=== PATIENT | female | born 1955 ===

== ENCOUNTER 2020-11-23 11:57 | Outpatient (REF) | payer MEDICARE, SELFPAY ==
--- NOTE | 2020-11-23 12:03 | XR_ITS ---
EXAMINATION: XR CHEST CLINICAL INFORMATION: Cough. COMPARISON: Chest 04/11/2013 TECHNIQUE: 2 views of the chest were obtained. FINDINGS: The lungs are hyperinflated but clear. The heart size and pulmonary vascularity is normal. Is mild spondylosis dorsal spine. XR/XR chest 2V IMPRESSION: Hyperinflated lungs without any acute process.
== END 2020-11-23 11:58 | disposition home or self-care (01) ==
LOC: HO.XRAY 11:57
PROVIDERS: PCP Internal Medicine; Visit Provider Internal Medicine
DX: R05 Cough (principal)
CPT/HCPCS: 71046

== ENCOUNTER 2020-12-20 14:19 | Outpatient (REF) | payer MEDICARE, SELFPAY ==
--- NOTE | ~2020-12-20 | MM_ITS ---
EXAMINATION: MM SCREENING DIGITAL BREAST TOMOSYNTHESIS, BILATERAL CLINICAL INFORMATION: Screening. Asymptomatic. The lifetime risk of breast cancer based on the Tyrer-Cuzick Model is 4%. COMPARISON: Mammography: 12/15/2019, 09/24/2018, 08/23/2017, 08/06/2016, 06/15/2015, 05/20/2014, and 06/24/2013. TECHNIQUE: Digital breast tomosynthesis is performed in both the craniocaudal and mediolateral oblique views along with computer-aided detection (CAD). Synthesized 2D images are generated from the tomosynthesis. Additional left CC view is provided. FINDINGS: There are scattered areas of fibroglandular density (ACR BI-RADS breast composition Category b). There is a fibronodular parenchymal pattern similar to prior exams. There are no significant masses, abnormal calcifications, or other abnormalities. Again, there is a chronic macrolobulated mass mid central 3:00 left breast with associated benign bulky calcification suggesting degenerating fibroadenoma. The axilla and skin contours are unremarkable. MM/MM tomosynthesis screening BI IMPRESSION: There are no significant changes from prior exams. ASSESSMENT: BI-RADS 2: Benign RECOMMENDATION: Routine annual mammography screening. This patient's information was entered into a reminder system with a target due date for their next mammogram.
== END 2020-12-20 14:20 | disposition home or self-care (01) ==
LOC: HO.MAMMO 14:19
PROVIDERS: PCP Internal Medicine; Visit Provider Internal Medicine
DX: Z12.31 Encounter for screening mammogram for malignant neoplasm of breast (principal)
CPT/HCPCS: 77063; 77067

== ENCOUNTER → 2021-03-31 10:20 | Outpatient (BNVA) | payer MEDICARE, SELFPAY | PROVIDERS: PCP Internal Medicine; Referring Provider Internal Medicine; Visit Provider Nurse Practitioner | DX: Z01.818 Encounter for other preprocedural examination (principal); J43.9 Emphysema, unspecified; I25.10 Atherosclerotic heart disease of native coronary artery without angina pectoris; Z79.899 Other long term (current) drug therapy | CPT/HCPCS: 99202 ==

== ENCOUNTER 2021-05-03 12:01 | Day surgery (SDC) | payer MEDICARE, SELFPAY ==
--- NOTE | 2021-05-02 10:20 | HO.ANESPROP2 ---
HPI - Anesthesia Eval Consult details Narrative: 65yo F for Colonoscopy 04/18/21 asthma exac with prednisone/abx from PCP Overdue for routine cardiac f/u (scheduled for 06/2021). Per PCP and GI evaluations, cardiac conditions stable/no angina. PMFSH Active Problems Active Problems: All Active Problems (Updated 04/27/21 @ 14:08 by Jada Warren) Type 2 diabetes mellitus with hyperglycemia (Acute) COVID-19 virus infection (Acute) Osteoarthritis (Acute) Cough (Acute) Colon cancer screening (Acute) Asthma (Acute) Obesity (BMI 30-39.9) (Acute) COPD (chronic obstructive pulmonary disease) (Acute) Anxiety (Acute) Hypercholesterolemia (Acute) Coronary artery disease (Acute) Hypertension (Acute) Past Medical History Medical History Anxiety Asthma COPD (chronic obstructive pulmonary disease) Coronary artery disease COVID-19 virus infection Hypercholesterolemia Hypertension Obesity (BMI 30-39.9) Rectocele Type 2 diabetes mellitus with hyperglycemia Vaginal prolapse Vitamin D deficiency Family History Family History Father Esophageal cancer Mother Hypertension CVD (cardiovascular disease) Daughter Cancer Surgical History Surgical History History of arthroscopy of left knee History of knee replacement procedure of left knee History of orthopedic surgery History of vaginal hysterectomy Social History Social History Housing: House (rented) Alcohol intake: current Alcohol intake frequency: holidays/special occasions only Patient Tobacco Use Status: Former Tobacco user (9 years) Quit Date: 9 years ago Current occupational status: retired [employer] Allergies Allergy/AdvReac Type Severity Reaction Status Date / Time No Known Allergies Allergy Verified 04/18/21 15:49 Home Medications Medication Instructions Recorded Confirmed Last Taken Type aspirin 81 mg tablet,delayed 81 mg PO DAILY 10/05/20 04/27/21 05/02/21 History release cholecalciferol (vitamin D3) 25 25 mcg PO DAILY 10/05/20 04/27/21 Unknown History mcg (1,000 unit) capsule Exam Exam Date and Time: May 02, 2021 1020 Assessment and Plan Assessment Anesthesia Assessment: Chart Reviewed
[2021-05-03 11:49] VITALS: BMI 39.6
[2021-05-03 12:04] VITALS: BP 170/77; PULSE 74; RESP 18; TEMP 36.8; O2SAT 94
[2021-05-03 12:22] VITALS: BP 127/54; PULSE 68; RESP 18; TEMP 36.1; O2SAT 95
[2021-05-03 12:22] LABS: Glucose, Whole Blood 160 mg/dL (60-115)
--- NOTE | 2021-05-03 12:26 | P.CONAN_ITS ---
[facility] Active Problems Active Problems: All Active Problems (Updated 05/02/21 @ 13:01 by Dana boone) Osteoarthritis (Acute) Cough (Acute) Colon cancer screening (Acute) Obesity (BMI 30-39.9) (Acute) COPD (chronic obstructive pulmonary disease) (Acute) Anxiety (Acute) Hypercholesterolemia (Acute) Coronary artery disease (Acute) Hypertension (Acute) Past Medical History Medical History Anxiety Asthma COPD (chronic obstructive pulmonary disease) Coronary artery disease COVID-19 virus infection Hypercholesterolemia Hypertension Obesity (BMI 30-39.9) Rectocele Type 2 diabetes mellitus with hyperglycemia Vaginal prolapse Vitamin D deficiency Family History Family History Father Esophageal cancer Mother Hypertension CVD (cardiovascular disease) Daughter Cancer Surgical History Surgical History History of arthroscopy of left knee History of knee replacement procedure of left knee History of orthopedic surgery History of vaginal hysterectomy Social History Social History Housing: House (rented) Alcohol intake: current Alcohol intake frequency: holidays/special occasions only Patient Tobacco Use Status: Former Tobacco user (9 years) Quit Date: 9 years ago Are you DNR?: No Advance Directives: No Advance Directives Information Provided: No Current occupational status: retired Meds Allergies Allergy/AdvReac Type Severity Reaction Status Date / Time No Known Allergies Allergy Verified 04/18/21 15:49 Home Medications Medication Instructions Recorded Confirmed Last Taken Type aspirin 81 mg tablet,delayed 81 mg PO DAILY 10/05/20 04/27/21 05/02/21 History release cholecalciferol (vitamin D3) 25 25 mcg PO DAILY 10/05/20 04/27/21 Unknown History mcg (1,000 unit) capsule Exam Exam Date and Time: May 03, 2021 1226 Height,Weight and Vital Signs: Height 5 ft 6 in Weight 111.584 kg Last Vital Signs Temp 97 F 05/03/21 12:22 Pulse 68 05/03/21 12:22 Resp 18 05/03/21 12:22 BP 127/54 L 05/03/21 12:22 Pulse Ox 95 05/03/21 12:22 Pertinent Lab Results Pertinent Lab Results: Laboratory Tests 05/03/21 12:11 POC Glucose 160 H Airway Mallampati Class: III TM Dist: >3cm Neck ROM: Full Heart: RRR Lungs: CTA
[2021-05-03] MEDS: Lactated Ringers 500 ML 20 ML IVCONT (12:40)
--- NOTE | 2021-05-03 12:50 | MHC.SHP ---
Pre-Procedural Eval Section A Date of Service: 05/03/21 Section B Chief Complaint: Screening Relevant Family History (Specify if Yes): No Relevant Social History: None Present Medications: see Short Stay Collaborative assessment Medical History: Significant History (Anxiety Asthma COPD (chronic obstructive pulmonary disease) Coronary artery disease COVID-19 virus infection Hypercholesterolemia Hypertension Obesity (BMI 30-39.9) Rectocele Type 2 diabetes mellitus with hyperglycemia Vaginal prolapse Vitamin D deficiency) History of Previous Operations: Relevant previous surgery/procedure and date(s) (History of arthroscopy of left knee History of knee replacement procedure of left knee History of orthopedic surgery History of vaginal hysterectomy) Allergies: Allergies Allergy/AdvReac Type Severity Reaction Status Date / Time No Known Allergies Allergy Verified 04/18/21 15:49 Review of Systems Sugical H&P ROS: Negative: Constitution, Cardiovascular, Respiratory, Neurological, Psychiatric, Hem-Onc, Allergic/Immunologic, Gastrointestinal, Genitourinary, Musculoskeletal, Integumentary, Endocrine and Eyes/Ears/Nose/Throat Exam Surgical H&P Exam: Normal: HEENT, Normal: Heart, Normal: Lungs, Normal: Extremities, Normal: Abdomen, Normal: Skin and Normal: Neurological Plan Diagnosis/Plan: Unchanged I have reviewed the history and physical and performed a pertinent physical examination on my patient. No changes have occurred unless specified.
--- NOTE | 2021-05-03 13:23 | P.BOP_ITS ---
Brief Operative Note Date of Service: 05/03/21 Pre-op diagnosis: colon screening Post-op diagnosis: same Procedure: see op note Surgeon: Rohit Helton MD Anesthesia: MAC Was an Sound Equipment Mechanic used for this Procedure?: No Estimated blood loss (mL): 0 Condition: stable Disposition: PACU
--- NOTE | 2021-05-03 13:23 | W.PM.OPN ---
Operative Note Operative Note Date of Service: 05/03/21 Narrative: Operative Information Procedure Description: Colonoscopy COLONOSCOPY Instrument: Olympus variable stiffness pediatric scope 190L Colonoscopy Monitoring: Vital signs and clinical assessment, continuous EKG monitoring, Pulse oximetry, Carbon Dioxide monitoring and blood pressure monitoring were done throughout the procedure. Colon withdrawal time was 14 minutes. Procedure: The patient was placed in the left lateral decubitis position and pre-procedure medications were administered. After a digital rectal examination of the ano-rectum, the video colonoscope was inserted into the rectum and advanced through the colon to the cecum/TI. The colonoscope was slowly withdrawn in a retrograde panoramic fashion and the colon mucosa was carefully examined including a retroflexed view of the rectum. Findings and interventions are described below. Procedure Difficulty:moderate Findings: Terminal Ileum-normal Cecum:normal Ascending Colon: 8-9 mm sessile polyp removed with cold snare Transverse Colon -normal Descending Colon:normal Sigmoid Colon: normal Rectum: Retroflexion with moderate sized internal hemorrhoids, grade I Anorectum - normal Colon preparation: [place] Bowel Preparation Scale Right colon; 2 Transverse colon: 2 Left colon; 2 (0 = Unprepared colon segment with mucosa not seen due to solid stool that cannot be cleared. 1 = Portion of mucosa of the colon segment seen, but other areas of the colon segment not well seen due to staining, residual stool and/or opaque liquid. 2 = Minor amount of residual staining, small fragments of stool and/or opaque liquid, but mucosa of colon segment seen well. 3 = Entire mucosa of colon segment seen well with no residual staining, small fragments of stool or opaque liquid) Impression and Post Procedure Diagnosis: polyp internal hemorrhoids Plan: High fiber diet leaflet Avoid straining at stool, epsom salts and sitz bath, anusol supps or cream prn Repeat Colonoscopy in 5 years or earlier if clinically indicated Above findings were reviewed with the patient and relevant handouts were provided if indicated.
[2021-05-03 13:30] VITALS: BP 91/55; PULSE 74; RESP 16; TEMP 36.2; O2SAT 95
[2021-05-03 13:45] VITALS: BP 115/60; PULSE 65; RESP 18; O2SAT 97
== END 2021-05-03 14:30 | disposition home or self-care (01) ==
PROVIDERS: PCP Internal Medicine; Visit Provider Internal Medicine Gastroenterology
PROC: 0DJD8ZZ Inspection of Lower Intestinal Tract, Via Natural or Artificial Opening Endoscopic (ICD-10-PCS; CPT 45378; principal; 2021-05-03 13:10)
DX: Z12.11 Encounter for screening for malignant neoplasm of colon (principal); Z80.0 Family history of malignant neoplasm of digestive organs; D12.2 Benign neoplasm of ascending colon; K64.0 First degree hemorrhoids; J44.9 Chronic obstructive pulmonary disease, unspecified; I25.10 Atherosclerotic heart disease of native coronary artery without angina pectoris; Z98.61 Coronary angioplasty status; I10 Essential (primary) hypertension; E11.65 Type 2 diabetes mellitus with hyperglycemia; Z79.84 Long term (current) use of oral hypoglycemic drugs; Z79.82 Long term (current) use of aspirin; Z79.51 Long term (current) use of inhaled steroids; Z86.16 Personal history of COVID-19; Z87.891 Personal history of nicotine dependence
CPT/HCPCS: 45385; 82947; 88305

== ENCOUNTER 2021-05-25 14:13 | Emergency (ER) | payer MEDICARE, SELFPAY ==
--- NOTE | ~2021-05-25 | XR_ITS ---
EXAMINATION: XR CHEST CLINICAL INFORMATION: SOB. COMPARISON: Chest 11/23/2020 TECHNIQUE: 2 views of the chest were obtained. FINDINGS: The lungs are well-inflated with minimal platelike atelectasis left lung base. The heart size and the pulmonary vascularity is normal. No gross bony abnormality seen. XR/XR chest 2V IMPRESSION: Minimal atelectatic changes left lung base. Otherwise the lungs are clear. No major change from previous study 11/23/2020.
[2021-05-25 14:19] VITALS: BP 122/55; PULSE 69; RESP 16; TEMP 36.7; O2SAT 92; BMI 39.5
--- NOTE | 2021-05-25 14:21 | ECG_ITS ---
Test Reason : CHEST PAIN Blood Pressure : / mmHG Vent. Rate : 061 BPM Atrial Rate : 061 BPM P-R Int : 138 ms QRS Dur : 092 ms QT Int : 480 ms P-R-T Axes : 014 -15 058 degrees QTc Int : 483 ms Normal sinus rhythm Possible Inferior infarct , age undetermined Abnormal ECG When compared with ECG of 18-AUG-2013 07:41, Nonspecific T wave abnormality, improved in Lateral leads Referred By: Luz Scott Electronically Signed By:JESSICA GREGG MD
--- NOTE | 2021-05-25 14:26 | ED_ITS ---
HPI - SOB/Dyspnea General Chief Complaint: Dyspnea Stated Complaint: chest pain from dr office Time Seen by Provider: 05/25/21 14:21 Source: patient and EMS Mode of arrival: EMS Limitations: no limitations History of Present Illness HPI Narrative: 65-year-old female coming from a doctor's office with a past medical history of COPD, high cholesterol, hypertension, coronary artery disease, eay-[id number] diabetes here with complaints of left-sided chest discomfort since last evening with shortness of breath. She also is complaining of dry cough but no fevers or chills or body aches. Chest pain is intermittent. Worsened with palpation and deep breathing. Radiates to left shoulder. No leg swelling or pain. No recent travel or sick contact. There was concern from Dr. Garcia's office that patient may be in AFib and she was sent in for further evaluation. She did receive aspirin 324 mg prior to arrival she also received 1 sublingual nitro which improved her pain from 8/10 to 6/10. Of note, the patient tells me she recently found out her daughter has breast cancer and this is causing some depression and anxiety. Related Data Home Medications Medication Instructions Recorded Confirmed aspirin 81 mg tablet,delayed 81 mg PO DAILY 10/05/20 05/25/21 release cholecalciferol (vitamin D3) 25 25 mcg PO DAILY 10/05/20 05/25/21 mcg (1,000 unit) capsule Previous Rx's Medication Instructions Recorded tramadol 50 mg tablet 50 mg PO Q8H PRN #90 tab 10/05/20 fluticasone furoate 200 1 ea PO DAILY #180 ea 11/08/20 mcg-vilanterol 25 mcg/dose inhalation powder amitriptyline 10 mg tablet 10 mg PO DAILY PRN #90 tab 11/17/20 amlodipine 5 mg tablet 5 mg PO DAILY #90 tab 12/08/20 ezetimibe 10 mg tablet 10 mg PO DAILY #90 tab 01/31/21 lorazepam 1 mg tablet 1 mg PO BEDTIME 90 Days #90 tab 02/22/21 atorvastatin 80 mg tablet 80 mg PO DAILY 90 Days #90 tab 03/23/21 bisacodyl 5 mg tablet,delayed 10 mg PO BEDTIME 2 Days #4 tab 03/31/21 release peg 3350-electrolytes 236 240 ml PO Q10M 1 Days #4000 ml 03/31/21 gram-22.74 gram-6.74 gram-5.86 gram solution albuterol sulfate 90 mcg/actuation 1 puff PO Q4H PRN #8.5 g 04/05/21 aerosol inhaler blood sugar diagnostic #50 ea 04/05/21 blood-glucose meter #1 ea 04/05/21 lancets 30 gauge #100 ea 04/05/21 metformin 500 mg tablet 500 mg PO BID #180 tab 04/11/21 metoprolol tartrate 25 mg tablet 25 mg PO DAILY 90 Days #90 tab 05/09/21 Allergies Allergy/AdvReac Type Severity Reaction Status Date / Time No Known Allergies Allergy Verified 05/25/21 14:26 Review of Systems Review of Systems: Yes all other systems are reviewed and are negative Constitutional: Constitutional: Reports no additional constitutional complaints, Denies body ache(s), Denies chills, Denies fever(s), Denies headache(s) and Denies weakness Eyes: Eyes: Reports no additional eye complaints and Denies change in vision ENT: Reports system reviewed and no additional complaints, except as documented, Denies dizziness, Denies headache(s), Denies nasal congestion, Denies nasal discharge and Denies neck pain Cardiovascular: Cardiovascular: Reports no additional cardiovascular complaints, Reports chest pain, Denies leg edema and Reports dyspnea Respiratory: Respiratory: Reports no additional respiratory complaints, Denies cough and Reports dyspnea Gastrointestinal: Gastrointestinal: Reports no additional gastrointestinal complaints, Denies abdominal pain, Denies diarrhea, Denies nausea and Denies vomiting Genitourinary: Genitourinary: Reports no additional female genitourinary complaints and Denies urinary incontinence Musculoskeletal: Musculoskeletal: Reports no additional musculoskeletal complaints, Denies back pain, Denies arthralgias, Denies joint swelling, Denies neck pain, Denies numbness and Denies tingling Integumentary/Breasts: Skin/Breast: Reports system reviewed and no additional complaints, except as docu and Denies rash Neurologic: Reports system reviewed and no additional complaints, except as documented, Denies Abnormal speech present, Denies dizziness, Denies headache(s), Denies numbness, Denies tingling and Denies weakness PMFSH Past Medical History Attestation statement: The following information was validated with the patient. Source: old records reviewed and nursing notes reviewed Medical History Anxiety Asthma COPD (chronic obstructive pulmonary disease) Coronary artery disease COVID-19 virus infection Hypercholesterolemia Hypertension Obesity (BMI 30-39.9) Rectocele Type 2 diabetes mellitus with hyperglycemia Vaginal prolapse Vitamin D deficiency Surgical History History of arthroscopy of left knee History of knee replacement procedure of left knee History of orthopedic surgery History of vaginal hysterectomy Family History Family History Father Esophageal cancer Mother Hypertension CVD (cardiovascular disease) Daughter Cancer Social History Social History Housing: House (rented) Alcohol intake: current Alcohol intake frequency: does not drink Patient Tobacco Use Status: Former Tobacco user Quit Date: 9 years ago Tobacco use type: Cigarette e-Cigarette/Vaping Use: Never Used Second Hand Smoke Exposure: No Advance Directives: No Advance Directives Information Provided: Yes service: No Current occupational status: retired Physical Exam Vital Signs: Vital Signs: Last Vital Signs Temp 97.6 F 05/25/21 16:51 Pulse 63 05/25/21 17:31 Resp 14 05/25/21 17:31 BP 130/60 05/25/21 17:31 Pulse Ox 95 05/25/21 16:51 Body Mass Index 39.5 Const: General: cooperative, healthy appearing, comfortable and no acute distress Orientation/consciousness: patient oriented x3 Limitations: no limitations HENMT: Head: Yes normal to inspection Ears: hearing grossly normal bilaterally General nose exam: Normal external nose present Face and sinus: Yes normal facial exam Mouth: Normal oral and palatal mucosa present Throat: Yes posterior oropharynx normal Eyes: General: appearance normal, both eyes and all related structures Pupils: Equal, round and reactive pupils present Neck: Neck: Yes normal visual inspection Chest: Other: worsened with deep breathing Chest palpation & inspection: normal inspection of the chest and tenderness (Central chest tender to palpate, left chest ttp) Resp: Other: Mild tachypnea Effort & Inspection: normal respiratory effort Auscultation: clear to auscultation bilaterally Cardio: Rate: regular rate Rhythm: regular rhythm Peripheral pulses: Peripheral pulses 2+ throughout GI: Inspection: Yes normal to inspection Palpation (GI): Soft to palpation and nontender Auscultation: normal bowel sounds Back/Spine/Pelvis: Thoracic/Lumbar Spine: thoracic and lumbar spine normal to inspection Skin: General skin exam: no rashes or lesions noted Neuro: General: patient oriented x3, no focal motor deficits and normal sensation to monofilament Cranial nerves: Yes Equal, round and reactive pup ils present Cognition (Neuro): normal cognition Speech: No Abnormal speech present Gait exam (Neuro): Normal gait present Motor exam (neuro): 5/5 motor strength present throughout Extrem: General: Yes normal to inspection, Yes no pedal edema and Yes no calf tenderness Course Course Course Narrative: 65-year-old female here with pleuritic chest pain, SOB since last evening. Sent in from Dr GARCIA office for concern for afib. Received ASA, SL NTG INSURANCE CHECKER. Will check labs, EKG, chest x-ray 1540-labs unremarkable. Chest x-ray and EKG show no acute finding. Her initial troponin was mildly indeterminate will plan for repeat 3 hour troponin. Patient tells me her daughter was recently diagnosed breast cancer and she has had a lot of anxiety and stress in regards to this. She thinks this might be causing some of her symptoms. 1800-Sign out to Trice LINDO pending above. MDM - SOB/Dyspnea MDM Narrative Medical decision making narrative: ACS-less likely with negative troponin x2 and EKG Less likely PE with negative D-dimer, no tachypnea, hypoxia or tachycardia for clinical findings of DVT Differential Diagnosis Differential diagnosis: Likely acute exacerbation of chronic obstructive airways disease, congestive heart failure, pneumonia and pulmonary embolism Medical Records Attestation: I reviewed the patient's medical records. Lab Data Attestation: I reviewed the patient's lab results. Result diagrams: 05/25/21 14:35 05/25/21 14:34 Labs: Lab Results 05/25/21 05/25/21 05/25/21 Range/Units 14:32 14:34 14:34 WBC (4.8-10.8) X10*3/uL RBC (4.20-5.50) X10*6/uL Hgb (12.0-16.0) g/dl Hct (37-47) % MCV (80-98) fL MCH (27.0-33.0) pg MCHC (31.0-35.0) g/dl RDW (11.0-16.0) % Plt Count (160-400) X10*3/uL MPV (9.4-12.3) fL Immature Gran % (Auto) (0.0-0.4) % Neut % (Auto) (45-73) % Lymph % (Auto) (20-40) % Blanco % (Auto) (2-11) % Eos % (Auto) (0-4) % Baso % (Auto) (0-2) % Lymph # (Auto) (1.2-4.9) X10*3/uL Blanco # (Auto) (0.1-1.2) X10*3/uL Eos # (Auto) (0.0-0.4) X10*3/uL Baso # (Auto) (0.0-0.2) X10*3/uL Abs Immat Gran (auto) (0.00-0.03) X10*3/uL Absolute Neuts (auto) (2.0-8.3) X10*3/uL Absolute Nucleated RBC (0.0-0.012) X10*3/uL Nucleated RBC % (auto) (0.0-0.2) /100WBC PT (9.9-13.0) SEC INR (0.9-1.1) D-Dimer NG/ML Sodium 139 (135-145) mmol/L Potassium 4.3 (3.3-5.1) mmol/L Chloride 106 (96-108) mmol/L Carbon Dioxide 26 (22-29) mmol/L Anion Gap 11 L (12-20) BUN 8 L (9-16) mg/dL Creatinine 0.75 (0.5-1.4) mg/dL Estim Creat Clear Calc 91.9 Estimated GFR > 60 Random Glucose 127 H (60-115) mg/dL Calcium 9.0 (8.4-10.2) mg/dL Magnesium 1.9 (1.6-2.6) mg/dL Total Bilirubin 0.4 (0.0-1.0) mg/dL Direct Bilirubin 0.2 (0.0-0.5) mg/dL AST 91 H (5-31) U/L ALT 72 H (0-31) U/L Alkaline Phosphatase 65 (39-117) U/L Troponin I High Sens 12.9 (<3.5-17.0) ng/L B-Natriuretic Peptide 34 (<100) pg/mL Total Protein 7.3 (6.5-8.0) g/dL Albumin 3.9 (3.5-5.0) g/dL COVID-19 ([facility]) Negative (Negative) COVID-19 Clin Com See Note 05/25/21 05/25/21 Range/Units 14:35 14:35 WBC 10.0 (4.8-10.8) X10*3/uL RBC 4.22 (4.20-5.50) X10*6/uL Hgb 12.6 (12.0-16.0) g/dl Hct 39.1 (37-47) % MCV 92.7 (80-98) fL MCH 29.9 (27.0-33.0) pg MCHC 32.2 (31.0-35.0) g/dl RDW 14.2 (11.0-16.0) % Plt Count 213 (160-400) X10*3/uL MPV 9.7 (9.4-12.3) fL Immature Gran % (Auto) 0.2 (0.0-0.4) % Neut % (Auto) 39.1 L (45-73) % Lymph % (Auto) 45.4 H (20-40) % Blanco % (Auto) 7.4 (2-11) % Eos % (Auto) 7.1 H (0-4) % Baso % (Auto) 0.8 (0-2) % Lymph # (Auto) 4.6 (1.2-4.9) X10*3/uL Blanco # (Auto) 0.7 (0.1-1.2) X10*3/uL Eos # (Auto) 0.7 H (0.0-0.4) X10*3/uL Baso # (Auto) 0.1 (0.0-0.2) X10*3/uL Abs Immat Gran (auto) 0.02 (0.00-0.03) X10*3/uL Absolute Neuts (auto) 3.9 (2.0-8.3) X10*3/uL Absolute Nucleated RBC 0.000 (0.0-0.012) X10*3/uL Nucleated RBC % (auto) 0.0 (0.0-0.2) /100WBC PT 12.9 (9.9-13.0) SEC INR 1.1 (0.9-1.1) D-Dimer < 200 NG/ML Sodium (135-145) mmol/L Potassium (3.3-5.1) mmol/L Chloride (96-108) mmol/L Carbon Dioxide (22-29) mmol/L Anion Gap (12-20) BUN (9-16) mg/dL Creatinine (0.5-1.4) mg/dL Estim Creat Clear Calc Estimated GFR Random Glucose (60-115) mg/dL Calcium (8.4-10.2) mg/dL Magnesium (1.6-2.6) mg/dL Total Bilirubin (0.0-1.0) mg/dL Direct Bilirubin (0.0-0.5) mg/dL AST (5-31) U/L ALT (0-31) U/L Alkaline Phosphatase (39-117) U/L Troponin I High Sens (<3.5-17.0) ng/L B-Natriuretic Peptide (<100) pg/mL Total Protein (6.5-8.0) g/dL Albumin (3.5-5.0) g/dL COVID-19 ([facility]) (Negative) COVID-19 Clin Com Imaging Data Chest x-ray: Attestation: I personally reviewed and interpreted this imaging study as follows: Radiologist's impression: [address] [id number] ReportSigned Patient: Trinidad Lee#: [id number]: 1955cct:[id number]/Sex: 65 / FADM Date: 05/25/21Loc: [facility] [place]: Ordering Physician: LIONEL CELAYA NP Date of Service: 05/25/21 Procedure(s): XR chest 2V Accession Number(s): [id number] cc: LIONEL CELAYA NP~ EXAMINATION: XR CHEST CLINICAL INFORMATION: SOB. COMPARISON: Chest 11/23/2020 TECHNIQUE: 2 views of the chest were obtained. FINDINGS: The lungs are well-inflated with minimal platelike atelectasis left lung base. The heart size and the pulmonary vascularity is normal. No gross bony abnormality seen. XR/XR chest 2V IMPRESSION: Minimal atelectatic changes left lung base. Otherwise the lungs are clear. No major change from previous study 11/23/2020. ECG Data Attestation: I personally reviewed and interpreted this ECG as follows: ECG interpretation date: 05/25/21 ECG interpretation time: 14:27 Interpretation: Normal sinus rhythm with a rate of 61, normal ME, normal QRS, QTC 483 Discharge Plan Discharge Clinical Impression: Atypical chest pain, Anxiety Patient Disposition: Home, Self-Care Instructions: Chest Pain (ED), Anxiety (ED) Additional Instructions: Your EKG and cardiac enzymes were normal. You should follow-up with your primary care doctor in regards to your complaints Prescriptions: No Action fluticasone furoate-vilanterol [Breo Ellipta] 200-25 mcg/dose blister with device 1 ea PO DAILY Qty: 180 RF: 3 amitriptyline 10 mg tablet 10 mg PO DAILY PRN (Reason: ppp) Qty: 90 RF: 2 amlodipine 5 mg tablet 5 mg PO DAILY Qty: 90 RF: 1 ezetimibe 10 mg tablet 10 mg PO DAILY Qty: 90 RF: 3 atorvastatin 80 mg tablet 80 mg PO DAILY 90 Days Qty: 90 RF: 2 (DME) blood-glucose meter [OneTouch Verio Meter] Misc See Rx Instructions .ROUTE .MEDSUPPLY Qty: 1 RF: 0 (DME) OneTouch Verio test strips Strip See Rx Instructions .ROUTE .MEDSUPPLY Qty: 50 RF: 12 (DME) lancets [OneTouch Delica Lancets] 30 gauge misc See Rx Instructions .ROUTE .MEDSUPPLY Qty: 100 RF: 3 albuterol sulfate 90 mcg/actuation HFA aerosol inhaler 1 puff PO Q4H PRN (Reason: for dyspnea) Qty: 8.5 RF: 0 metformin 500 mg tablet 500 mg PO BID Qty: 180 RF: 0 metoprolol tartrate 25 mg tablet 25 mg PO DAILY 90 Days Qty: 90 RF: 2 aspirin [Adult Aspirin Regimen] 81 mg tablet,delayed release (DR/EC) 81 mg PO DAILY RF: 0 cholecalciferol (vitamin D3) 25 mcg (1,000 unit) capsule 25 mcg PO DAILY RF: 0 tramadol 50 mg tablet 50 mg PO Q8H PRN (Reason: pain) Qty: 90 RF: 0 lorazepam 1 mg tablet 1 mg PO BEDTIME 90 Days Qty: 90 RF: 2 bisacodyl [Dulcolax (bisacodyl)] 5 mg tablet,delayed release (DR/EC) 10 mg PO BEDTIME 2 Days Qty: 4 RF: 0 peg 3350-electrolytes [Golytely] 236-22.74-6.74 -5.86 gram recon soln 240 ml PO Q10M 1 Days Qty: 4000 RF: 0 Referrals: Po,Terence Figueroa MD [Primary Care Provider] - 2 days
[2021-05-25 14:39] LABS: MANUAL DIFF FLAG NO
[2021-05-25 14:43] LABS: Basophils Absolute Auto 0.1 X10*3/uL (0.0-0.2); Basophils Percent Auto 0.8 % (0-2); Eosinophils Absolute Auto 0.7 X10*3/uL (0.0-0.4); Eosinophils Percent Auto 7.1 % (0-4); Hematocrit 39.1 % (37-47); Hemoglobin 12.6 g/dl (12.0-16.0); Imm Gran Abs Auto 0.02 X10*3/uL (0.00-0.03); Imm Gran Pct Auto 0.2 % (0.0-0.4); Lymphocytes Absolute Auto 4.6 X10*3/uL (1.2-4.9); Lymphocytes Percent Auto 45.4 % (20-40); Mean Corpuscular HGB Conc 32.2 g/dl (31.0-35.0); Mean Corpuscular Hemoglobin 29.9 pg (27.0-33.0); Mean Corpuscular Volume 92.7 fL (80-98); Mean Platelet Volume 9.7 fL (9.4-12.3); Monocytes Absolute Auto 0.7 X10*3/uL (0.1-1.2); Monocytes Percent Auto 7.4 % (2-11); Neutrophils Absolute Auto 3.9 X10*3/uL (2.0-8.3); Neutrophils Percent Auto 39.1 % (45-73); Platelet Count 213 X10*3/uL (160-400); Red Blood Count 4.22 X10*6/uL (4.20-5.50); Red Cell Distribution Width 14.2 % (11.0-16.0)
[2021-05-25 14:51] LABS: INTERNATIONAL NORM RATIO 1.1 (0.9-1.1); Prothrombin Time 12.9 SEC (9.9-13.0)
[2021-05-25 14:54] LABS: D Dimer < 200 NG/ML
[2021-05-25 15:01] LABS: COVID-19 Test Negative (Negative); IDNOW Serial# 9DD0AD1C
[2021-05-25 15:05] LABS: Alanine Aminotransferase 72 U/L (0-31); Albumin Level 3.9 g/dL (3.5-5.0); Alkaline Phosphatase 65 U/L (39-117); Anion Gap 11 (12-20); Aspartate Amino Transferase 91 U/L (5-31); Bilirubin Direct 0.2 mg/dL (0.0-0.5); Bilirubin Total 0.4 mg/dL (0.0-1.0); Blood Urea Nitrogen 8 mg/dL (9-16); Carbon Dioxide 26 mmol/L (22-29); Chloride 106 mmol/L (96-108); Creatinine Clr Calc Pharmacy 91.9; Estimated Glomerular Filt Rate > 60; Glucose Random 127 mg/dL (60-115); Magnesium 1.9 mg/dL (1.6-2.6); Potassium 4.3 mmol/L (3.3-5.1); Sodium 139 mmol/L (135-145); Total Protein 7.3 g/dL (6.5-8.0)
[2021-05-25] MEDS: Albuterol/Iprat 2.5/0.5MG 3 ML AMPUL.NEB INHALE (15:07)
[2021-05-25 15:08] VITALS: PULSE 60; O2SAT 97
[2021-05-25 15:10] LABS: B Type Natriuretic Peptide 34 pg/mL (<100); Troponin-I High Sensitivity 12.9 ng/L (<3.5-17.0)
[2021-05-25 16:51] VITALS: BP 126/57; PULSE 64; RESP 13; TEMP 36.4; O2SAT 95
[2021-05-25 17:31] VITALS: BP 130/60; PULSE 63; RESP 14
[2021-05-25 18:19] LABS: Troponin-I High Sensitivity 13.7 ng/L (<3.5-17.0)
== END 2021-05-25 19:02 | disposition home or self-care (01) ==
PROVIDERS: Nurse Practitioner Family; Emergency Provider Emergency Medicine Emergency Medical Services; PCP Internal Medicine
DX: R07.89 Other chest pain (principal); F41.9 Anxiety disorder, unspecified; R06.02 Shortness of breath; Z63.79 Other stressful life events affecting family and household; Z20.822 Contact with and (suspected) exposure to COVID-19; I10 Essential (primary) hypertension; E78.5 Hyperlipidemia, unspecified; E11.9 Type 2 diabetes mellitus without complications; J44.9 Chronic obstructive pulmonary disease, unspecified; Z79.899 Other long term (current) drug therapy; Z79.02 Long term (current) use of antithrombotics/antiplatelets; Z79.84 Long term (current) use of oral hypoglycemic drugs
CPT/HCPCS: 36415; 71046; 80048; 80076; 83735; 83880; 84484; 85025; 85379; 85610; 87635; 93005; 94640; 99284

== ENCOUNTER → 2021-06-01 10:58 | Outpatient (BNVA) | payer MEDICARE, SELFPAY | PROVIDERS: PCP Internal Medicine; Referring Provider Internal Medicine; Visit Provider Nurse Practitioner | DX: Z12.11 Encounter for screening for malignant neoplasm of colon (principal); D12.6 Benign neoplasm of colon, unspecified; Z80.0 Family history of malignant neoplasm of digestive organs | CPT/HCPCS: 99212 ==

== ENCOUNTER → 2021-08-01 09:55 | Outpatient (REF) | payer MEDICARE, SELFPAY ==
--- NOTE | 2021-08-01 10:00 | CA_ITS ---
Acquisition Time: 2021-08-01 09:59:42 Total Exercise Time: 00:03:42 Test Indications: CP, SOB Medications: SEE CHART Protocol: SALLY Max HR: 151 BPM 99% of Pred: 152 BPM Max BP: 206/088 mmHG Max Work Load: 4.6 METS Exercise stress test with exercise 3 min 42 sec of stage 1 of Sally protocol, with severe shortness of breath, no chest discomfort, without arrythmia, with hypertensive response to exercise with max BP 206/88, without EKG changes of ischemia however with suboptimal exercise time. Exercise goal was 5 min of standard Sally protocol. Test reviewed with Dr Pabon. Reviewed with Dr Baker and he will order a pharm nuclear stress test for further evaluation. Referred By: Mega Abraham Overread By: ARLENE LANDERS
== END ==
LOC: HO.CARD 09:55
PROVIDERS: Visit Provider Internal Medicine Cardiovascular Disease
DX: I25.10 Atherosclerotic heart disease of native coronary artery without angina pectoris (principal)
CPT/HCPCS: 93017

== ENCOUNTER 2021-12-26 14:39 | Outpatient (REF) | payer MEDICARE, SELFPAY ==
--- NOTE | ~2021-12-26 | MM_ITS ---
EXAMINATION: MM SCREENING DIGITAL BREAST TOMOSYNTHESIS, BILATERAL CLINICAL INFORMATION: Screening. Asymptomatic. The lifetime risk of breast cancer based on the Tyrer-Cuzick Model is 6%. COMPARISON: Mammography: 12/20/2020, 12/15/2019, 09/24/2018 TECHNIQUE: Digital breast tomosynthesis is performed in both the craniocaudal and mediolateral oblique views along with computer-aided detection (CAD). Synthesized 2D images are generated from the tomosynthesis. FINDINGS: There are scattered areas of fibroglandular density (ACR BI-RADS breast composition Category b). There are no significant masses, abnormal calcifications, or other abnormalities. Fine fibronodular parenchymal pattern is similar to prior exams. There is no interval mass or architectural abnormality. 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 There are scattered benign round calcifications in each breast. The axilla and skin contours are unremarkable. No significant changes from prior studies. MM/MM tomosynthesis screening BI IMPRESSION: No mammographic evidence of malignancy. ASSESSMENT: BI-RADS 2: Benign RECOMMENDATION: Routine annual mammography screening. This patient's information was entered into a reminder system with a target due date for their next mammogram.
== END 2021-12-26 14:40 | disposition home or self-care (01) ==
LOC: HO.MAMMO 14:39
PROVIDERS: PCP Internal Medicine; Visit Provider Internal Medicine
DX: Z12.31 Encounter for screening mammogram for malignant neoplasm of breast (principal)
CPT/HCPCS: 77063; 77067

== ENCOUNTER → 2022-04-09 12:43 | Outpatient (BNVA) | payer MEDICARE, SELFPAY | PROVIDERS: PCP Internal Medicine; Visit Provider Internal Medicine Pulmonary Disease | DX: J43.9 Emphysema, unspecified (principal); R06.00 Dyspnea, unspecified; R91.8 Other nonspecific abnormal finding of lung field | CPT/HCPCS: 99202 ==

== ENCOUNTER 2022-04-16 13:07 | Outpatient (REF) | payer MEDICARE, SELFPAY ==
--- NOTE | ~2022-04-16 | CT_ITS ---
EXAMINATION: CT CHEST WITHOUT CONTRAST CLINICAL INFORMATION: Pulmonary nodules. COMPARISON: Chest x-ray 05/25/2021. TECHNIQUE: Multidetector volumetric CT imaging of the chest was done. Axial MIP volume rendering provided. Sagittal and coronal reformatted images were obtained. This CT examination was performed using dose optimization techniques as appropriate, variously including the following: *Automated exposure control *Adjustment of mA and/or kV according to patient size (this includes techniques or standardized protocols for targeted exams where dose is matched to indication/reason for exam; i.e. extremities or head) *Use of iterative reconstruction technique DLP: 254 mGy-cm FINDINGS: RV MECHANIC: Unremarkable LUNGS: The lungs are well expanded with focal atelectatic changes right lower lobe. There is a punctate 1 mm subpleural nodule left lower lobe axial image 314/7. There is a 1 mm subpleural calcified right lower lobe axial image 265/7. Mild atelectatic changes are seen right upper lobe anterior segment. MEDIASTINUM: The thyroid lobes are symmetrical and normal. The central trachea and the bronchi are widely patent. Heart size and the great vessels are normal caliber. There are coronary artery calcifications present. No pericardial effusion seen. No abnormal size mediastinal or hilar lymph nodes seen. PLEURA: There is no pleural effusion. No pleural mass or thickening. AXILLA: No lymphadenopathy. UPPER ABDOMEN: Visualized liver, spleen, pancreas and bilateral adrenal glands unremarkable. There are no radiopaque gallstones. OSSEOUS STRUCTURES: There is mild spondylosis mid dorsal spine. There is no lytic process. CT/CT chest wo con IMPRESSION: Punctate 1 mm calcified and noncalcified nodules. No acute consolidation, mass or abnormal lymphadenopathy. Minimal atelectatic changes right middle lobe, right lower lobe and lingula. Fleischner guidelines were followed.
== END 2022-04-16 13:08 | disposition home or self-care (01) ==
LOC: HO.CT 13:07
PROVIDERS: PCP Internal Medicine; Visit Provider Internal Medicine Pulmonary Disease
DX: R91.8 Other nonspecific abnormal finding of lung field (principal)
CPT/HCPCS: 71250

== ENCOUNTER 2022-05-10 09:55 | Outpatient (REF) | payer MEDICARE, SELFPAY ==
[2022-05-10 10:31] LABS: MANUAL DIFF FLAG NO
[2022-05-10 11:27] LABS: Basophils Absolute Auto 0.1 X10*3/uL (0.0-0.2); Eosinophils Absolute Auto 0.6 X10*3/uL (0.0-0.4); Eosinophils Percent Auto 7.2 % (0-4); Hematocrit 41.3 % (37.0-47.0); Hemoglobin 13.3 g/dl (12.0-16.0); Imm Gran Abs Auto 0.02 X10*3/uL (0.00-0.03); Imm Gran Pct Auto 0.2 % (0.0-0.4); Lymphocytes Absolute Auto 3.8 X10*3/uL (1.2-4.9); Lymphocytes Percent Auto 42.1 % (20-40); Mean Corpuscular HGB Conc 32.2 g/dl (31.0-35.0); Mean Corpuscular Hemoglobin 29.8 pg (27.0-33.0); Mean Corpuscular Volume 92.6 fL (80.0-98.0); Mean Platelet Volume 10.2 fL (9.4-12.3); Monocytes Absolute Auto 0.6 X10*3/uL (0.1-1.2); Monocytes Percent Auto 6.4 % (2-11); Neutrophils Absolute Auto 3.9 x10*3/uL (2.0-8.3); Neutrophils Percent Auto 43.1 % (45-73); Platelet Count 222 X10*3/uL (160-400); Red Blood Count 4.46 X10*6/uL (4.20-5.50); Red Cell Distribution Width 14.6 % (11.0-16.0); White Blood Count 8.9 X10*3/uL (4.8-10.8)
[2022-05-10 11:33] LABS: Estimated Average Glucose 160 mg/dL; Hemoglobin A1c % 7.2 %
[2022-05-10 12:16] LABS: Alanine Aminotransferase 62 U/L (0-31); Albumin Level 4.1 g/dL (3.5-5.0); Alkaline Phosphatase 63 U/L (39-117); Anion Gap 14 (12-20); Aspartate Amino Transferase 87 U/L (5-31); Bilirubin Total 0.8 mg/dL (0.0-1.0); Blood Urea Nitrogen 7 mg/dL (9-16); Calcium 9.4 mg/dL (8.4-10.2); Carbon Dioxide 28 mmol/L (22-29); Chloride 104 mmol/L (96-108); Cholesterol 131 mg/dL; Estimated Glomerular Filt Rate > 60; Glucose Random 151 mg/dL (60-115); HDL Cholesterol 36 mg/dL; LDL Cholesterol Calculated 60 mg/dl; Potassium 4.7 mmol/L (3.3-5.1); Sodium 141 mmol/L (135-145); Total Protein 7.8 g/dL (6.5-8.0); Triglycerides 178 mg/dL
[2022-05-10 12:19] LABS: Free T4 (Free Thyroxine) 0.97 ng/dL (0.71-1.85); Thyroid Stimulating Hormone 1.94 uIU/mL (0.32-4.0); Vitamin D 25-OH Total 38.9 ng/mL (>30)
[2022-05-10 12:24] LABS: Creatinine Urine 55.98 mg/dL; Microalbum/Creatinine Ratio Ur 10.7 ug/mg cr
[2022-05-10 12:30] LABS: Folate 11.9 ng/mL (> or = 4.0); Vitamin B12 374 pg/mL (200-900)
== END 2022-05-10 09:56 | disposition home or self-care (01) ==
LOC: HO.LAB 09:55
PROVIDERS: PCP Internal Medicine; Visit Provider Internal Medicine
DX: E11.65 Type 2 diabetes mellitus with hyperglycemia (principal); E78.00 Pure hypercholesterolemia, unspecified
CPT/HCPCS: 36415; 80053; 80061; 82043; 82306; 82607; 82746; 83036; 84439; 84443; 85025

== ENCOUNTER 2022-05-14 12:50 | Outpatient (REF) | payer MEDICARE, SELFPAY ==
--- NOTE | 2022-05-14 17:02 | PFT_ITS ---
Forced vital capacity 95%, FEV1 is 97%, FEV1/FVC ratio 104%, OLS75-94 is 108% and MVV 79%. Post bronchodilator therapy, there was no change. Total lung capacity 101% and residual volume 100%. Diffusion capacity is 78%. CONCLUSION: Normal pulmonary function test. There is no evidence of obstructive or restrictive pulmonary disorder. MD MILADYS Trent/FATMATA / [id number]
== END 2022-05-14 12:51 | disposition home or self-care (01) ==
LOC: HO.RESP 12:50
PROVIDERS: PCP Internal Medicine; Visit Provider Internal Medicine Pulmonary Disease
DX: R06.00 Dyspnea, unspecified (principal)
CPT/HCPCS: 94060; 94727; 94729

== ENCOUNTER → 2022-07-03 14:06 | Outpatient (BNVA) | payer MEDICARE, SELFPAY | PROVIDERS: PCP Internal Medicine; Visit Provider Internal Medicine Pulmonary Disease | DX: J43.9 Emphysema, unspecified (principal); R91.8 Other nonspecific abnormal finding of lung field; M54.9 Dorsalgia, unspecified; G89.29 Other chronic pain; Z87.891 Personal history of nicotine dependence | CPT/HCPCS: 99212 ==

== ENCOUNTER 2022-08-29 14:54 | Outpatient (REF) | payer MEDICARE, SELFPAY ==
[2022-08-29 15:48] LABS: Basophils Absolute Auto 0.1 X10*3/uL (0.0-0.2); Basophils Percent Auto 0.8 % (0-2); Eosinophils Absolute Auto 0.7 X10*3/uL (0.0-0.4); Eosinophils Percent Auto 7.1 % (0-4); Hemoglobin 13.2 g/dl (12.0-16.0); Imm Gran Abs Auto 0.02 X10*3/uL (0.00-0.03); Imm Gran Pct Auto 0.2 % (0.0-0.4); Lymphocytes Absolute Auto 5.1 X10*3/uL (1.2-4.9); Lymphocytes Percent Auto 52.5 % (20-40); MANUAL DIFF FLAG SCAN; Mean Corpuscular HGB Conc 33.8 g/dl (31.0-35.0); Mean Corpuscular Hemoglobin 31.6 pg (27.0-33.0); Mean Corpuscular Volume 93.3 fL (80.0-98.0); Mean Platelet Volume 10.2 fL (9.4-12.3); Monocytes Absolute Auto 0.6 X10*3/uL (0.1-1.2); Monocytes Percent Auto 6.1 % (2-11); Neutrophils Absolute Auto 3.3 x10*3/uL (2.0-8.3); Neutrophils Percent Auto 33.3 % (45-73); Platelet Count 167 X10*3/uL (160-400); Red Blood Count 4.18 X10*6/uL (4.20-5.50); Red Cell Distribution Width 14.5 % (11.0-16.0); SCAN SMEAR FLAG 1; White Blood Count 9.8 X10*3/uL (4.8-10.8)
[2022-08-29 16:09] LABS: SLIDE REVIEW VERIFIED
== END 2022-08-29 14:55 | disposition home or self-care (01) ==
LOC: HO.LAB 14:54
PROVIDERS: PCP Internal Medicine; Visit Provider Internal Medicine Pulmonary Disease
DX: J43.9 Emphysema, unspecified (principal); Z91.09 Other allergy status, other than to drugs and biological substances; R05.3 Chronic cough
CPT/HCPCS: 36415; 82785; 85025; 86003; 99212

== ENCOUNTER → 2022-10-16 13:52 | Outpatient (BNVA) | payer MEDICARE, SELFPAY | PROVIDERS: PCP Internal Medicine; Visit Provider Internal Medicine Pulmonary Disease | DX: J44.9 Chronic obstructive pulmonary disease, unspecified (principal); R05.3 Chronic cough; Z91.09 Other allergy status, other than to drugs and biological substances; Z79.899 Other long term (current) drug therapy | CPT/HCPCS: 99212 ==

== ENCOUNTER 2022-12-14 13:18 | Outpatient (REF) | payer MEDICARE, SELFPAY ==
--- NOTE | ~2022-12-14 | XR_ITS ---
EXAMINATION: XR ANKLE, RIGHT CLINICAL INFORMATION: Pain COMPARISON: None TECHNIQUE: AP, lateral, and mortise views of the right ankle. FINDINGS: There is a plate and screws transfixing an old healed distal fibular shaft fracture. Orthopedic hardware appears intact. No acute fracture or dislocation. Normal ankle mortise. Small calcaneal spur. XR/XR ankle RT 2V IMPRESSION: ORIF of old healed distal fibular shaft fracture.
== END 2022-12-14 13:19 | disposition home or self-care (01) ==
LOC: HO.XRAY 13:18
PROVIDERS: PCP Internal Medicine; Visit Provider Internal Medicine
DX: J44.9 Chronic obstructive pulmonary disease, unspecified (principal)
CPT/HCPCS: 73600

== ENCOUNTER 2023-02-11 13:25 | Outpatient (REF) | payer MEDICARE, SELFPAY ==
--- NOTE | ~2023-02-11 | MM_ITS ---
EXAMINATION: MM SCREENING DIGITAL BREAST TOMOSYNTHESIS, BILATERAL CLINICAL INFORMATION: Screening. Asymptomatic. The lifetime risk of breast cancer based on the Tyrer-Cuzick Model is 5%. COMPARISON: Mammography: 12/26/2021, 12/20/2020, 12/15/2019 TECHNIQUE: Digital breast tomosynthesis is performed in both the craniocaudal and mediolateral oblique views along with computer-aided detection (CAD). Synthesized 2D images are generated from the tomosynthesis. FINDINGS: There are scattered areas of fibroglandular density (ACR BI-RADS breast composition Category b). Breast tissue composition borders on heterogeneously dense. Again, there is fine fibronodular parenchymal pattern. 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 There is no significant mass or architectural abnormality or abnormal calcifications. The axilla and skin contours are unremarkable. MM/MM tomosynthesis screening BI IMPRESSION: No mammographic evidence of malignancy. ASSESSMENT: BI-RADS 2: Benign RECOMMENDATION: Routine annual mammography screening. This patient's information was entered into a reminder system with a target due date for their next mammogram.
== END 2023-02-11 13:26 | disposition home or self-care (01) ==
LOC: HO.MAMMO 13:25
PROVIDERS: PCP Internal Medicine; Visit Provider Internal Medicine
DX: Z12.31 Encounter for screening mammogram for malignant neoplasm of breast (principal)
CPT/HCPCS: 77063; 77067

== ENCOUNTER 2023-04-02 13:15 | Outpatient (REF) | payer MEDICARE, SELFPAY ==
[2023-04-02 14:21] LABS: Basophils Absolute Auto 0.1 X10*3/uL (0.0-0.2); Basophils Percent Auto 0.7 % (0-2); Eosinophils Absolute Auto 0.7 X10*3/uL (0.0-0.4); Eosinophils Percent Auto 6.5 % (0-4); Hematocrit 41.4 % (37.0-47.0); Hemoglobin 13.7 g/dl (12.0-16.0); Imm Gran Abs Auto 0.03 X10*3/uL (0.00-0.03); Imm Gran Pct Auto 0.3 % (0.0-0.4); Lymphocytes Absolute Auto 5.9 X10*3/uL (1.2-4.9); Lymphocytes Percent Auto 54.5 % (20-40); MANUAL DIFF FLAG SCAN; Mean Corpuscular HGB Conc 33.1 g/dl (31.0-35.0); Mean Corpuscular Hemoglobin 30.3 pg (27.0-33.0); Mean Corpuscular Volume 91.6 fL (80.0-98.0); Mean Platelet Volume 10.7 fL (9.4-12.3); Monocytes Absolute Auto 0.8 X10*3/uL (0.1-1.2); Monocytes Percent Auto 7.6 % (2-11); Neutrophils Absolute Auto 3.3 x10*3/uL (2.0-8.3); Neutrophils Percent Auto 30.4 % (45-73); Platelet Count 223 X10*3/uL (160-400); Red Blood Count 4.52 X10*6/uL (4.20-5.50); Red Cell Distribution Width 14.1 % (11.0-16.0); SCAN SMEAR FLAG 1; White Blood Count 10.8 X10*3/uL (4.8-10.8)
[2023-04-02 14:24] LABS: SLIDE REVIEW VERIFIED
== END 2023-04-02 13:16 | disposition home or self-care (01) ==
LOC: HO.LAB 13:15
PROVIDERS: PCP Internal Medicine; Visit Provider Internal Medicine Pulmonary Disease
DX: Z91.09 Other allergy status, other than to drugs and biological substances (principal)
CPT/HCPCS: 36415; 85025

== ENCOUNTER → 2023-04-03 13:55 | Outpatient (BNVA) | payer MEDICARE, SELFPAY | PROVIDERS: PCP Internal Medicine; Visit Provider Internal Medicine Pulmonary Disease | DX: J44.9 Chronic obstructive pulmonary disease, unspecified (principal); R05.3 Chronic cough; R60.0 Localized edema; Z91.09 Other allergy status, other than to drugs and biological substances; Z79.899 Other long term (current) drug therapy | CPT/HCPCS: 99212 ==

== ENCOUNTER 2023-06-27 14:18 | Outpatient (AMB) | payer MEDICARE, SELFPAY ==
[2023-06-27 14:20] VITALS: BP 138/82; PULSE 73; O2SAT 98; BMI 37.8
--- NOTE | 2023-06-27 14:20 | A.OFFVIS_ITS ---
Intake Vital Signs 06/27/23 14:20 Height 5 ft 6 in Weight 234 lb BMI 37.8 BP 138/82 Blood Pressure Location Lt brachial Position Sitting Pulse 73 Pulse Source Pulse Oximeter Pulse Oximetry (%) 98 Oxygen Delivery Method Room Air Intake Visit Reasons: asthma Allergies levofloxacin Adverse Reaction (Mild, Verified 06/27/23 14:25) joint pain HPI asthma HPI Details 67-year-old lady, former 30+ pack-year smoker, quit 2011, followed for underlying asthma/COPD overlap syndrome and pulmonary component dyspnea on exertion.? Patient has completed her pulmonary function test and CT chest.? She continues on Anoro.? Patient does complain of chronic ongoing cough productive of yellowish sputum and environmental allergies.? Unfortunately, Fasenra was denied by her insurance.? After the last office visit she was started on Lasix with improvement in her lower extremity edema and dyspnea exertion. She continues to complain of significant allergic component to her symptoms. [facility] Medical History (Updated 04/03/23 @ 14:12 by Andrew Spivey MD) Annual physical exam Anxiety Asthma Chest pain Colon cancer screening COPD (chronic obstructive pulmonary disease) Coronary artery disease Cough COVID-19 virus infection Dyspnea on exertion Family history of colon cancer Hypercholesterolemia Hypertension Obesity (BMI 30-39.9) Rectocele Tubular adenoma of colon Type 2 diabetes mellitus with hyperglycemia Vaginal prolapse Vitamin D deficiency Surgical History History of arthroscopy of left knee History of knee replacement procedure of left knee History of orthopedic surgery History of vaginal hysterectomy Family History Father Esophageal cancer Mother Hypertension CVD (cardiovascular disease) Daughter Cancer Social History Housing: House (rented) Alcohol intake: never Patient Tobacco Use Status: Former Tobacco user Quit Date: 9 years ago Tobacco use type: Cigarette Years Smoked: quit 2010 e-Cigarette/Vaping Use: Never Used Second Hand Smoke Exposure: No service: No Current occupational status: retired Cognitive needs: No Hearing needs: No Vision needs: Yes Review of Systems Const Denies daytime sleepiness, Denies excessive sweating, Denies fatigue, Denies fever(s), Denies lethargy, Denies malaise, Denies night sweats, Denies snoring and Denies weight loss Eyes Denies blurry vision and Denies itchy eyes ENT Denies nasal congestion, Denies post nasal drip, Denies sinus pain, Denies sinus pressure and Denies other ( Thrush) Card Denies chest pain, Denies pedal edema, Denies dyspnea, Reports dyspnea on exertion, Denies orthopnea and Denies paroxysmal nocturnal dyspnea Resp Denies cough, Denies hemoptysis, Denies excessive phlegm production, Denies dyspnea, Reports dyspnea on exertion, Denies snoring and Denies wheezing GI Denies abdominal pain and Denies heartburn Musc Denies myalgias, Denies arthralgias and Denies joint swelling Skin/Breast Denies rash Neuro Denies memory loss and Denies seizure-like activity Psych Denies abnormal sleep pattern, Denies anxiety and Denies memory loss Endo Denies excessive sweating, Denies fatigue and Denies heat intolerance Reece/Lymph Denies easy bruising Aller/Immun Denies itchy eyes, Denies seasonal rhinorrhea and Denies wheezing Physical Exam Vital Signs: Last Vital Signs Pulse 73 06/27/23 14:20 BP 138/82 06/27/23 14:20 Pulse Ox 98 06/27/23 14:20 Oxygen Delivery Method Room Air 06/27/23 14:20 BMI result Body Mass Index 37.8 Const General: no acute distress and alert Nutritional Appearance: obese Orientation/consciousness: Other orientation findings ( oriented) HEENT Head: Yes atraumatic Eyes General: appearance normal, both eyes and all related structures Sclerae: sclerae normal EOM: EOMs intact bilaterally Neck Neck: Yes supple Lymphatic: no lymphadenopathy noted Resp Effort & Inspection: normal respiratory effort and no use of accessory muscles Auscultation: clear to auscultation bilaterally Cardio Rate: regular rate Rhythm: regular rhythm Heart sounds: no gallops, no murmurs and no rubs Skin General skin exam: other ( warm) Extrem General: No clubbing, No cyanosis and No edema Assessment & Plan Assessment & Plan (1) Asthma-COPD overlap syndrome: Code(s): J44.9 - Chronic obstructive pulmonary disease, unspecified Plan: Suboptimal control is immunologic therapy was denied. Continue on Anoro and albuterol MDI. Will add prednisone taper. (2) Environmental allergies: Code(s): Z91.09 - Other allergy status, other than to drugs and biological substances Plan: Suboptimal control as immunologic therapy denied by patient's insurance. Continue Singulair. Medications: New prednisone Take four tabs daily for 5 days, then go down by 1 tab every 5 days. 10 mg PO DIRECTED 50 tabs 0RF Coding Level of Care Code Est Pt Level 4 (34934) Diagnoses Asthma-COPD overlap syndrome J44.9 Environmental allergies Z91.09
== END 2023-06-27 14:43 | disposition home or self-care (01) ==
PROVIDERS: PCP Internal Medicine; Visit Provider Internal Medicine Pulmonary Disease
DX: J44.9 Chronic obstructive pulmonary disease, unspecified (principal); Z91.09 Other allergy status, other than to drugs and biological substances
CPT/HCPCS: 99214

== ENCOUNTER → 2023-06-27 14:18 | Outpatient (BNVA) | payer MEDICARE, SELFPAY | PROVIDERS: PCP Internal Medicine; Visit Provider Internal Medicine Pulmonary Disease | DX: J44.9 Chronic obstructive pulmonary disease, unspecified (principal); Z91.09 Other allergy status, other than to drugs and biological substances | CPT/HCPCS: 99212 ==

== ENCOUNTER 2023-07-01 10:16 | Outpatient (REF) | payer MEDICARE, SELFPAY ==
[2023-07-01 11:26] LABS: Estimated Average Glucose 131 mg/dL; Hemoglobin A1C 149.1018 umol/L; Hemoglobin A1c % 6.2 % (<6.0)
[2023-07-01 12:25] LABS: Alanine Aminotransferase 34 U/L (0-31); Alkaline Phosphatase 54 U/L (39-117); Anion Gap 12 (12-20); Aspartate Amino Transferase 32 U/L (5-31); Bilirubin Total 0.4 mg/dL (0.0-1.0); Blood Urea Nitrogen 17 mg/dL (9-16); Calcium 9.3 mg/dL (8.4-10.2); Carbon Dioxide 27 mmol/L (22-29); Chloride 108 mmol/L (96-108); Cholesterol 151 mg/dL (<200); Estimated Glomerular Filt Rate > 60; Free T4 (Free Thyroxine) 0.84 ng/dL (0.71-1.85); Glucose Random 88 mg/dL (60-115); HDL Cholesterol 48 mg/dL (>40); LDL Cholesterol Calculated 72 mg/dL (<100); Potassium 3.7 mmol/L (3.3-5.1); Sodium 143 mmol/L (135-145); Thyroid Stimulating Hormone 1.46 uIU/mL (0.32-4.0); Total Protein 7.6 g/dL (6.5-8.0); Triglycerides 156 mg/dL (<150); Vitamin D 25-OH Total 47.1 ng/mL (>30)
[2023-07-01 12:54] LABS: Folate 6.8 ng/mL (> or = 4.0); Vitamin B12 316 pg/mL (200-900)
[2023-07-01 13:48] LABS: Creatinine Urine 86.59 mg/dL; Microalbumin Urine < 5.0 mg/L
== END 2023-07-01 10:17 | disposition home or self-care (01) ==
LOC: HO.LAB 10:16
PROVIDERS: PCP Internal Medicine; Visit Provider Internal Medicine
DX: E11.65 Type 2 diabetes mellitus with hyperglycemia (principal); E78.00 Pure hypercholesterolemia, unspecified; M81.0 Age-related osteoporosis without current pathological fracture; E55.9 Vitamin D deficiency, unspecified
CPT/HCPCS: 36415; 80053; 80061; 82043; 82306; 82607; 82746; 83036; 84439; 84443

== ENCOUNTER 2023-07-03 13:58 | Outpatient (AMB) | payer MEDICARE, SELFPAY ==
[2023-07-03 13:59] VITALS: BP 130/70; PULSE 72; O2SAT 98; BMI 37.7
--- NOTE | 2023-07-03 13:59 | A.OFFPC_ITS ---
Vital Signs 07/03/23 13:59 Height 5 ft 6 in Weight 233 lb 8 oz BMI 37.7 BP 130/70 Blood Pressure Location Lt brachial Position Sitting Pulse 72 Pulse Source Pulse Oximeter Pulse Oximetry (%) 98 Oxygen Delivery Method Room Air Intake Visit Reasons: Diabetes mellitus Intake Note: Patient is here to follow up on DMII. Auto Wrecker Required: No Accompanied by: Self / Same As Patient Allergies levofloxacin Adverse Reaction (Mild, Verified 07/03/23 14:05) joint pain Tobacco use date assessed: 12/14/22 Fall risk assessment: No Falls in past year Last assessed Fall Risk: 07/03/23 Dental Screening Dental Screen Date: 07/03/23 Did you have a dental visit in the last 12 months?: Yes Did you have a dental problem in the last 6 months where you did not have access to dental care?: No Was dental information given to patient?: Patient has dentist HPI Diabetes mellitus HPI Details 67-year-old obese female with coronary artery disease hypertension hypercholesterolemia COPD diabetes mellitus in generalized anxiety disorder last seen in March 2023 for physical exam patient has been advised blood work as well as bone density. Patient is coming in for follow-up. Mammograms up-to-date colonoscopy is up-to-date. Patient has seen Pulmonary and was prescribed prednisone for 5 days. Fasenra denied by insurance. Patient had cervical CT showing cervical spondylosis had a CT scan of the head also negative results meanwhile 06/03/2023 had an x-ray showing comminuted impaction fracture of the proximal humerus Right. fall 06/02 2023 - fall - twisted R foot and fell on the R shoulder - no sycope, no chest pain [facility] Medical History (Updated 07/03/23 @ 14:27 by Terence Cao MD) Annual physical exam Anxiety Asthma Chest pain Colon cancer screening COPD (chronic obstructive pulmonary disease) Coronary artery disease Cough COVID-19 virus infection Dyspnea on exertion Family history of colon cancer Hypercholesterolemia Hypertension Obesity (BMI 30-39.9) Rectocele Tubular adenoma of colon Type 2 diabetes mellitus with hyperglycemia Vaginal prolapse Vitamin D deficiency Surgical History History of arthroscopy of left knee History of knee replacement procedure of left knee History of orthopedic surgery History of vaginal hysterectomy Family History Father Esophageal cancer Mother Hypertension CVD (cardiovascular disease) Daughter Cancer Social History Housing: House (rented) Alcohol intake: never Patient Tobacco Use Status: Former Tobacco user Quit Date: 9 years ago Tobacco use type: Cigarette Years Smoked: quit 2010 e-Cigarette/Vaping Use: Never Used Second Hand Smoke Exposure: No service: No Current occupational status: retired Cognitive needs: No Hearing needs: No Vision needs: Yes Questionnaire Thrive Questionnaire Date Thrive assessed: 12/14/22 RACHEL-7 AMB Questionnaire RACHEL-7 Date RACHEL - 7 assessed: 12/14/22 Source: Developed by Drs. Jae Gooden, Darlene Giang, Glen Ang and colleagues, with an educational demetri from [employer]. Physical exam (Primary Care) Vital Signs: Last Vital Signs Pulse 72 07/03/23 13:59 BP 130/70 07/03/23 13:59 Pulse Ox 98 07/03/23 13:59 Oxygen Delivery Method Room Air 07/03/23 13:59 BMI result Body Mass Index 37.7 Tobacco/Smoking Status: Tobacco use Status Tobacco use date assessed 12/14/22 07/03/23 14:01 Patient Tobacco Use Status Former Tobacco user 07/03/23 14:01 Tobacco use type Cigarette 07/03/23 14:01 e-Cigarette/Vaping Use Never Used 07/03/23 14:01 Thrive Assessment: Date of Thrive Assessment Date Thrive assessed 12/14/22 07/03/23 14:01 Const General: alert; No acute distress Eyes Conjunctivae: conjunctivae normal Resp Auscultation: clear to auscultation bilaterally Cardio Rate: regular rate Rhythm: regular rhythm GI Inspection: Yes normal to inspection Extrem General: Yes normal to inspection and No edema Assessment and Plan Assessment & Plan (1) Osteopenia: Comment: 2017 Code(s): M85.80 - Other specified disorders of bone density and structure, unspecified site Plan: Reminded about bone density (2) Type 2 diabetes mellitus with hyperglycemia: Comment: Dr. Mitchell Code(s): E11.65 - Type 2 diabetes mellitus with hyperglycemia Plan: Decrease the amount of carbohydrate intake, pasta, bread, rice and potatoes are all sugar and that is aside from all the sweet stuff, remember that fruits are good but they are Sweet also. Hemoglobin A1c goal of less than 7.0 patient is on metformin 500 mg twice a day (3) Obesity (BMI 30-39.9): Code(s): E66.9 - Obesity, unspecified Plan: Diet and exercise (4) COPD (chronic obstructive pulmonary disease): Code(s): J44.9 - Chronic obstructive pulmonary disease, unspecified Qualifiers: COPD type: emphysema Emphysema type: unspecified Qualified Code(s): J43.9 - Emphysema, unspecified Plan: Continue with inhaler patient follows up with Pulmonary (5) Hypercholesterolemia: Code(s): E78.00 - Pure hypercholesterolemia, unspecified Plan: Avoid fried foods, chicken skin, eggs, butter margarine, pastries and meat. Be it pork or beef they have a lot of cholesterol LDL goal of less than June showing 72 (6) Coronary artery disease: Comment: 2012 stent placement bare metal stent,Dr. Mandy Martinez Sees Dr Machado [phone] Code(s): I25.10 - Atherosclerotic heart disease of [place] coronary artery without angina pectoris Qualifiers: Coronary Disease-Associated Artery/Lesion type: [place] artery [place] vs. transplanted heart: [place] heart Associated angina: without angina Qualified Code(s): I25.10 - Atherosclerotic heart disease of [place] coronary artery without angina pectoris Plan: Control the cholesterol, weight, blood pressure, diabetes (7) Hypertension: Code(s): I10 - Essential (primary) hypertension Qualifiers: Hypertension type: essential hypertension Qualified Code(s): I10 - Essential (primary) hypertension Plan: Continue with blood pressure medication. Decrease salt intake and exercise patient takes metoprolol 25 mg once a day lisinopril 5 mg once a day amlodipine 5 mg once a day (8) Right humeral fracture: Comment: 05/2023 R proximal humeral comminuted fracture Code(s): S42.301A - Unspecified fracture of shaft of humerus, right arm, initial encounter for closed fracture Plan: PAtient has seen [facility] and doing better Coding Level of Care Code Est Pt Level 4 (51416) Diagnoses Osteopenia M85.80 Type 2 diabetes mellitus with hyperglycemia E11.65 Obesity (BMI 30-39.9) E66.9 COPD (chronic obstructive pulmonary disease) J43.9 COPD type: emphysema Emphysema type: unspecified Hypercholesterolemia E78.00 Coronary artery disease I25.10 Coronary Disease-Associated Artery/Lesion type: [place] artery [place] vs. transplanted heart: [place] heart Associated angina: without angina Hypertension I10 Hypertension type: essential hypertension Right humeral fracture S42.301A
== END 2023-07-03 14:43 | disposition home or self-care (01) ==
PROVIDERS: Visit Provider Internal Medicine
DX: I10 Essential (primary) hypertension (principal); E11.65 Type 2 diabetes mellitus with hyperglycemia; E66.9 Obesity, unspecified; Z68.37 Body mass index [BMI] 37.0-37.9, adult; J43.9 Emphysema, unspecified; M85.80 Other specified disorders of bone density and structure, unspecified site; E78.00 Pure hypercholesterolemia, unspecified; I25.10 Atherosclerotic heart disease of native coronary artery without angina pectoris; S42.301A Unspecified fracture of shaft of humerus, right arm, initial encounter for closed fracture
CPT/HCPCS: 99214

== ENCOUNTER 2023-10-15 13:57 | Outpatient (AMB) | payer MEDICARE, SELFPAY ==
[2023-10-15 13:58] VITALS: BP 142/64; PULSE 91; O2SAT 97; BMI 37.9
--- NOTE | 2023-10-15 13:58 | MHC.OFFVIS ---
Intake Vital Signs 10/15/23 13:58 Height 5 ft 6 in Weight 234 lb 12.677 oz BMI 37.9 BP 142/64 H Blood Pressure Location Lt brachial Position Sitting Pulse 91 Pulse Source Doppler Pulse Oximetry (%) 97 Oxygen Delivery Method Room Air Intake Visit Reasons: asthma HPI asthma HPI Details 68-year-old lady, former 30+ pack-year smoker, quit 2011, followed for underlying asthma/COPD overlap syndrome and pulmonary component dyspnea on exertion.? 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 She also continues on Singulair.? Patient does complain of chronic ongoing nonproductive cough.? Unfortunately, Fasenra was denied by her insurance.?She continues to complain of significant allergic component to her symptoms. [facility] Medical History (Updated 07/03/23 @ 14:27 by Terence Cao MD) Dyspnea on exertion Annual physical exam Family history of colon cancer Tubular adenoma of colon Chest pain Asthma Colon cancer screening Cough COVID-19 virus infection Vitamin D deficiency Rectocele Vaginal prolapse Obesity (BMI 30-39.9) COPD (chronic obstructive pulmonary disease) Anxiety Hypercholesterolemia Coronary artery disease Hypertension Type 2 diabetes mellitus with hyperglycemia Surgical History History of arthroscopy of left knee History of knee replacement procedure of left knee History of orthopedic surgery History of vaginal hysterectomy Family History Father Esophageal cancer Mother Hypertension CVD (cardiovascular disease) Daughter Cancer Social History (Reviewed 10/15/23 @ 14:03 by Mohini Ramos [facility]) Housing: House (rented) Alcohol intake: never Patient Tobacco Use Status: Former Tobacco user Quit Date: 9 years ago Tobacco use type: Cigarette Years Smoked: quit 2010 e-Cigarette/Vaping Use: Never Used Second Hand Smoke Exposure: No service: No Current occupational status: retired Cognitive needs: No Hearing needs: No Vision needs: Yes Review of Systems Const Denies daytime sleepiness, Denies excessive sweating, Denies fatigue, Denies fever(s), Denies lethargy, Denies malaise, Denies night sweats, Denies snoring and Denies weight loss Eyes Denies blurry vision and Denies itchy eyes ENT Denies nasal congestion, Denies post nasal drip, Denies sinus pain, Denies sinus pressure and Denies other ( Thrush) Card Denies chest pain, Denies pedal edema, Denies dyspnea, Denies orthopnea and Denies paroxysmal nocturnal dyspnea Resp Reports cough, Denies hemoptysis, Denies excessive phlegm production, Denies dyspnea, Denies snoring and Denies wheezing GI Denies abdominal pain and Denies heartburn Musc Denies myalgias, Denies arthralgias and Denies joint swelling Skin/Breast Denies rash Neuro Denies memory loss and Denies seizure-like activity Psych Denies abnormal sleep pattern, Denies anxiety and Denies memory loss Endo Denies excessive sweating, Denies fatigue and Denies heat intolerance Reece/Lymph Denies easy bruising Aller/Immun Denies itchy eyes, Denies seasonal rhinorrhea and Denies wheezing Physical Exam Vital Signs: Last Vital Signs Pulse 91 10/15/23 13:58 BP 142/64 H 10/15/23 13:58 Pulse Ox 97 10/15/23 13:58 Oxygen Delivery Method Room Air 10/15/23 13:58 BMI result Body Mass Index 37.9 Const General: no acute distress and alert Nutritional Appearance: not obese Orientation/consciousness: Other orientation findings ( oriented) HEENT Head: Yes atraumatic Eyes General: appearance normal, both eyes and all related structures Sclerae: sclerae normal EOM: EOMs intact bilaterally Neck Neck: Yes supple Lymphatic: no lymphadenopathy noted Resp Effort & Inspection: normal respiratory effort and no use of accessory muscles Auscultation: clear to auscultation bilaterally Cardio Rate: regular rate Rhythm: regular rhythm Heart sounds: no gallops, no murmurs and no rubs Skin General skin exam: other ( warm) Extrem General: No clubbing, No cyanosis and No edema Assessment & Plan Assessment & Plan (1) Asthma-COPD overlap syndrome: Code(s): J44.9 - Chronic obstructive pulmonary disease, unspecified Plan: Baseline controlled on trilogy and albuterol MDI. Continue current regimen. Allergic not controlled patient's insurance denied Fasenra. (2) Environmental allergies: Code(s): Z91.09 - Other allergy status, other than to drugs and biological substances Plan: Suboptimal control. Continue Singulair. Fasenra denied. (3) Chronic cough: Code(s): R05.3 - Chronic cough Plan: Some improvement on trilogy. Continue current regimen. Will at cough syrup for symptomatic relief. Coding Level of Care Code Est Pt Level 4 (04260) Diagnoses Asthma-COPD overlap syndrome J44.9 Environmental allergies Z91.09 Chronic cough R05.3
== END 2023-10-15 14:16 | disposition home or self-care (01) ==
PROVIDERS: PCP Internal Medicine; Visit Provider Internal Medicine Pulmonary Disease
DX: J44.9 Chronic obstructive pulmonary disease, unspecified (principal); Z91.09 Other allergy status, other than to drugs and biological substances; R05.3 Chronic cough
CPT/HCPCS: 99214

== ENCOUNTER → 2023-10-15 13:57 | Outpatient (BNVA) | payer MEDICARE, SELFPAY | PROVIDERS: PCP Internal Medicine; Visit Provider Internal Medicine Pulmonary Disease | DX: J44.9 Chronic obstructive pulmonary disease, unspecified (principal); R05.3 Chronic cough; Z91.09 Other allergy status, other than to drugs and biological substances | CPT/HCPCS: 99212 ==

== ENCOUNTER 2024-01-09 11:47 | Outpatient (AMB) | payer MEDICARE, SELFPAY ==
[2024-01-09 11:50] VITALS: BP 138/86; PULSE 76; O2SAT 97; BMI 37.8
--- NOTE | 2024-01-09 11:50 | A.OFFPC_ITS ---
Vital Signs 01/09/24 11:50 Height 5 ft 6 in Weight 234 lb BMI 37.8 BP 138/86 Blood Pressure Location Lt brachial Position Sitting Pulse 76 Pulse Source Pulse Oximeter Pulse Oximetry (%) 97 Oxygen Delivery Method Room Air Intake Visit Reasons: dm Intake Note: Patient is here to follow up on DM Chancery Clerk Required: No Allergies No Known Allergies Allergy (Verified 01/09/24 11:50) Tobacco use date assessed: 01/09/24 Fall risk assessment: No Falls in past year Last assessed Fall Risk: 01/09/24 Dental Screening Dental Screen Date: 01/09/24 HPI dm HPI Details 68-year-old obese female with controlled diabetes mellitus COPD hypercholesterolemia coronary artery disease hypertension last seen in June 2023 patient is here for follow-up. Mammogram is up-to-date February 2023 bone density is due colonoscopy up-to-date April 2021. Patient follows up with Pulmonary October 2023 former 30 pack year smoker quit 2011 asthma COPD overlap syndrome placed on Trelegy and Singulair Fasenra denied by insurance. Patient was seen by the sheet mill supervisor also September 2023 allergic rhinitis asthma COPD chronic cough last blood work was June 2023. Patient is asking for a letter that she is not recommended to go to a laundromat due to the strong smells due to her medical problem. [facility] Medical History (Updated 07/03/23 @ 14:27 by Terence Cao MD) Dyspnea on exertion Annual physical exam Family history of colon cancer Tubular adenoma of colon Chest pain Asthma Colon cancer screening Cough COVID-19 virus infection Vitamin D deficiency Rectocele Vaginal prolapse Obesity (BMI 30-39.9) COPD (chronic obstructive pulmonary disease) Anxiety Hypercholesterolemia Coronary artery disease Hypertension Type 2 diabetes mellitus with hyperglycemia Surgical History History of arthroscopy of left knee History of knee replacement procedure of left knee History of orthopedic surgery History of vaginal hysterectomy Family History Father Esophageal cancer Mother Hypertension CVD (cardiovascular disease) Daughter Cancer Social History Housing: House (rented) Alcohol intake: never Patient Tobacco Use Status: Former Tobacco user Quit Date: 9 years ago Tobacco use type: Cigarette Years Smoked: quit 2010 e-Cigarette/Vaping Use: Never Used Second Hand Smoke Exposure: No service: No Current occupational status: retired Cognitive needs: No Hearing needs: No Vision needs: Yes Questionnaire Thrive Questionnaire Date Thrive assessed: 01/09/24 I am a: Patient What is your living situation today?: I have a steady place to live Within the past 12 months, did the food you bought not last and you didn't have the money to get more?: Never true Within the past 12 months, did you worry whether your food would run out before you got money to buy more?: Never true Do you have trouble paying for medicines?: No Do you have trouble getting transportation to medical appointments?: No Do you have trouble paying your heating and electricity bill?: No Do you have trouble taking care of your child, family member or friend?: No Do you have trouble with day-to-day activities such as bathing, preparing meals, shopping, managing finances, etc.?: No Are you currently unemployed and looking for a job?: No Are you interested in more education?: No Please select the resources that you would like help with: None THRIVE Score: 0 AUDIT C Alcohol Use Questionnaire (AUDIT-C) 1. How often do you have a drink containing alcohol?: Monthly or less 2. How many drinks containing alcohol do you have on a typical day when you are drinking?: 1 or 2 3. How often do you have six or more drinks on one occasion?: Never Total Score: 1 RACHEL-7 AMB Questionnaire RACHEL-7 Date RACHEL - 7 assessed: 01/09/24 Source: Developed by Drs. Jae Gooden, Darlene Giang, Glen Ang and colleagues, with an educational demetri from [employer]. Physical exam (Primary Care) Vital Signs: Last Vital Signs Pulse 76 01/09/24 11:50 BP 138/86 01/09/24 11:50 Pulse Ox 97 01/09/24 11:50 Oxygen Delivery Method Room Air 01/09/24 11:50 BMI result Body Mass Index 37.8 Tobacco/Smoking Status: Tobacco use Status Tobacco use date assessed 01/09/24 01/09/24 11:52 Patient Tobacco Use Status Former Tobacco user 01/09/24 11:52 Tobacco use type Cigarette 01/09/24 11:52 e-Cigarette/Vaping Use Never Used 01/09/24 11:52 Thrive Assessment: Date of Thrive Assessment Date Thrive assessed 01/09/24 01/09/24 11:52 Const General: alert; No acute distress Eyes Conjunctivae: conjunctivae normal Resp Auscultation: clear to auscultation bilaterally Cardio Rate: regular rate Rhythm: regular rhythm GI Inspection: Yes normal to inspection Extrem General: Yes normal to inspection and No edema Results AMB Hemoglobin A1c AMB Hemoglobin A1c 6.3 % Last Edit by COLLIN Ruelas on 01/09/24 12:02 Results Reviewed Results Reviewed: Laboratory Last Values Hgb A1c (Clinic) 6.3 % (4.0-6.0) H 01/09/24 11:13 Assessment and Plan Assessment & Plan (1) Type 2 diabetes mellitus with hyperglycemia: Comment: Dr. Mitchell Code(s): E11.65 - Type 2 diabetes mellitus with hyperglycemia Plan: Decrease the amount of carbohydrate intake, pasta, bread, rice and potatoes are all sugar and that is aside from all the sweet stuff, remember that fruits are good but they are Sweet also. Hemoglobin A1c goal of less than 7.0 patient is at goal on metformin 500 mg twice a day (2) Obesity (BMI 30-39.9): Code(s): E66.9 - Obesity, unspecified Plan: Diet and exercise (3) Coronary artery disease: Comment: [place] 2012 stent placement bare metal stent,Dr. Mandy Martinez Sees Dr Machado [id number] Code(s): I25.10 - Atherosclerotic heart disease of [place] coronary artery without angina pectoris Qualifiers: Coronary Disease-Associated Artery/Lesion type: [place] artery [place] vs. transplanted heart: [place] heart Associated angina: without angina Qualified Code(s): I25.10 - Atherosclerotic heart disease of [place] coronary artery without angina pectoris Plan: Control the cholesterol, weight, blood pressure, diabetes patient is on aspirin 81 mg once a (4) Hypertension: Code(s): I10 - Essential (primary) hypertension Qualifiers: Hypertension type: essential hypertension Qualified Code(s): I10 - Essential (primary) hypertension Plan: Continue with blood pressure medication. Decrease salt intake and exercise patient on amlodipine 5 mg once a day lisinopril 5 mg once a day metoprolol 25 mg once a day (5) Asthma-COPD overlap syndrome: Code(s): J44.9 - Chronic obstructive pulmonary disease, unspecified Plan: Patient has been placed on Trelegy and rescue inhaler plus Singulair (6) Osteopenia: Comment: 2016 Code(s): M85.80 - Other specified disorders of bone density and structure, unspecified site Plan: Discussed about bone density (7) Hypercholesterolemia: Code(s): E78.00 - Pure hypercholesterolemia, unspecified Plan: Avoid fried foods, chicken skin, eggs, butter margarine, pastries and meat. Be it pork or beef they have a lot of cholesterol LDL goal of less than 70 and triglyceride of less than 150. June 2023 last blood work on Zetia and atorvastatin 80 mg once a day (8) Generalized anxiety disorder: Code(s): F41.1 - Generalized anxiety disorder Plan: Continue with therapy (9) Right humeral fracture: Comment: 05/2023 R proximal humeral comminuted fracture Code(s): S42.301A - Unspecified fracture of shaft of humerus, right arm, initial encounter for closed fracture Orders: Orders Complete Blood Count Auto Diff 6 Months E11.65 - Type 2 diabetes mellitus with hyperglycemia Free T4 (Free Thyroxine) 6 Months E11.65 - Type 2 diabetes mellitus with hyperglycemia Thyroid Stimulating Hormone 6 Months E11.65 - Type 2 diabetes mellitus with hyperglycemia Microalbumin, Random (w Creat) 6 Months E11.65 - Type 2 diabetes mellitus with hyperglycemia Creatinine Urine 6 Months E11.65 - Type 2 diabetes mellitus with hyperglycemia Vitamin B12 and Folate 6 Months E11.65 - Type 2 diabetes mellitus with hyperglycemia Vitamin D 25-OH Total 6 Months E11.65 - Type 2 diabetes mellitus with hyperglycemia Hemoglobin A1c 6 Months E11.65 - Type 2 diabetes mellitus with hyperglycemia AMB Hemoglobin A1c Today E11.65 - Type 2 diabetes mellitus with hyperglycemia XR DEXA axial skeleton Today S42.301A - Unspecified fracture of shaft of humerus, right arm, initial encounter for closed fracture Comprehensive Met. Panel 6 Months E11.65 - Type 2 diabetes mellitus with hyperglycemia Lipid Panel 6 Months E11.65 - Type 2 diabetes mellitus with hyperglycemia, E78.00 - Pure hypercholesterolemia, unspecified UA CC w/rflx Micro + Cult 6 Months E11.65 - Type 2 diabetes mellitus with hyperglycemia, R30.0 - Dysuria Medications: New mrnjbmzmkya-kqlhecmfm-trezimdg 200-62.5-25 mcg (Trelegy Ellipta) 1 inh inhalation DAILY 60 ea 0RF J44.9 - Chronic obstructive pulmonary disease, unspecified Refilled atorvastatin 80 mg PO DAILY 90 days 90 tabs 2RF J44.9 - Chronic obstructive pulmonary disease, unspecified Discontinued umeclidinium-vilanterol 62.5-25 mcg/actuation (Anoro Ellipta) Discontinued Reason: Doctor's Order 1 ea PO DAILY 60 ea 0RF Coding Level of Care Code Est Pt Level 4 (58580) Diagnoses Type 2 diabetes mellitus with hyperglycemia E11.65 Obesity (BMI 30-39.9) E66.9 Coronary artery disease involving [place] coronary artery of [place] heart without angina pectoris I25.10 Coronary Disease-Associated Artery/Lesion type: [place] artery [place] vs. transplanted heart: [place] heart Associated angina: without angina Essential hypertension I10 Hypertension type: essential hypertension Asthma-COPD overlap syndrome J44.9 Osteopenia M85.80 Hypercholesterolemia E78.00 Generalized anxiety disorder F41.1 Right humeral fracture S42.301A
== END 2024-01-09 12:46 | disposition home or self-care (01) ==
PROVIDERS: PCP Internal Medicine; Visit Provider Internal Medicine
DX: E11.65 Type 2 diabetes mellitus with hyperglycemia (principal); J44.9 Chronic obstructive pulmonary disease, unspecified; E66.9 Obesity, unspecified; Z23 Encounter for immunization; Z68.37 Body mass index [BMI] 37.0-37.9, adult; I25.10 Atherosclerotic heart disease of native coronary artery without angina pectoris; I10 Essential (primary) hypertension; M85.80 Other specified disorders of bone density and structure, unspecified site; E78.00 Pure hypercholesterolemia, unspecified; F41.1 Generalized anxiety disorder; S42.301A Unspecified fracture of shaft of humerus, right arm, initial encounter for closed fracture
CPT/HCPCS: 83036; 90471; 90677; 99214

== ENCOUNTER 2024-02-13 13:36 | Outpatient (REF) | payer MEDICARE, SELFPAY ==
--- NOTE | ~2024-02-13 | MM_ITS ---
EXAMINATION: BONE DENSITOMETRY CLINICAL INDICATION: Unspecified fracture of shaft of humerus, right arm, initial. COMPARISON: Previous BD dated 02/15/2017 and baseline BD dated 09/15/2007. TECHNIQUE: Using a Elpas DXA System (software version: 13.1) manufactured by [employer], dual-energy x-ray absorptiometry was performed of the lumbar spine and left hip. The images are of good technical quality. Summary results are attached. FINDINGS: LEFT FEMUR, NECK: Current: BMD 0.884 g/cm2, Z-score -0.2, T-score -1.1, osteopenia. Prior: BMD 0.982 g/cm2. Baseline: BMD 1.059 g/cm2. LEFT FEMUR, TOTAL: Current: BMD 0.995 g/cm2, Z-score 0.6, T-score -0.1, normal, 4.3% decrease from previous, 15.5% decrease from baseline (<5% change is not significant). Prior: BMD 1.040 g/cm2. Baseline: BMD 1.177 g/cm2. AP SPINE L1-L4: Current: BMD 1.111 g/cm2, Z-score -0.1, T-score -0.6, normal, 8.1% increase from previous, 5.9% increase from baseline (<5% change is not significant). Prior: BMD 1.028 g/cm2. Baseline: BMD 1.049 g/cm2. IDENTIFIED RISK FACTORS: Early menopause, secondary osteoporosis, history of fracture (adult), hysterectomy. HISTORY OF FRACTURE: Humerus, other, shoulder. MEDICATIONS: Calcium, multivitamin, vitamin D. MM/XR DEXA axial skeleton IMPRESSION: 1. DIAGNOSIS: Osteopenia based on the lowest T-score value of -1.1 in the femoral neck applying World Health Organization criteria. 2. 10-YEAR FRACTURE RISK PREDICTION, FRAX: Major osteoporotic fracture (clinical spine, forearm, hip or shoulder) 7.4%. Hip fracture 0.7%. 3. Treatment Recommendations: NOF guidelines recommend consideration for treatment in postmenopausal women and men age 50 and older presenting with the following: -A hip or vertebral (clinical or morphometric) fracture. -T-score less than or equal to -2.5 at the femoral neck or spine after appropriate evaluation to exclude secondary causes. -Low bone mass at the hip or spine and a 10-year fracture probability by FRAX of greater than or equal to 3% for hip fracture or greater than or equal to 20% for major osteoporotic fracture based on the [place] adapted WHO algorithm. 4. Other Recommendations: All treatment decisions require clinical judgment and consideration of individual patient factors, including patient preferences, comorbidities, previous drug use, risk factors not captured in the FRAX model (e.g. frailty, falls, vitamin D deficiency, increased bone turnover, interval significant decline in bone density) and possible under or overestimation of fracture risk by FRAX. Additional medical evaluation for secondary cause of low bone mineral density may be appropriate. FUTURE SCAN RECOMMENDATION: People with diagnosed cases of osteoporosis or at high risk for fracture should have regular bone mineral density tests. For patients eligible for Medicare, routine testing is allowed once every 2 years. The testing frequency can be increased to one year for patients who have rapidly progressing disease, those who are receiving or discontinuing medical therapy to restore bone mass, or have additional risk factors.
--- NOTE | ~2024-02-13 | MM_ITS ---
EXAMINATION: MM SCREENING DIGITAL BREAST TOMOSYNTHESIS, BILATERAL CLINICAL INFORMATION: Screening. Asymptomatic. COMPARISON: Mammography: This study is compared with prior exams dating back to 2018. TECHNIQUE: Digital breast tomosynthesis is performed in both the craniocaudal and mediolateral oblique views along with computer-aided detection (CAD). Synthesized 2D images are generated from the tomosynthesis. FINDINGS: There are scattered areas of fibroglandular density (ACR BI-RADS breast composition Category b). There are no significant masses, abnormal calcifications, or other abnormalities. Few, coarse, benign calcifications are present in the lateral aspect of the right breast. MM/MM tomosynthesis screening BI IMPRESSION: No mammographic evidence of malignancy. ASSESSMENT: BI-RADS BI-RADS 2 - Benign Findings RECOMMENDATION: Routine annual mammography screening. 1 year F/U This examination should not preclude the clinical evaluation of a suspicious palpable abnormality. This patient's information was entered into a reminder system with a target due date for their next mammogram.
== END 2024-02-13 13:37 | disposition home or self-care (01) ==
LOC: HO.MAMMO 13:36
PROVIDERS: PCP Internal Medicine; Visit Provider Internal Medicine
DX: Z12.31 Encounter for screening mammogram for malignant neoplasm of breast (principal); Z13.820 Encounter for screening for osteoporosis; Z78.0 Asymptomatic menopausal state; M81.0 Age-related osteoporosis without current pathological fracture; M85.80 Other specified disorders of bone density and structure, unspecified site
CPT/HCPCS: 77063; 77067; 77080

== ENCOUNTER → 2024-02-13 14:00 | Outpatient (BNV) | payer MEDICARE, SELFPAY | PROVIDERS: PCP Internal Medicine; Visit Provider Radiology Diagnostic Radiology | DX: Z12.31 Encounter for screening mammogram for malignant neoplasm of breast (principal) | CPT/HCPCS: 77063; 77067 ==

== ENCOUNTER 2024-03-04 13:28 | Outpatient (AMB) | payer MEDICARE, SELFPAY ==
[2024-03-04 13:31] VITALS: BP 122/67; PULSE 87; O2SAT 96; BMI 37.9
--- NOTE | 2024-03-04 13:31 | MHC.OFFVIS ---
Vital Signs 03/04/24 13:31 Height 5 ft 6 in Weight 234 lb 12.677 oz BMI 37.9 BP 122/67 Blood Pressure Location Lt brachial Position Sitting Pulse 87 Pulse Source Doppler Pulse Oximetry (%) 96 Oxygen Delivery Method Room Air Intake Visit Reasons: asthma Allergies No Known Allergies Allergy (Verified 01/09/24 11:50) HPI HPI asthma: Details: 68-year-old lady, former 30+ pack-year smoker, quit 2011, followed for underlying asthma/COPD overlap syndrome and pulmonary component dyspnea on exertion.? She has been using Trelegy and albuterol MDI with suboptimal control of his symptoms. Her Fasenra was denied by insurance. She denies recent acute exacerbations. [facility] Medical History (Updated 01/13/24 @ 12:27 by Terence Cao MD) Dyspnea on exertion Annual physical exam Family history of colon cancer Tubular adenoma of colon Chest pain Asthma Colon cancer screening Cough COVID-19 virus infection Vitamin D deficiency Rectocele Vaginal prolapse Obesity (BMI 30-39.9) COPD (chronic obstructive pulmonary disease) Anxiety Hypercholesterolemia Coronary artery disease Hypertension Type 2 diabetes mellitus with hyperglycemia Surgical History History of arthroscopy of left knee History of knee replacement procedure of left knee History of orthopedic surgery History of vaginal hysterectomy Family History Father Esophageal cancer Mother Hypertension CVD (cardiovascular disease) Daughter Cancer Social History Housing: House (rented) Alcohol intake: never Patient Tobacco Use Status: Former Tobacco user Quit Date: 9 years ago Tobacco use type: Cigarette Years Smoked: quit 2010 e-Cigarette/Vaping Use: Never Used Second Hand Smoke Exposure: No service: No Current occupational status: retired Cognitive needs: No Hearing needs: No Vision needs: Yes Review of Systems Const Denies daytime sleepiness, Denies excessive sweating, Denies fatigue, Denies fever(s), Denies lethargy, Denies malaise, Denies night sweats, Denies snoring and Denies weight loss Eyes Denies blurry vision and Denies itchy eyes ENT Denies nasal congestion, Denies post nasal drip, Denies sinus pain, Denies sinus pressure and Denies other ( Thrush) Card Denies chest pain, Denies pedal edema, Denies dyspnea, Denies orthopnea and Denies paroxysmal nocturnal dyspnea Resp Reports cough, Denies hemoptysis, Denies excessive phlegm production, Denies dyspnea, Denies snoring and Denies wheezing GI Denies abdominal pain and Denies heartburn Musc Denies myalgias, Denies arthralgias and Denies joint swelling Skin/Breast Denies rash Neuro Denies memory loss and Denies seizure-like activity Psych Denies abnormal sleep pattern, Denies anxiety and Denies memory loss Endo Denies excessive sweating, Denies fatigue and Denies heat intolerance Reece/Lymph Denies easy bruising Aller/Immun Denies itchy eyes, Denies seasonal rhinorrhea and Denies wheezing Physical Exam Vital Signs: Last Vital Signs Pulse 87 03/04/24 13:31 BP 122/67 03/04/24 13:31 Pulse Ox 96 03/04/24 13:31 Oxygen Delivery Method Room Air 03/04/24 13:31 BMI result Body Mass Index 37.9 Const General: no acute distress and alert Nutritional Appearance: obese Orientation/consciousness: Other orientation findings ( oriented) HEENT Head: Yes atraumatic Eyes General: appearance normal, both eyes and all related structures Sclerae: sclerae normal EOM: EOMs intact bilaterally Neck Neck: Yes supple Lymphatic: no lymphadenopathy noted Resp Effort & Inspection: normal respiratory effort and no use of accessory muscles Auscultation: clear to auscultation bilaterally Cardio Rate: regular rate Rhythm: regular rhythm Heart sounds: no gallops, no murmurs and no rubs Skin General skin exam: other ( warm) Extrem General: No clubbing, No cyanosis and No edema Assessment & Plan Assessment & Plan (1) Asthma-COPD overlap syndrome: Code(s): J44.9 - Chronic obstructive pulmonary disease, unspecified Category: Medical Plan: Suboptimally controlled on Trelegy and albuterol MDI. Dominic denied, will request [employer] approval. (2) Environmental allergies: Code(s): Z91.09 - Other allergy status, other than to drugs and biological substances Category: Medical Plan: Suboptimal control on Singulair and loratadine. Will request [employer] approval. Coding Level of Care Code Est Pt Level 4 (82036) Diagnoses Asthma-COPD overlap syndrome J44.9 Environmental allergies Z91.09
== END 2024-03-04 13:49 | disposition home or self-care (01) ==
PROVIDERS: PCP Internal Medicine; Visit Provider Internal Medicine Pulmonary Disease
DX: J44.9 Chronic obstructive pulmonary disease, unspecified (principal); Z91.09 Other allergy status, other than to drugs and biological substances
CPT/HCPCS: 99214

== ENCOUNTER → 2024-03-04 13:28 | Outpatient (BNVA) | payer MEDICARE, SELFPAY | PROVIDERS: PCP Internal Medicine; Visit Provider Internal Medicine Pulmonary Disease | DX: J44.9 Chronic obstructive pulmonary disease, unspecified (principal); Z91.09 Other allergy status, other than to drugs and biological substances | CPT/HCPCS: 99212 ==

== ENCOUNTER 2024-07-08 13:40 | Outpatient (AMB) | payer MEDICARE, SELFPAY ==
[2024-07-08 13:49] VITALS: BP 120/64; PULSE 88; O2SAT 95; BMI 38.2
--- NOTE | 2024-07-08 13:49 | A.OFFVIS_ITS ---
Vital Signs 07/08/24 13:49 Height 5 ft 6 in Weight 236 lb 15.951 oz BMI 38.2 BP 120/64 Blood Pressure Location Rt brachial Position Sitting Pulse 88 Pulse Source Doppler Pulse Oximetry (%) 95 Oxygen Delivery Method Room Air Intake Visit Reasons: asthma Process Control Tech Required: Yes Process Control Tech Name: Mohini Sexton Valeria Allergies No Known Allergies Allergy (Verified 07/08/24 13:54) HPI HPI asthma: Details: 68-year-old lady, former 30+ pack-year smoker, quit 2011, followed for underlying asthma/COPD overlap syndrome and pulmonary component dyspnea on exertion.? She has been using Trelegy and albuterol MDI with suboptimal control of her symptoms. Her Fasenra was requested, however initially with denied by her insurance, though after that her insurance has changed and patient would like to try getting Fasenra again. [facility] Medical History (Updated 05/05/24 @ 15:15 by Andrew Spivey MD) Dyspnea on exertion Annual physical exam Family history of colon cancer Tubular adenoma of colon Chest pain Asthma Colon cancer screening Cough COVID-19 virus infection Vitamin D deficiency Rectocele Vaginal prolapse Obesity (BMI 30-39.9) COPD (chronic obstructive pulmonary disease) Anxiety Hypercholesterolemia Coronary artery disease Hypertension Type 2 diabetes mellitus with hyperglycemia Surgical History History of arthroscopy of left knee History of knee replacement procedure of left knee History of orthopedic surgery History of vaginal hysterectomy Family History Father Esophageal cancer Mother Hypertension CVD (cardiovascular disease) Daughter Cancer Social History Housing: House (rented) Alcohol intake: never Patient Tobacco Use Status: Former Tobacco user Tobacco use type: Cigarette Years Smoked: quit 2010 e-Cigarette/Vaping Use: Never Used Second Hand Smoke Exposure: No service: No Current occupational status: retired Cognitive needs: No Hearing needs: No Vision needs: Yes Review of Systems Const Denies daytime sleepiness, Denies excessive sweating, Denies fatigue, Denies fever(s), Denies lethargy, Denies malaise, Denies night sweats, Denies snoring and Denies weight loss Eyes Denies blurry vision and Denies itchy eyes ENT Denies nasal congestion, Denies post nasal drip, Denies sinus pain, Denies sinus pressure and Denies other ( Thrush) Card Denies chest pain, Denies pedal edema, Denies dyspnea, Denies orthopnea and Denies paroxysmal nocturnal dyspnea Resp Denies cough, Denies hemoptysis, Denies excessive phlegm production, Denies dyspnea, Denies snoring and Denies wheezing GI Denies abdominal pain and Denies heartburn Musc Denies myalgias, Denies arthralgias and Denies joint swelling Skin/Breast Denies rash Neuro Denies memory loss and Denies seizure-like activity Psych Denies abnormal sleep pattern, Denies anxiety and Denies memory loss Endo Denies excessive sweating, Denies fatigue and Denies heat intolerance Reece/Lymph Denies easy bruising Aller/Immun Denies itchy eyes, Denies seasonal rhinorrhea and Denies wheezing Physical Exam Vital Signs: Last Vital Signs Pulse 88 07/08/24 13:49 BP 120/64 07/08/24 13:49 Pulse Ox 95 07/08/24 13:49 Oxygen Delivery Method Room Air 07/08/24 13:49 BMI result Body Mass Index 38.2 Const General: no acute distress and alert Nutritional Appearance: obese Orientation/consciousness: Other orientation findings ( oriented) HEENT Head: Yes atraumatic Eyes General: appearance normal, both eyes and all related structures Sclerae: sclerae normal EOM: EOMs intact bilaterally Neck Neck: Yes supple Lymphatic: no lymphadenopathy noted Resp Effort & Inspection: normal respiratory effort and no use of accessory muscles Auscultation: clear to auscultation bilaterally Cardio Rate: regular rate Rhythm: regular rhythm Heart sounds: no gallops, no murmurs and no rubs Skin General skin exam: other ( warm) Extrem General: No clubbing, No cyanosis and No edema Assessment & Plan Assessment & Plan (1) Severe persistent asthma: Code(s): J45.50 - Severe persistent asthma, uncomplicated Category: Medical Plan: Suboptimal control on trilogy and albuterol MDI. Will request Fasenra approval. (2) Environmental allergies: Code(s): Z91.09 - Other allergy status, other than to drugs and biological substances Category: Medical Plan: Suboptimally controlled on loratadine and Singulair. Expect to improve on Fasenra. Orders: Orders XR chest 2V Today J45.50 - Severe persistent asthma, uncomplicated Coding Level of Care Code Est Pt Level 4 (47661) Diagnoses Severe persistent asthma J45.50 Environmental allergies Z91.09
== END 2024-07-08 14:11 | disposition home or self-care (01) ==
PROVIDERS: PCP Internal Medicine; Visit Provider Internal Medicine Pulmonary Disease
DX: J45.50 Severe persistent asthma, uncomplicated (principal); Z91.09 Other allergy status, other than to drugs and biological substances
CPT/HCPCS: 99214

== ENCOUNTER 2024-07-08 13:40 | Outpatient (REF) | payer MEDICARE, SELFPAY ==
--- NOTE | ~2024-07-08 | XR_ITS ---
EXAMINATION: XR CHEST CLINICAL INFORMATION: Severe persistent asthma. COMPARISON: May 25, 2021 TECHNIQUE: 2 views of the chest were obtained. FINDINGS: The lungs are well expanded. No focal consolidation. No pleural effusion. Cardiac silhouette is within normal limits. XR/XR chest 2V IMPRESSION: No acute abnormality. Electronically signed by: Lopez Jon MD 07/09/2024 08:10 AM EDT RP
== END 2024-07-08 13:41 | disposition home or self-care (01) ==
LOC: HO.XRAY 13:40
PROVIDERS: PCP Internal Medicine; Visit Provider Internal Medicine Pulmonary Disease
DX: J45.40 Moderate persistent asthma, uncomplicated (principal); Z91.09 Other allergy status, other than to drugs and biological substances
CPT/HCPCS: 71046; 99212

== ENCOUNTER 2024-07-10 10:15 | Outpatient (REF) | payer MEDICARE, SELFPAY ==
[2024-07-10 10:39] LABS: MANUAL DIFF FLAG NO
[2024-07-10 11:41] LABS: Basophils Absolute Auto 0.1 X10*3/uL (0.0-0.2); Basophils Percent Auto 1.1 % (0-2); Eosinophils Absolute Auto 0.7 X10*3/uL (0.0-0.4); Eosinophils Percent Auto 8.9 % (0-4); Hematocrit 40.3 % (37.0-47.0); Hemoglobin 13.2 g/dl (12.0-16.0); Imm Gran Abs Auto 0.02 X10*3/uL (0.00-0.03); Imm Gran Pct Auto 0.2 % (0.0-0.4); Lymphocytes Absolute Auto 3.3 X10*3/uL (1.2-4.9); Lymphocytes Percent Auto 40.9 % (20-40); Mean Corpuscular HGB Conc 32.8 g/dl (31.0-35.0); Mean Corpuscular Hemoglobin 29.9 pg (27.0-33.0); Mean Corpuscular Volume 91.4 fL (80.0-98.0); Mean Platelet Volume 10.3 fL (9.4-12.3); Monocytes Absolute Auto 0.5 X10*3/uL (0.1-1.2); Monocytes Percent Auto 6.6 % (2-11); Neutrophils Absolute Auto 3.4 x10*3/uL (2.0-8.3); Neutrophils Percent Auto 42.3 % (45-73); Platelet Count 212 X10*3/uL (160-400); Red Blood Count 4.41 X10*6/uL (4.20-5.50); Red Cell Distribution Width 14.7 % (11.0-16.0)
[2024-07-10 11:48] LABS: Appearance Urine Clear; Color Urine Yellow; Glucose Urine UA Negative (Negative); Leukocyte Esterase Urine Small (1+) (Negative); Nitrite Urine Negative (Negative); UMIC TRIGGER UACC YES; Urine Blood Negative (Negative); Urine Ketones Negative (Negative); Urine Protein Negative (Neg-Trace)
[2024-07-10 12:03] LABS: Bacteria Urine None Seen (None Seen); Hyaline Casts Urine 0-2 /LPF (0-2); RBC Urine 0-2 /HPF (0-2); Squamous Epithelial Cell Urine 0-2 /HPF (0-2); UACC Culture Trigger YES; WBC Urine 0-5 /HPF (0-5)
[2024-07-10 12:12] LABS: Creatinine Urine 58.29 mg/dL; Microalbumin Urine < 5.0 mg/L
[2024-07-10 12:34] LABS: Estimated Average Glucose 134 mg/dL; Hemoglobin A1c % 6.3 % (<6.0)
[2024-07-10 12:40] LABS: Alanine Aminotransferase 40 U/L (0-31); Alkaline Phosphatase 56 U/L (39-117); Anion Gap 12 (12-20); Aspartate Amino Transferase 45 U/L (5-31); Bilirubin Total 0.4 mg/dL (0.0-1.0); Blood Urea Nitrogen 14 mg/dL (9-16); Calcium 9.7 mg/dL (8.4-10.2); Carbon Dioxide 26 mmol/L (22-29); Chloride 107 mmol/L (96-108); Cholesterol 137 mg/dL (<200); Estimated Glomerular Filt Rate > 60; Glucose Random 117 mg/dL (60-115); HDL Cholesterol 44 mg/dL (>40); LDL Cholesterol Calculated 68 mg/dL (<100); Potassium 4.3 mmol/L (3.3-5.1); Sodium 141 mmol/L (135-145); Total Protein 7.5 g/dL (6.5-8.0); Triglycerides 128 mg/dL (<150)
[2024-07-10 13:00] LABS: Free T4 (Free Thyroxine) 0.94 ng/dL (0.71-1.85); Vitamin D 25-OH Total 61.8 ng/mL (>30)
[2024-07-10 13:02] LABS: Folate 12.4 ng/mL (> or = 4.0); Vitamin B12 536 pg/mL (200-900)
== END 2024-07-10 10:16 | disposition home or self-care (01) ==
LOC: HO.LAB 10:15
PROVIDERS: PCP Internal Medicine; Visit Provider Internal Medicine
DX: E11.65 Type 2 diabetes mellitus with hyperglycemia (principal); E78.00 Pure hypercholesterolemia, unspecified; R30.0 Dysuria
CPT/HCPCS: 36415; 80053; 80061; 81001; 82043; 82306; 82570; 82607; 82746; 83036; 84439; 84443; 85025; 87086

== ENCOUNTER 2024-10-21 15:20 | Outpatient (AMB) | payer MEDICARE, SELFPAY ==
[2024-10-21 15:23] VITALS: BP 132/77; PULSE 91; O2SAT 96; BMI 38.6
--- NOTE | 2024-10-21 15:23 | MHC.OFFVIS ---
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 Patient has been approved for Fasenra, however she has not started on it. She continues with suboptimal compliance with her trilogy and furosemide with suboptimal control of his symptoms. She is also complain of acute bronchitic exacerbation symptomatic with cough productive of yellowish sputum. FORMERLY [facility], [facility] Medical History (Updated 05/05/24 @ 15:15 by Andrew Spivey MD) Dyspnea on exertion Annual physical exam Family history of colon cancer Tubular adenoma of colon Chest pain Asthma Colon cancer screening Cough COVID-19 virus infection Vitamin D deficiency Rectocele Vaginal prolapse Obesity (BMI 30-39.9) COPD (chronic obstructive pulmonary disease) Anxiety Hypercholesterolemia Coronary artery disease Hypertension Type 2 diabetes mellitus with hyperglycemia Surgical History History of arthroscopy of left knee History of knee replacement procedure of left knee History of orthopedic surgery History of vaginal hysterectomy Family History Father Esophageal cancer Mother Hypertension CVD (cardiovascular disease) Daughter Cancer Social History Housing: House (rented) Alcohol intake: never Patient Tobacco Use Status: Former Tobacco user Tobacco use type: Cigarette Years Smoked: quit 2010 e-Cigarette/Vaping Use: Never Used Second Hand Smoke Exposure: No service: No Current occupational status: retired Cognitive needs: No Hearing needs: No Vision needs: Yes Review of Systems Const Denies daytime sleepiness, Denies excessive sweating, Denies fatigue, Denies fever(s), Denies lethargy, Denies malaise, Denies night sweats, Denies snoring and Denies weight loss Eyes Denies blurry vision and Denies itchy eyes ENT Denies nasal congestion, Denies post nasal drip, Denies sinus pain, Denies sinus pressure and Denies other ( Thrush) Card Denies chest pain, Denies pedal edema, Denies dyspnea, Denies orthopnea and Denies paroxysmal nocturnal dyspnea Resp Reports cough, Denies hemoptysis, Reports excessive phlegm production, Denies dyspnea, Denies snoring and Reports wheezing GI Denies abdominal pain and Denies heartburn Musc Denies myalgias, Denies arthralgias and Denies joint swelling Skin/Breast Denies rash Neuro Denies memory loss and Denies seizure-like activity Psych Denies abnormal sleep pattern, Denies anxiety and Denies memory loss Endo Denies excessive sweating, Denies fatigue and Denies heat intolerance Reece/Lymph Denies easy bruising Aller/Immun Denies itchy eyes, Denies seasonal rhinorrhea and Reports wheezing Physical Exam Vital Signs: Last Vital Signs Pulse 91 10/21/24 15:23 BP 132/77 10/21/24 15:23 Pulse Ox 96 10/21/24 15:23 Oxygen Delivery Method Room Air 10/21/24 15:23 BMI result Body Mass Index 38.6 Const General: no acute distress and alert Nutritional Appearance: obese Orientation/consciousness: Other orientation findings ( oriented) HEENT Head: Yes atraumatic Eyes General: appearance normal, both eyes and all related structures Sclerae: sclerae normal EOM: EOMs intact bilaterally Neck Neck: Yes supple Lymphatic: no lymphadenopathy noted Resp Effort & Inspection: normal respiratory effort and no use of accessory muscles Auscultation: clear to auscultation bilaterally Cardio Rate: regular rate Rhythm: regular rhythm Heart sounds: no gallops, no murmurs and no rubs Skin General skin exam: other ( warm) Extrem General: No clubbing, No cyanosis and No edema Assessment & Plan Assessment & Plan (1) Severe persistent asthma: Code(s): J45.50 - Severe persistent asthma, uncomplicated Category: Medical Plan: Suboptimal control as patient has been approved for Fasenra, however has not started not yet. Continue Trelegy and albuterol MDI. Expect to improve with starting Fasenra. Now also with bronchitic symptoms, will treat with a course of azithromycin. (2) Environmental allergies: Code(s): Z91.09 - Other allergy status, other than to drugs and biological substances Category: Medical Plan: Suboptimal control on loratadine and Singulair, expect to improve after started on Fasenra. (3) Lower extremity edema: Code(s): R60.0 - Localized edema Category: Medical Plan: Suboptimal control as patient is suboptimally compliant with her diuretic regimen. Patient has been advised to be more compliant with her diuretic regimen. Medications: New azithromycin For 250 mg dose pack: take 500 mg today (day 1), then 250 mg for 4 days (days 2-5) PO 6 tabs 0RF Refilled hzvqdqxymql-ohpdpdssw-pbkefbes 200-62.5-25 mcg (Trelegy Ellipta) 1 inh inhalation DAILY 60 ea 6RF J44.9 - Chronic obstructive pulmonary disease, unspecified furosemide 40 mg PO QAM 30 tabs 6RF Coding Level of Care Code Est Pt Level 4 (45874) Complex EM visit Add On G2211 Diagnoses Severe persistent asthma J45.50 Environmental allergies Z91.09 Lower extremity edema R60.0
== END 2024-10-21 15:40 | disposition home or self-care (01) ==
PROVIDERS: PCP Internal Medicine; Visit Provider Internal Medicine Pulmonary Disease
DX: J45.50 Severe persistent asthma, uncomplicated (principal); Z91.09 Other allergy status, other than to drugs and biological substances; R60.0 Localized edema
CPT/HCPCS: 99214; G2211

== ENCOUNTER → 2024-10-21 15:20 | Outpatient (BNVA) | payer MEDICARE, SELFPAY | PROVIDERS: PCP Internal Medicine; Visit Provider Internal Medicine Pulmonary Disease | DX: J45.50 Severe persistent asthma, uncomplicated (principal); Z91.09 Other allergy status, other than to drugs and biological substances; R60.0 Localized edema | CPT/HCPCS: 99212 ==

== ENCOUNTER 2024-11-12 16:05 | Outpatient (AMB) | payer MEDICARE, SELFPAY ==
[2024-11-12 16:15] VITALS: BP 132/82; PULSE 68; O2SAT 92; BMI 38.1
--- NOTE | 2024-11-12 16:15 | MHC.PC.OV ---
Vital Signs 11/12/24 16:15 Height 5 ft 6 in Weight 236 lb BMI 38.1 BP 132/82 Blood Pressure Location Lt brachial Position Sitting Pulse 68 Pulse Source Pulse Oximeter Pulse Oximetry (%) 92 Oxygen Delivery Method Room Air Intake Visit Reasons: Annual PE Allergies No Known Allergies Allergy (Verified 11/12/24 16:15) Medication List - Last Reconciled 11/12/24 by Terence aCo MD albuterol sulfate 90 mcg/actuation 1 puff PO Q4H PRN amlodipine 5 mg PO DAILY aspirin (Adult Aspirin Regimen) 81 mg PO DAILY atorvastatin 80 mg PO DAILY 90 days benralizumab (Fasenra Pen) 30 mg subcut Q8W 28 days blood sugar diagnostic (Modo LabsTouch Verio test strips) As directed 1-2 x daily blood-glucose meter (Mod[employer] LabsTouch Verio Meter) As directed daily cholecalciferol (vitamin D3) 25 mcg PO DAILY clotrimazole 1% 1 appl topical BID 4 weeks codeine-guaifenesin 10-100 mg/5 mL 10 mL PO Q4-6H PRN 30 days ezetimibe 10 mg PO DAILY chyvqgikggd-wiitrvbvu-htzvjspx 200-62.5-25 mcg (Trelegy Ellipta) 1 inh inhalation DAILY furosemide 40 mg PO QAM ibuprofen 600 mg PO Q6H PRN lancets As directed check blood glucose 1-2 x daily lisinopril 5 mg PO DAILY loratadine 10 mg PO DAILY 90 days lorazepam 1 mg PO BEDTIME 90 days metformin 500 mg PO BID metoprolol tartrate 25 mg PO DAILY 90 days montelukast 10 mg PO DAILY omeprazole 40 mg PO DAILY tramadol 50 mg PO Q8H PRN Tobacco use date assessed: 11/12/24 Fall risk assessment: No Falls in past year Last assessed Fall Risk: 11/12/24 Dental Screening Dental Screen Date: 11/12/24 Did you have a dental visit in the last 12 months?: Yes Did you have a dental problem in the last 6 months where you did not have access to dental care?: No Was dental information given to patient?: Patient has dentist HPI Annual PE HPI Details occ dizzy PFSH Medical History (Updated 11/12/24 @ 17:30 by Terence Cao MD) Dyspnea on exertion Annual physical exam Family history of colon cancer Tubular adenoma of colon Chest pain Asthma Colon cancer screening Cough COVID-19 virus infection Vitamin D deficiency Rectocele Vaginal prolapse Obesity (BMI 30-39.9) COPD (chronic obstructive pulmonary disease) Anxiety Hypercholesterolemia Coronary artery disease Hypertension Type 2 diabetes mellitus with hyperglycemia Surgical History History of arthroscopy of left knee History of knee replacement procedure of left knee History of orthopedic surgery History of vaginal hysterectomy Family History Father Esophageal cancer Mother Hypertension CVD (cardiovascular disease) Daughter Cancer Social History Housing: House (rented) Alcohol intake: never Patient Tobacco Use Status: Former Tobacco user Tobacco use type: Cigarette Years Smoked: quit 2010 e-Cigarette/Vaping Use: Never Used Second Hand Smoke Exposure: No service: No Current occupational status: retired Cognitive needs: No Hearing needs: No Vision needs: Yes Questionnaire PHQ-9 Over the last 2 weeks, how often have you been bothered by any of the following problems? 1. Little interest or pleasure in doing things: several days 2. Feeling down, depressed, or hopeless: several days 3. Trouble falling or staying asleep, or sleeping too much: not at all 4. Feeling tired or having little energy: several days 5. Poor appetite or overeating: not at all 6. Feeling bad about yourself - or that you are a failure or have let yourself or your family down: not at all 7. Trouble concentrating on things, such as reading the newspaper or watching television: not at all 8. Moving or speaking so slowly that other people could have noticed. Or the opposite - being so fidgety or restless that you have been moving around a lot more than usual: several days 9. Thoughts that you would be better off or of hurting yourself in some way: not at all Total score: 4 82550 - PHQ-9 Billing: Yes Source: Developed by Drs. Jae Gooden, Darlene Giang, Glen Ang and colleagues, with an educational demetri from [employer]. Thrive Questionnaire Date Thrive assessed: 11/12/24 I am a: Patient What is your living situation today?: I choose not to answer this question Within the past 12 months, did the food you bought not last and you didn't have the money to get more?: Sometimes True Within the past 12 months, did you worry whether your food would run out before you got money to buy more?: Sometimes True Do you have trouble paying for medicines?: I choose not to answer this question Do you have trouble getting transportation to medical appointments?: No Do you have trouble paying your heating and electricity bill?: Yes Do you have trouble taking care of your child, family member or friend?: No Do you have trouble with day-to-day activities such as bathing, preparing meals, shopping, managing finances, etc.?: Yes Are you currently unemployed and looking for a job?: No Are you interested in more education?: I choose not to answer this question Please select the resources that you would like help with: Food and Utilities Currently or been in a relationship where the following occur: Controlled Emotionally THRIVE Score: 4 AUDIT C Alcohol Use Questionnaire (AUDIT-C) 1. How often do you have a drink containing alcohol?: Never 3. How often do you have six or more drinks on one occasion?: Never Total Score: 0 RACHEL-7 AMB Questionnaire RACHEL-7 Date RACHEL - 7 assessed: 11/12/24 Feeling nervous, anxious, or on edge: 1 = Several days Not being able to stop or control worryin = Several days Source: Developed by Drs. Jae Gooden, Darlene Giang, Glen Ang and colleagues, with an educational demetri from [employer]. Review of Systems Const Denies poor appetite and Denies weakness Eyes Denies no additional complaints ENT Reports Normal hearing present, Denies dizziness, Denies nasal congestion, Denies tinnitus and Denies sore throat Card Denies chest pain, Denies syncope, Denies rapid heart rate and Denies dyspnea Resp Denies cough and Denies dyspnea GI Denies change in stool character, Reports constipation, Denies diarrhea, Denies nausea and Denies vomiting Denies urinary frequency, Denies difficulty voiding and Denies dysuria Neuro Reports Normal hearing present, Denies confusion, Denies dizziness, Denies syncope and Denies weakness Psych Denies confusion Physical exam (Primary Care) Vital Signs: Last Vital Signs Pulse 68 11/12/24 16:15 BP 132/82 11/12/24 16:15 Pulse Ox 92 11/12/24 16:15 Oxygen Delivery Method Room Air 11/12/24 16:15 BMI result Body Mass Index 38.1 Tobacco/Smoking Status: Tobacco use Status Tobacco use date assessed 11/12/24 11/12/24 16:16 Patient Tobacco Use Status Former Tobacco user 11/12/24 16:16 Tobacco use type Cigarette 11/12/24 16:16 e-Cigarette/Vaping Use Never Used 11/12/24 16:16 PHQ-9: PHQ-9 Score PHQ-9: Total score 4 11/12/24 17:11 Thrive Assessment: Date of Thrive Assessment Date Thrive assessed 11/12/24 11/12/24 16:16 Currently or been in a relationship where the following occur: Controlled Emotionally Const General: No confusion Orientation/consciousness: No confusion GI Other: declined rectal Other: pedal pulse goodand pin prick sling numbness on the tip Neuro General: No confusion Cranial nerves: Yes Normal hearing present Results AMB Hemoglobin A1c AMB Hemoglobin A1c 5.9 % Last Edit by COLLIN Zapata on 11/12/24 17:28 Coding Level of Care Code Est Pt Prev Care >65y(09294) Diagnoses Annual physical exam Z00.00 Type 2 diabetes mellitus with hyperglycemia E11.65 Obesity (BMI 30-39.9) E66.9 Coronary artery disease involving [place] coronary artery of [place] heart without angina pectoris I25.10 Coronary Disease-Associated Artery/Lesion type: [place] artery [place] vs. transplanted heart: [place] heart Associated angina: without angina Hypercholesterolemia E78.00 Essential hypertension I10 Hypertension type: essential hypertension Severe persistent asthma J45.50 Osteoporosis with pathological fracture M80.00XA Shoulder pain, right M25.511 Hearing deficit H91.90 Peripheral neuropathy G62.9 Additional Codes PHQ-9 - 56063 - PHQ-9 Billing: Yes ([id number]) Assessment & Plan Assessment & Plan (1) Annual physical exam: Code(s): Z00.00 - Encounter for general adult medical examination without abnormal findings Category: Medical Plan: Patient is advised to eat healthy, keep well hydrated, keep active and have adequate sleep. Patient is advised to eat healthy, keep well hydrated, keep active and have adequate sleep. (2) Type 2 diabetes mellitus with hyperglycemia: Comment: Dr. Mitchell Code(s): E11.65 - Type 2 diabetes mellitus with hyperglycemia Category: Medical Plan: Decrease the amount of carbohydrate intake, pasta, bread, rice and potatoes are all sugar and that is aside from all the sweet stuff, remember that fruits are good but they are Sweet also. Hemoglobin A1c goal of less than 7.0. Continue with metformin only. (3) Obesity (BMI 30-39.9): Code(s): E66.9 - Obesity, unspecified Category: Medical Plan: Diet and exercise (4) Coronary artery disease: Comment: MD 2012 stent placement bare metal stent,Dr. Mandy Martinez Sees Dr Machado [id number] Code(s): I25.10 - Atherosclerotic heart disease of [place] coronary artery without angina pectoris Category: Medical Qualifiers: Coronary Disease-Associated Artery/Lesion type: [place] artery [place] vs. transplanted heart: [place] heart Associated angina: without angina Qualified Code(s): I25.10 - Atherosclerotic heart disease of [place] coronary artery without angina pectoris Plan: Control the cholesterol, weight, blood pressure, diabetes continue with aspirin 81 mg once a day (5) Hypercholesterolemia: Code(s): E78.00 - Pure hypercholesterolemia, unspecified Category: Medical Plan: Avoid fried foods, chicken skin, eggs, butter margarine, pastries and meat. Be it pork or beef they have a lot of cholesterol LDL goal of less than 70 and triglyceride of less than 150 patient is taking Zetia 10 mg once a day and atorvastatin 80 mg once a day Bárbara blood work at goal (6) Hypertension: Code(s): I10 - Essential (primary) hypertension Category: Medical Qualifiers: Hypertension type: essential hypertension Qualified Code(s): I10 - Essential (primary) hypertension Plan: Continue with blood pressure medication. Decrease salt intake and exercise continue with amlodipine 5 mg once a day metoprolol 25 mg once a day. Reminded that lisinopril helps with renal protection. Patient will start taking it. (7) Severe persistent asthma: Code(s): J45.50 - Severe persistent asthma, uncomplicated Category: Medical Plan: Patient follows up with Pulmonary and has been placed on Fasenra continuing with montelukast with allergy medication with Trelegy and albuterol. (8) Osteoporosis with pathological fracture: Code(s): M80.00XA - Age-related osteoporosis with current pathological fracture, unspecified site, initial encounter for fracture Category: Medical Plan: Continue with calcium and vitamin-D and keep active (9) Shoulder pain, right: Code(s): M25.511 - Pain in right shoulder Category: Medical Plan: X-ray requested declined physical therapy for now (10) Hearing deficit: Code(s): H91.90 - Unspecified hearing loss, unspecified ear Category: Medical Plan: Hearing test requested (11) Peripheral neuropathy: Code(s): G62.9 - Polyneuropathy, unspecified Category: Medical Plan: Continuing to monitor Orders: Orders AMB Hemoglobin A1c Today Z13.9 - Encounter for screening, unspecified XR shoulder RT min 2V Today M25.511 - Pain in right shoulder Referrals Speech and Hearing Referral H91.90 - Unspecified hearing loss, unspecified ear
== END 2024-11-12 17:36 | disposition home or self-care (01) ==
PROVIDERS: PCP Internal Medicine; Visit Provider Internal Medicine
DX: Z00.00 Encounter for general adult medical examination without abnormal findings (principal); E11.65 Type 2 diabetes mellitus with hyperglycemia; J45.50 Severe persistent asthma, uncomplicated; E66.9 Obesity, unspecified; Z68.38 Body mass index [BMI] 38.0-38.9, adult; I25.10 Atherosclerotic heart disease of native coronary artery without angina pectoris; E78.00 Pure hypercholesterolemia, unspecified; I10 Essential (primary) hypertension; M80.00XA Age-related osteoporosis with current pathological fracture, unspecified site, initial encounter for fracture; M25.511 Pain in right shoulder; G62.9 Polyneuropathy, unspecified; Z23 Encounter for immunization

== ENCOUNTER → 2024-11-12 16:05 | Outpatient (BNVA) | payer MEDICARE, SELFPAY | PROVIDERS: PCP Internal Medicine; Visit Provider Internal Medicine | DX: Z00.00 Encounter for general adult medical examination without abnormal findings (principal); I10 Essential (primary) hypertension; I25.10 Atherosclerotic heart disease of native coronary artery without angina pectoris; E78.00 Pure hypercholesterolemia, unspecified; J45.909 Unspecified asthma, uncomplicated; F41.1 Generalized anxiety disorder; E11.65 Type 2 diabetes mellitus with hyperglycemia; E66.9 Obesity, unspecified; J45.50 Severe persistent asthma, uncomplicated; M25.551 Pain in right hip; M25.511 Pain in right shoulder; H91.90 Unspecified hearing loss, unspecified ear; G62.9 Polyneuropathy, unspecified; Z23 Encounter for immunization; Z68.38 Body mass index [BMI] 38.0-38.9, adult | CPT/HCPCS: 83036; 90471; 90656; 96127; 99397 ==

== ENCOUNTER 2024-11-19 09:58 | Outpatient (AMB) | payer MEDICARE, SELFPAY ==
[2024-11-19 10:04] VITALS: BP 147/92; PULSE 75; O2SAT 96; BMI 38.2
--- NOTE | 2024-11-19 10:04 | MHC.OFFVIS ---
Vital Signs 11/19/24 10:04 Height 5 ft 6 in Weight 237 lb BMI 38.2 BP 147/92 H Blood Pressure Location Lt brachial Position Sitting Pulse 75 Pulse Source Doppler Pulse Oximetry (%) 96 Oxygen Delivery Method Room Air Intake Visit Reasons: Asthma Allergies No Known Allergies Allergy (Verified 11/19/24 10:10) HPI HPI Asthma: Details: 69-year-old lady, former 30+ pack-year smoker, quit 2011, followed for underlying asthma/COPD overlap syndrome and pulmonary component dyspnea on exertion.? Patient has been approved for Fasenra, however she has not started on it. She continues on trilogy and albuterol MDI with suboptimal control of his symptoms. Patient is more compliant with her diuretic therapy now with good control of her orthopnea. [facility] Medical History (Updated 11/19/24 @ 10:27 by Andrew Spivey MD) Dyspnea on exertion Annual physical exam Family history of colon cancer Tubular adenoma of colon Chest pain Asthma Colon cancer screening Cough COVID-19 virus infection Vitamin D deficiency Rectocele Vaginal prolapse Obesity (BMI 30-39.9) COPD (chronic obstructive pulmonary disease) Anxiety Hypercholesterolemia Coronary artery disease Hypertension Type 2 diabetes mellitus with hyperglycemia Surgical History History of arthroscopy of left knee History of knee replacement procedure of left knee History of orthopedic surgery History of vaginal hysterectomy Family History Father Esophageal cancer Mother Hypertension CVD (cardiovascular disease) Daughter Cancer Social History Housing: House (rented) Alcohol intake: never Patient Tobacco Use Status: Former Tobacco user Tobacco use type: Cigarette Years Smoked: quit 2010 e-Cigarette/Vaping Use: Never Used Second Hand Smoke Exposure: No service: No Current occupational status: retired Cognitive needs: No Hearing needs: No Vision needs: Yes Review of Systems Const Denies daytime sleepiness, Denies excessive sweating, Denies fatigue, Denies fever(s), Denies lethargy, Denies malaise, Denies night sweats, Denies snoring and Denies weight loss Eyes Denies blurry vision and Denies itchy eyes ENT Denies nasal congestion, Denies post nasal drip, Denies sinus pain, Denies sinus pressure and Denies other ( Thrush) Card Denies chest pain, Denies pedal edema, Denies dyspnea, Denies orthopnea and Denies paroxysmal nocturnal dyspnea Resp Denies cough, Denies hemoptysis, Denies excessive phlegm production, Denies dyspnea, Denies snoring and Denies wheezing GI Denies abdominal pain and Denies heartburn Musc Denies myalgias, Denies arthralgias and Denies joint swelling Skin/Breast Denies rash Neuro Denies memory loss and Denies seizure-like activity Psych Denies abnormal sleep pattern, Denies anxiety and Denies memory loss Endo Denies excessive sweating, Denies fatigue and Denies heat intolerance Reece/Lymph Denies easy bruising Aller/Immun Denies itchy eyes, Denies seasonal rhinorrhea and Denies wheezing Physical Exam Vital Signs: Last Vital Signs Pulse 75 11/19/24 10:04 BP 147/92 H 11/19/24 10:04 Pulse Ox 96 11/19/24 10:04 Oxygen Delivery Method Room Air 11/19/24 10:04 BMI result Body Mass Index 38.2 Const General: no acute distress and alert Nutritional Appearance: obese Orientation/consciousness: Other orientation findings ( oriented) HEENT Head: Yes atraumatic Eyes General: appearance normal, both eyes and all related structures Sclerae: sclerae normal EOM: EOMs intact bilaterally Neck Neck: Yes supple Lymphatic: no lymphadenopathy noted Resp Effort & Inspection: normal respiratory effort and no use of accessory muscles Auscultation: clear to auscultation bilaterally Cardio Rate: regular rate Rhythm: regular rhythm Heart sounds: no gallops, no murmurs and no rubs Skin General skin exam: other ( warm) Extrem General: No clubbing, No cyanosis and No edema Assessment & Plan Assessment & Plan (1) Severe persistent asthma: Code(s): J45.50 - Severe persistent asthma, uncomplicated Category: Medical Plan: Suboptimal control on Trelegy and albuterol MDI. Expect to improve on Fasenra. (2) Environmental allergies: Code(s): Z91.09 - Other allergy status, other than to drugs and biological substances Category: Medical Plan: Suboptimal control, expect to improve on Fasenra. (3) Orthopnea: Code(s): R06.01 - Orthopnea Category: Medical Plan: Well controlled on current diuretic regimen of Lasix 40 mg daily. Continue current regimen. Coding Level of Care Code Est Pt Level 4 (63345) Complex EM visit Add On G2211 Diagnoses Severe persistent asthma J45.50 Environmental allergies Z91.09 Orthopnea R06.01
== END 2024-11-19 10:21 | disposition home or self-care (01) ==
PROVIDERS: PCP Internal Medicine; Visit Provider Internal Medicine Pulmonary Disease
DX: J45.50 Severe persistent asthma, uncomplicated (principal); Z91.09 Other allergy status, other than to drugs and biological substances; R06.01 Orthopnea
CPT/HCPCS: 99214; G2211

== ENCOUNTER → 2024-11-19 10:36 | Outpatient (BNV) | payer MEDICARE, SELFPAY | PROVIDERS: Absent Provider Internal Medicine; PCP Internal Medicine; Visit Provider Radiology Diagnostic Radiology | DX: M21.821 Other specified acquired deformities of right upper arm (principal) | CPT/HCPCS: 73030 ==

== ENCOUNTER 2025-01-05 12:47 | Outpatient (REF) | payer MEDICARE, SELFPAY ==
--- OUTSIDE RECORDS SUMMARY | 2025-01-05 15:50 | XMS_ITS | Clinical Summary ---
Author Organization [facility] ity Address [address] [place] [address] Care Team Providers Care Director Organizational Name Role Phone Unavailable Primary Care Provider Unavailabl e Social History Tobacco Use Types Packs/Day Years Used Date Smoking Tobacco: Never Assessed Comments Unknown Sex and Gender Information Value Date Recorded Sex Assigned at Not on file Legal Sex Female 2:55 PM EST Gender Identity Not on file Sexual Orientation Not on file Plan of Treatment Health Maintenance Due Date Last Done Comments Breast Cancer Screening 1955 DTaP,Tdap,and Td Vaccines (1 - Tdap) 1972 Pneumococcal Vaccine: 50+ Ye ars (1 of 1 - PCV) 2003 Zoster Vaccines (1 of 2) 2003 Colorectal Cancer Screening: Colonoscopy 10/03/2022 Depression Screening 10/03/2022 Falls Risk Assessment 10/03/2022 Hepatitis C Screening 10/03/2022 Osteoporosis Screening (Bone Density Screening) 10/03/2022 Social Influencers of Health Screening 10/03/2022 COVID-19 Vaccine ( - 2023-2 5 season) 2024 Influenza Vaccine (#1) 2024 RSV Immunization Patients 60 + Years Old (1 - 1-dose 75+ series) 2028 HIB Vaccines Aged Out No longer eligi ble based on patient's age to complete this topic HPV Vaccines Aged Out No longer eligi ble based on patient's age to complete this topic Hepatitis A Vaccines Aged Out No long er eligible based on patient's age to complete this topic Hepatitis B Vaccines Aged Out No long er eligible based on patient's age to complete this topic IPV Vaccines Aged Out No longer eligi ble based on patient's age to complete this topic MMR Vaccines Aged Out No longer eligi ble based on patient's age to complete this topic Meningococcal ACWY Vaccine Aged Out N o longer eligible based on patient's age to complete this topic Meningococcal B Vacine Aged Out No lo nger eligible based on patient's age to complete this topic RSV Immunization Patients Un anali 20 months Aged Out No longer eligible b ased on patient's age to complete this topic Varicella Vaccines Aged Out No longer eligible based on patient's age to complete this topic
== END 2025-01-05 12:48 | disposition home or self-care (01) ==
LOC: HO.SH 12:47
PROVIDERS: Visit Provider Internal Medicine
DX: Z01.118 Encounter for examination of ears and hearing with other abnormal findings (principal); H90.3 Sensorineural hearing loss, bilateral
CPT/HCPCS: 92557; 92567

== ENCOUNTER 2025-01-28 13:08 | Outpatient (AMB) | payer MEDICARE, SELFPAY ==
[2025-01-28 13:12] VITALS: BP 138/64; PULSE 75; O2SAT 95; BMI 37.9
--- NOTE | 2025-01-28 13:12 | MHC.OFFVIS ---
Vital Signs 01/28/25 13:12 Height 5 ft 6 in Weight 234 lb 12.677 oz BMI 37.9 BP 138/64 Blood Pressure Location Lt brachial Position Sitting Pulse 75 Pulse Source Doppler Pulse Oximetry (%) 95 Oxygen Delivery Method Room Air Intake Visit Reasons: Asthma Allergies No Known Allergies Allergy (Verified 01/28/25 13:16) HPI HPI Asthma: Details: 69-year-old lady, former 30+ pack-year smoker, quit 2011, followed for underlying asthma/COPD overlap syndrome and pulmonary component dyspnea on exertion.? Patient has been approved for Fasenra, however she has not started on it yet. She does continue on Trelegy and albuterol MDI with suboptimal control of her symptoms. Her lower extremity edema and orthopnea has been well controlled on current regimen of furosemide 40 mg daily. She denies recent acute exacerbations. [facility] Medical History (Updated 11/19/24 @ 10:27 by Andrew Spivey MD) Dyspnea on exertion Annual physical exam Family history of colon cancer Tubular adenoma of colon Chest pain Asthma Colon cancer screening Cough COVID-19 virus infection Vitamin D deficiency Rectocele Vaginal prolapse Obesity (BMI 30-39.9) COPD (chronic obstructive pulmonary disease) Anxiety Hypercholesterolemia Coronary artery disease Hypertension Type 2 diabetes mellitus with hyperglycemia Surgical History History of arthroscopy of left knee History of knee replacement procedure of left knee History of orthopedic surgery History of vaginal hysterectomy Family History Father Esophageal cancer Mother Hypertension CVD (cardiovascular disease) Daughter Cancer Social History Housing: House (rented) Alcohol intake: never Patient Tobacco Use Status: Former Tobacco user Tobacco use type: Cigarette Years Smoked: quit 2010 e-Cigarette/Vaping Use: Never Used Second Hand Smoke Exposure: No service: No Current occupational status: retired Cognitive needs: No Hearing needs: No Vision needs: Yes Review of Systems Const Denies daytime sleepiness, Denies excessive sweating, Denies fatigue, Denies fever(s), Denies lethargy, Denies malaise, Denies night sweats, Denies snoring and Denies weight loss Eyes Denies blurry vision and Denies itchy eyes ENT Denies nasal congestion, Denies post nasal drip, Denies sinus pain, Denies sinus pressure and Denies other ( Thrush) Card Denies chest pain, Denies pedal edema, Denies dyspnea, Reports dyspnea on exertion, Denies orthopnea and Denies paroxysmal nocturnal dyspnea Resp Denies cough, Denies hemoptysis, Denies excessive phlegm production, Denies dyspnea, Reports dyspnea on exertion, Denies snoring and Denies wheezing GI Denies abdominal pain and Denies heartburn Musc Denies myalgias, Denies arthralgias and Denies joint swelling Skin/Breast Denies rash Neuro Denies memory loss and Denies seizure-like activity Psych Denies abnormal sleep pattern, Denies anxiety and Denies memory loss Endo Denies excessive sweating, Denies fatigue and Denies heat intolerance Reece/Lymph Denies easy bruising Aller/Immun Denies itchy eyes, Denies seasonal rhinorrhea and Denies wheezing Physical Exam Vital Signs: Last Vital Signs Pulse 75 01/28/25 13:12 BP 138/64 01/28/25 13:12 Pulse Ox 95 01/28/25 13:12 Oxygen Delivery Method Room Air 01/28/25 13:12 BMI result Body Mass Index 37.9 Const General: no acute distress and alert Nutritional Appearance: obese Orientation/consciousness: Other orientation findings ( oriented) HEENT Head: Yes atraumatic Eyes General: appearance normal, both eyes and all related structures Sclerae: sclerae normal EOM: EOMs intact bilaterally Neck Neck: Yes supple Lymphatic: no lymphadenopathy noted Resp Effort & Inspection: normal respiratory effort and no use of accessory muscles Auscultation: clear to auscultation bilaterally Cardio Rate: regular rate Rhythm: regular rhythm Heart sounds: no gallops, no murmurs and no rubs Skin General skin exam: other ( warm) Extrem General: No clubbing, No cyanosis and No edema Assessment & Plan Assessment & Plan (1) Severe persistent asthma: Code(s): J45.50 - Severe persistent asthma, uncomplicated Category: Medical Plan: Suboptimally controlled on Trelegy and albuterol MDI. Pending Fasenra approval. (2) Environmental allergies: Code(s): Z91.09 - Other allergy status, other than to drugs and biological substances Category: Medical Plan: Expect to improve on Fasenra. (3) Orthopnea: Code(s): R06.01 - Orthopnea Category: Medical Plan: Well controlled on current regimen of furosemide 40 mg daily. Continue current regimen. Coding Level of Care Code Est Pt Level 4 (79086) Diagnoses Severe persistent asthma J45.50 Environmental allergies Z91.09 Orthopnea R06.01
--- OUTSIDE RECORDS SUMMARY | 2025-01-28 16:14 | XMS_ITS | Clinical Summary ---
Author Organization [facility] ity Address [address] [place] [address] Care Team Providers Care Corner Former Name Role Phone Unavailable Primary Care Provider [...]
== END 2025-01-28 13:44 | disposition home or self-care (01) ==
LOC: HO.HPS 13:08
PROVIDERS: PCP Internal Medicine; Visit Provider Internal Medicine Pulmonary Disease
DX: J45.50 Severe persistent asthma, uncomplicated (principal); Z91.09 Other allergy status, other than to drugs and biological substances; R06.01 Orthopnea
CPT/HCPCS: 99214

== ENCOUNTER → 2025-01-28 13:08 | Outpatient (BNVA) | payer MEDICARE, SELFPAY | PROVIDERS: PCP Internal Medicine; Visit Provider Internal Medicine Pulmonary Disease | DX: J44.89 Other specified chronic obstructive pulmonary disease (principal); J45.50 Severe persistent asthma, uncomplicated; Z91.09 Other allergy status, other than to drugs and biological substances; R06.01 Orthopnea; Z87.891 Personal history of nicotine dependence; Z79.899 Other long term (current) drug therapy | CPT/HCPCS: 99212 ==

== ENCOUNTER 2025-03-24 13:24 | Outpatient (AMB) | payer MEDICARE, SELFPAY ==
[2025-03-24 13:32] VITALS: BP 120/60; PULSE 69; O2SAT 96; BMI 38.6
--- NOTE | 2025-03-24 13:32 | MHC.OFFVIS ---
Vital Signs 03/24/25 13:32 Height 5 ft 6 in Weight 239 lb 3.225 oz BMI 38.6 BP 120/60 Blood Pressure Location Lt brachial Position Sitting Pulse 69 Pulse Source Pulse Oximeter Pulse Oximetry (%) 96 Oxygen Delivery Method Room Air Intake Visit Reasons: asthma Inspector Ball Points Required: No Accompanied by: Self / Same As Patient Allergies No Known Allergies Allergy (Verified 03/24/25 13:35) HPI HPI asthma: Details: 69-year-old lady, former 30+ pack-year smoker, quit 2011, followed for underlying asthma/COPD overlap syndrome and pulmonary component dyspnea on exertion.? Patient was started on Fasenra after the last office visit and had 2 injections so far. She does report significantly improved symptom control. She continues on Trelegy and albuterol MDI. Her lower extremity edema and orthopnea has been well controlled on current regimen of furosemide 40 mg daily. She denies recent acute exacerbations. [facility] Medical History (Updated 11/19/24 @ 10:27 by Andrew Spivey MD) Dyspnea on exertion Annual physical exam Family history of colon cancer Tubular adenoma of colon Chest pain Asthma Colon cancer screening Cough COVID-19 virus infection Vitamin D deficiency Rectocele Vaginal prolapse Obesity (BMI 30-39.9) COPD (chronic obstructive pulmonary disease) Anxiety Hypercholesterolemia Coronary artery disease Hypertension Type 2 diabetes mellitus with hyperglycemia Surgical History History of arthroscopy of left knee History of knee replacement procedure of left knee History of orthopedic surgery History of vaginal hysterectomy Family History Father Esophageal cancer Mother Hypertension CVD (cardiovascular disease) Daughter Cancer Social History Housing: House (rented) Alcohol intake: never Patient Tobacco Use Status: Former Tobacco user Tobacco use type: Cigarette Years Smoked: quit 2010 e-Cigarette/Vaping Use: Never Used Second Hand Smoke Exposure: No service: No Current occupational status: retired Cognitive needs: No Hearing needs: No Vision needs: Yes Review of Systems Const Denies chills, Denies fatigue, Denies fever(s), Denies weight gain and Denies weight loss Eyes Denies blurry vision and Denies itchy eyes ENT Denies dizziness Card Denies chest pain, Denies leg edema, Denies lightheadedness, Denies palpitations, Denies dyspnea on exertion, Denies orthopnea and Denies other Resp Denies cough, Denies dyspnea on exertion and Denies wheezing GI Denies hematochezia and Denies change in stool character Musc Denies abnormal gait, Denies muscle weakness, Denies numbness, Denies radiating pain into limb and Denies tingling Skin/Breast Denies rash Neuro Denies abnormal gait, Denies dizziness, Denies memory loss, Denies numbness and Denies tingling Psych Denies abnormal sleep pattern, Denies anxiety and Denies memory loss Endo Denies fatigue and Denies palpitations Reece/Lymph Denies easy bruising Aller/Immun Denies itchy eyes, Denies seasonal rhinorrhea and Denies wheezing Physical Exam Vital Signs: Last Vital Signs Pulse 69 03/24/25 13:32 BP 120/60 03/24/25 13:32 Pulse Ox 96 03/24/25 13:32 Oxygen Delivery Method Room Air 03/24/25 13:32 BMI result Body Mass Index 38.6 Const General: no acute distress and alert Nutritional Appearance: obese Orientation/consciousness: Other orientation findings ( oriented) HEENT Head: Yes atraumatic Eyes General: appearance normal, both eyes and all related structures Sclerae: sclerae normal EOM: EOMs intact bilaterally Neck Neck: Yes supple Lymphatic: no lymphadenopathy noted Resp Effort & Inspection: normal respiratory effort and no use of accessory muscles Auscultation: clear to auscultation bilaterally Cardio Rate: regular rate Rhythm: regular rhythm Heart sounds: no gallops, no murmurs and no rubs Skin General skin exam: other ( warm) Extrem General: No clubbing, No cyanosis and No edema Assessment & Plan Assessment & Plan (1) Severe persistent asthma: Code(s): J45.50 - Severe persistent asthma, uncomplicated Category: Medical Plan: Improving after initiation on Fasenra. Continue baseline regimen of Trelegy and albuterol MDI. (2) Environmental allergies: Code(s): Z91.09 - Other allergy status, other than to drugs and biological substances Category: Medical Plan: Significantly improved on Fasenra. Continue current regimen. (3) Lower extremity edema: Code(s): R60.0 - Localized edema Category: Medical Plan: Now well controlled on current regimen of Lasix 40 mg daily. Continue current regimen. Coding Level of Care Code Est Pt Level 4 (80299) Complex EM visit Add On G2211 Diagnoses Severe persistent asthma J45.50 Environmental allergies Z91.09 Lower extremity edema R60.0
--- OUTSIDE RECORDS SUMMARY | 2025-03-24 13:59 | XMS_ITS | Clinical Summary ---
Author Organization [facility] ity Address [address] [place] [address] Care Team Providers Care Home Sales Consultant Name Role Phone Unavailable Primary Care Provider [...] Influencers of Health Screening 10/03/2022 COVID-19 Vaccine (2023-2 5 season) 2024 Influenza Vaccine (Season Ended) 2025 RSV Immunization Adult Patie nts (1 - 1-dose 75+ series) 2028 HIB [...] age to complete this topic Meningococcal B Vaccine Aged Out No l onger eligible based on patient's age to complete this topic RSV Immunization Patients Un anali 20 months Aged Out No longer eligible b ased on patient's age to complete this topic Varicella Vaccines Aged Out No longer eligible based on patient's age to complete this topic
== END 2025-03-24 13:50 | disposition home or self-care (01) ==
LOC: HO.HPS 13:25
PROVIDERS: PCP Internal Medicine; Visit Provider Internal Medicine Pulmonary Disease
DX: J45.50 Severe persistent asthma, uncomplicated (principal); Z91.09 Other allergy status, other than to drugs and biological substances; R60.0 Localized edema
CPT/HCPCS: 99214; G2211

== ENCOUNTER → 2025-03-24 13:24 | Outpatient (BNVA) | payer MEDICARE, SELFPAY | PROVIDERS: PCP Internal Medicine; Visit Provider Internal Medicine Pulmonary Disease | DX: J45.50 Severe persistent asthma, uncomplicated (principal); Z91.09 Other allergy status, other than to drugs and biological substances; R60.0 Localized edema | CPT/HCPCS: 99212 ==

== ENCOUNTER 2025-03-25 11:56 | Outpatient (REF) | payer MEDICARE, SELFPAY ==
--- OUTSIDE RECORDS SUMMARY | 2025-03-25 12:22 | XMS_ITS | Clinical Summary ---
Author Organization [facility] ity Address [address] [place] [address] Care Team Providers Care Health It Specialist Name Role Phone Unavailable Primary Care Provider [...]
== END 2025-03-25 11:57 | disposition home or self-care (01) ==
LOC: HO.MAMMO 11:56
PROVIDERS: PCP Internal Medicine; Visit Provider Internal Medicine
DX: Z12.31 Encounter for screening mammogram for malignant neoplasm of breast (principal)
CPT/HCPCS: 77063; 77067

== ENCOUNTER → 2025-03-25 12:15 | Outpatient (BNV) | payer MEDICARE, SELFPAY | PROVIDERS: PCP Internal Medicine; Visit Provider Internal Medicine | DX: Z12.31 Encounter for screening mammogram for malignant neoplasm of breast (principal) | CPT/HCPCS: 77063; 77067 ==

== ENCOUNTER 2025-06-28 13:20 | Outpatient (AMB) | payer MEDICARE, SELFPAY ==
--- NOTE | 2025-06-28 13:24 | MHC.PC.OV ---
Vital Signs 06/28/25 13:25 Height 5 ft 6 in Weight 230 lb BMI 37.1 BP 134/68 Blood Pressure Location Lt brachial Position Sitting Pulse 76 Pulse Source Pulse Oximeter Pulse Oximetry (%) 95 Oxygen Delivery Method Room Air Intake Visit Reasons: DM Stiff Leg Derrick Operator Required: Yes Stiff Leg Derrick Operator Language: Slovenian Accompanied by: Self / Same As Patient Allergies No Known Allergies Allergy (Verified 06/28/25 13:25) Tobacco use date assessed: 06/28/25 Fall risk assessment: No Falls in past year Last assessed Fall Risk: 06/28/25 Dental Screening Dental Screen Date: 11/12/24 Did you have a dental visit in the last 12 months?: No Did you have a dental problem in the last 6 months where you did not have access to dental care?: No Was dental information given to patient?: No PFSH Medical History Dyspnea on exertion Annual physical exam Family history of colon cancer Tubular adenoma of colon Chest pain Asthma Colon cancer screening Cough COVID-19 virus infection Vitamin D deficiency Rectocele Vaginal prolapse Obesity (BMI 30-39.9) COPD (chronic obstructive pulmonary disease) Anxiety Hypercholesterolemia Coronary artery disease Hypertension Type 2 diabetes mellitus with hyperglycemia Surgical History History of orthopedic surgery History of knee replacement procedure of left knee History of arthroscopy of left knee History of vaginal hysterectomy Family History Father Esophageal cancer Mother Hypertension CVD (cardiovascular disease) Daughter Cancer Social History Housing: House (rented) Alcohol intake: never Patient Tobacco Use Status: Former Tobacco user Tobacco use type: Cigarette Years Smoked: quit 2010 e-Cigarette/Vaping Use: Never Used Second Hand Smoke Exposure: No service: No Current occupational status: retired Cognitive needs: No Hearing needs: No Vision needs: Yes Questionnaire PHQ-9 Over the last 2 weeks, how often have you been bothered by any of the following problems? 1. Little interest or pleasure in doing things: several days 2. Feeling down, depressed, or hopeless: several days 3. Trouble falling or staying asleep, or sleeping too much: not at all 4. Feeling tired or having little energy: several days 5. Poor appetite or overeating: not at all 6. Feeling bad about yourself - or that you are a failure or have let yourself or your family down: not at all 7. Trouble concentrating on things, such as reading the newspaper or watching television: not at all 8. Moving or speaking so slowly that other people could have noticed. Or the opposite - being so fidgety or restless that you have been moving around a lot more than usual: several days 9. Thoughts that you would be better off or of hurting yourself in some way: not at all Total score: 4 Source: Developed by Drs. Jae Gooden, Darlene Giang, Glen Ang and colleagues, with an educational demetri from [employer]. Thrive Questionnaire Date Thrive assessed: 11/12/24 I am a: Patient What is your living situation today?: I choose not to answer this question Within the past 12 months, did the food you bought not last and you didn't have the money to get more?: Sometimes True Within the past 12 months, did you worry whether your food would run out before you got money to buy more?: Sometimes True Do you have trouble paying for medicines?: I choose not to answer this question Do you have trouble getting transportation to medical appointments?: No Do you have trouble paying your heating and electricity bill?: Yes Do you have trouble taking care of your child, family member or friend?: No Do you have trouble with day-to-day activities such as bathing, preparing meals, shopping, managing finances, etc.?: Yes Are you currently unemployed and looking for a job?: No Are you interested in more education?: I choose not to answer this question Currently or been in a relationship where the following occur: Controlled Emotionally THRIVE Score: 4 AUDIT C Alcohol Use Questionnaire (AUDIT-C) 1. How often do you have a drink containing alcohol?: Never 3. How often do you have six or more drinks on one occasion?: Never Total Score: 0 RACHEL-7 AMB Questionnaire RACHEL-7 Date RACHEL - 7 assessed: 11/12/24 Worrying too much about different things: 1 = Several days Trouble relaxin = Several days Being so restless that it is hard to sit still: 0 = Not at all Becoming easily annoyed or irritable: 1 = Several days Feeling afraid as if something awful might happen: 0 = Not at all Source: Developed by Drs. Jae Gooden, Darlene Giang, Glen Ang and colleagues, with an educational demetri from [employer]. Physical exam (Primary Care) Vital Signs: Last Vital Signs Pulse 76 06/28/25 13:25 BP 134/68 06/28/25 13:25 Pulse Ox 95 06/28/25 13:25 Oxygen Delivery Method Room Air 06/28/25 13:25 BMI result Body Mass Index 37.1 Tobacco/Smoking Status: Tobacco use Status Tobacco use date assessed 06/28/25 06/28/25 13:28 Patient Tobacco Use Status Former Tobacco user 06/28/25 13:28 Tobacco use type Cigarette 06/28/25 13:28 e-Cigarette/Vaping Use Never Used 06/28/25 13:28 PHQ-9: PHQ-9 Score PHQ-9: Total score 4 06/28/25 13:54 Thrive Assessment: Date of Thrive Assessment Date Thrive assessed 11/12/24 06/28/25 13:28 Currently or been in a relationship where the following occur: Controlled Emotionally Const General: alert; No acute distress Eyes Conjunctivae: conjunctivae normal Resp Auscultation: clear to auscultation bilaterally Cardio Rate: regular rate Rhythm: regular rhythm GI Inspection: Yes normal to inspection Extrem General: Yes normal to inspection and No edema Results AMB Hemoglobin A1c AMB Hemoglobin A1c 6.3 % Last Edit by COLLIN Lagunas on 06/28/25 13:54 Results Reviewed Results Reviewed: Laboratory Last Values Hgb A1c (Clinic) 6.3 % (4.0-6.0) H 06/28/25 13:41 Coding Level of Care Code Est Pt Level 4 (91848) Complex EM visit Add On G2211 Diagnoses Type 2 diabetes mellitus with hyperglycemia E11.65 Hypercholesterolemia E78.00 Essential hypertension I10 Hypertension type: essential hypertension Coronary artery disease involving [place] coronary artery of [place] heart without angina pectoris I25.10 Associated angina: without angina Coronary Disease-Associated Artery/Lesion type: [place] artery [place] vs. transplanted heart: [place] heart Generalized anxiety disorder F41.1 Obesity (BMI 30-39.9) E66.9 Shoulder pain, right M25.511 Asthma-COPD overlap syndrome J44.9 Assessment & Plan Assessment & Plan (1) Type 2 diabetes mellitus with hyperglycemia: Comment: Dr. Mitchell Code(s): E11.65 - Type 2 diabetes mellitus with hyperglycemia Category: Medical Plan: Decrease the amount of carbohydrate intake, pasta, bread, rice and potatoes are all sugar and that is aside from all the sweet stuff, remember that fruits are good but they are Sweet also. Hemoglobin A1c goal of less than 7.0. Patient is taking metformin 500 mg twice a day (2) Hypercholesterolemia: Code(s): E78.00 - Pure hypercholesterolemia, unspecified Category: Medical Plan: Avoid fried foods, chicken skin, eggs, butter margarine, pastries and meat. Be it pork or beef they have a lot of cholesterol LDL goal of less than 70 and triglyceride of less than 150 on atorvastatin at 80 mg once a day (3) Hypertension: Code(s): I10 - Essential (primary) hypertension Category: Medical Qualifiers: Hypertension type: essential hypertension Qualified Code(s): I10 - Essential (primary) hypertension Plan: Continue with blood pressure medication. Decrease salt intake and exercise amlodipine 5 mg once a day lisinopril 5 mg once a day metoprolol 25 mg once a day (4) Coronary artery disease: Comment: CT 2012 stent placement bare metal stent,Dr. Mandy [place] Sees Dr Machado [id number] Code(s): I25.10 - Atherosclerotic heart disease of [place] coronary artery without angina pectoris Category: Medical Qualifiers: Associated angina: without angina Coronary Disease-Associated Artery/Lesion type: [place] artery [place] vs. transplanted heart: [place] heart Qualified Code(s): I25.10 - Atherosclerotic heart disease of [place] coronary artery without angina pectoris Plan: Control the cholesterol, weight, blood pressure, diabetes LDL goal of less than 70. (5) Generalized anxiety disorder: Code(s): F41.1 - Generalized anxiety disorder Category: Medical Plan: Continue with present medication (6) Obesity (BMI 30-39.9): Code(s): E66.9 - Obesity, unspecified Category: Medical Plan: Diet and exercise (7) Shoulder pain, right: Code(s): M25.511 - Pain in right shoulder Category: Medical Plan: X-ray done shows mild degenerative changes with old healing fractures (8) Asthma-COPD overlap syndrome: Code(s): J44.9 - Chronic obstructive pulmonary disease, unspecified Category: Medical Plan: Continue with albuterol as needed with Trelegy and remember to rinse mouth after using Plan History of Present Illness The patient is a 69-year-old female presenting for a follow-up visit. She has a history of coronary artery disease, hypertension, hypercholesterolemia, chronic obstructive pulmonary disease (COPD), diabetes mellitus, generalized anxiety disorder, and asthma-COPD overlap syndrome. Her last complete blood work in July 2024 showed normal blood count, normal electrolytes, and good renal function with a creatinine level of 0.85 mg/dL, although liver function tests were mildly elevated, which is a chronic issue. The patient has been experiencing right shoulder pain, and an X-ray revealed a right humeral head deformity with foreshortening, an old healed fracture, and mild arthritis. She is also managing fibromyalgia. Her preventative care includes a mammogram last done in March 2025, bone density in February 2024, and a colonoscopy in 2020, all of which are up to date. Health Maintenance - Mammogram last done in March 2025 - Bone density screening in February 2024 - Colonoscopy last done in 2020 Social History Review of Systems Physical Exam Results - Labs: Normal blood count, normal electrolytes, creatinine 0.85 mg/dL, mildly elevated liver function tests (chronic) - Imaging: X-ray showing right humeral head deformity with foreshortening, old healed fracture, mild arthritis Plan The patient will continue with her current medications for coronary artery disease, hypertension, hypercholesterolemia, COPD, and diabetes mellitus. For her asthma-COPD overlap syndrome, she is advised to continue using albuterol as needed and Trelegy, with a reminder to rinse her mouth after use. The management of her right shoulder pain includes monitoring the condition, given the X-ray findings of a humeral head deformity and mild arthritis. Preventative care measures are up to date, with recent screenings for mammogram, bone density, and colonoscopy. Patient was informed and verbally consented to the use of an ambient scribe for clinic note documentation during this visit. Discussion Notes Patient Instructions - Continue current medications for coronary artery disease, hypertension, hypercholesterolemia, COPD, and diabetes mellitus. - Use albuterol as needed and Trelegy for asthma-COPD overlap syndrome, and rinse mouth after use. - Monitor right shoulder pain and report any changes. Orders: Orders AMB Hemoglobin A1c Today E11.65 - Type 2 diabetes mellitus with hyperglycemia Complete Blood Count Auto Diff 3 Months E11.65 - Type 2 diabetes mellitus with hyperglycemia Lipid Panel 3 Months E11.65 - Type 2 diabetes mellitus with hyperglycemia, E78.00 - Pure hypercholesterolemia, unspecified Vitamin B12 and Folate 3 Months E11.65 - Type 2 diabetes mellitus with hyperglycemia Hemoglobin A1c 3 Months E11. - Type 2 diabetes mellitus with hyperglycemia Creatinine Urine 3 Months E11. - Type 2 diabetes mellitus with hyperglycemia Microalbumin, Random (w Creat) 3 Months E11.65 - Type 2 diabetes mellitus with hyperglycemia Comprehensive Met. Panel 3 Months E11. - Type 2 diabetes mellitus with hyperglycemia Free T4 (Free Thyroxine) 3 Months E11. - Type 2 diabetes mellitus with hyperglycemia Thyroid Stimulating Hormone 3 Months E11.65 - Type 2 diabetes mellitus with hyperglycemia Vitamin D 25-OH Total 3 Months E11.65 - Type 2 diabetes mellitus with hyperglycemia UA CC w/rflx Micro + Cult 3 Months E11.65 - Type 2 diabetes mellitus with hyperglycemia, R30.0 - Dysuria Referrals Orthopedics Referral M25.511 - Pain in right shoulder
[2025-06-28 13:25] VITALS: BP 134/68; PULSE 76; O2SAT 95; BMI 37.1
--- OUTSIDE RECORDS SUMMARY | 2025-06-28 14:41 | XMS_ITS | Clinical Summary ---
Author Organization [facility] ity Address [address] [place] [address] Care Team Providers Care Laboratory Mechanic Helper Name Role Phone Unavailable Primary Care Provider [...] 2) 2003 Colorectal Cancer Screening: Colonoscopy 10/03/2022 Falls Risk Assessment 10/03/2022 Hepatitis C Screening 10/03/2022 Osteoporosis Screening (Bone Density Screening) 10/03/2022 Social Influencers of Health Screening 10/03/2022 COVID-19 Vaccine (1 - 2023-2 5 season) 2024 Depression Screening 11/04/2024 Influenza Vaccine (#1) 2025 RSV Immunization Adult Patie nts (1 [...]
== END 2025-06-28 13:57 | disposition home or self-care (01) ==
LOC: HO.HMCH 13:21
PROVIDERS: PCP Internal Medicine; Visit Provider Internal Medicine
DX: E11.65 Type 2 diabetes mellitus with hyperglycemia (principal); J44.9 Chronic obstructive pulmonary disease, unspecified; E66.9 Obesity, unspecified; Z68.37 Body mass index [BMI] 37.0-37.9, adult; E78.00 Pure hypercholesterolemia, unspecified; I10 Essential (primary) hypertension; I25.10 Atherosclerotic heart disease of native coronary artery without angina pectoris; F41.1 Generalized anxiety disorder; M25.511 Pain in right shoulder

== ENCOUNTER → 2025-06-28 13:20 | Outpatient (BNVA) | payer MEDICARE, SELFPAY | PROVIDERS: PCP Internal Medicine; Visit Provider Internal Medicine | DX: E11.65 Type 2 diabetes mellitus with hyperglycemia (principal); E78.00 Pure hypercholesterolemia, unspecified; I10 Essential (primary) hypertension; I25.10 Atherosclerotic heart disease of native coronary artery without angina pectoris; F41.1 Generalized anxiety disorder; E66.9 Obesity, unspecified; M25.511 Pain in right shoulder; J44.9 Chronic obstructive pulmonary disease, unspecified; Z68.37 Body mass index [BMI] 37.0-37.9, adult | CPT/HCPCS: 83036; 96127; 99212 ==

== ENCOUNTER 2025-07-02 11:12 | Outpatient (AMB) | payer MEDICARE, SELFPAY ==
[2025-07-02 11:16] VITALS: BP 120/64; PULSE 69; O2SAT 96; BMI 37.3
--- NOTE | 2025-07-02 11:16 | MHC.OFFVIS ---
Vital Signs 07/02/25 11:16 Height 5 ft 6 in Weight 231 lb BMI 37.3 BP 120/64 Blood Pressure Location Lt brachial Position Sitting Pulse 69 Pulse Source Pulse Oximeter Pulse Oximetry (%) 96 Oxygen Delivery Method Room Air Intake Visit Reasons: Asthma Allergies No Known Allergies Allergy (Verified 06/28/25 13:25) HPI HPI Asthma: Details: 69-year-old lady, former 30+ pack-year smoker, quit 2011, followed for underlying asthma/COPD overlap syndrome and pulmonary component dyspnea on exertion.? She has been restarted on Fasenra with significantly improved symptom control. She also continues on Trelegy and albuterol MDI. Patient's orthopnea and well controlled current regimen of furosemide 40 mg daily. She denies recent exacerbations. [facility]LY [facility], [facility] Medical History Dyspnea on exertion Annual physical exam Family history of colon cancer Tubular adenoma of colon Chest pain Asthma Colon cancer screening Cough COVID-19 virus infection Vitamin D deficiency Rectocele Vaginal prolapse Obesity (BMI 30-39.9) COPD (chronic obstructive pulmonary disease) Anxiety Hypercholesterolemia Coronary artery disease Hypertension Type 2 diabetes mellitus with hyperglycemia Surgical History History of orthopedic surgery History of knee replacement procedure of left knee History of arthroscopy of left knee History of vaginal hysterectomy Family History Father Esophageal cancer Mother Hypertension CVD (cardiovascular disease) Daughter Cancer Social History Housing: House (rented) Alcohol intake: never Patient Tobacco Use Status: Former Tobacco user Tobacco use type: Cigarette Years Smoked: quit 2010 e-Cigarette/Vaping Use: Never Used Second Hand Smoke Exposure: No service: No Current occupational status: retired Cognitive needs: No Hearing needs: No Vision needs: Yes Review of Systems Const Denies daytime sleepiness, Denies excessive sweating, Denies fatigue, Denies fever(s), Denies lethargy, Denies malaise, Denies night sweats, Denies snoring and Denies weight loss Eyes Denies blurry vision and Denies itchy eyes ENT Denies nasal congestion, Denies post nasal drip, Denies sinus pain, Denies sinus pressure and Denies other ( Thrush) Card Denies chest pain, Denies pedal edema, Denies dyspnea, Denies orthopnea and Denies paroxysmal nocturnal dyspnea Resp Denies cough, Denies hemoptysis, Denies excessive phlegm production, Denies dyspnea, Denies snoring and Denies wheezing GI Denies abdominal pain and Denies heartburn Musc Denies myalgias, Denies arthralgias and Denies joint swelling Skin/Breast Denies rash Neuro Denies memory loss and Denies seizure-like activity Psych Denies abnormal sleep pattern, Denies anxiety and Denies memory loss Endo Denies excessive sweating, Denies fatigue and Denies heat intolerance Reece/Lymph Denies easy bruising Aller/Immun Denies itchy eyes, Denies seasonal rhinorrhea and Denies wheezing Physical Exam Vital Signs: Last Vital Signs Pulse 69 07/02/25 11:16 BP 120/64 07/02/25 11:16 Pulse Ox 96 07/02/25 11:16 Oxygen Delivery Method Room Air 07/02/25 11:16 BMI result Body Mass Index 37.3 Const General: no acute distress and alert Nutritional Appearance: obese Orientation/consciousness: Other orientation findings ( oriented) HEENT Head: Yes atraumatic Eyes General: appearance normal, both eyes and all related structures Sclerae: sclerae normal EOM: EOMs intact bilaterally Neck Neck: Yes supple Lymphatic: no lymphadenopathy noted Resp Effort & Inspection: normal respiratory effort and no use of accessory muscles Auscultation: clear to auscultation bilaterally Cardio Rate: regular rate Rhythm: regular rhythm Heart sounds: no gallops, no murmurs and no rubs Skin General skin exam: other ( warm) Extrem General: No clubbing, No cyanosis and No edema Assessment & Plan Assessment & Plan (1) Severe persistent asthma: Code(s): J45.50 - Severe persistent asthma, uncomplicated Category: Medical Plan: Well controlled on current regimen of Fasenra, trilogy, and albuterol MDI. Continue current regimen. (2) Environmental allergies: Code(s): Z91.09 - Other allergy status, other than to drugs and biological substances Category: Medical Plan: Well controlled on Fasenra and Singulair. Continue current regimen. Coding Level of Care Code Est Pt Level 4 (68652) Diagnoses Severe persistent asthma J45.50 Environmental allergies Z91.09
--- OUTSIDE RECORDS SUMMARY | 2025-07-02 11:51 | XMS_ITS | Clinical Summary ---
Author Organization [facility] ity Address [address] [place] [address] Care Team Providers Care Farm Reporter Name Role Phone Unavailable Primary Care Provider [...]
== END 2025-07-02 11:33 | disposition home or self-care (01) ==
LOC: HO.HPS 11:13
PROVIDERS: PCP Internal Medicine; Visit Provider Internal Medicine Pulmonary Disease
DX: J45.50 Severe persistent asthma, uncomplicated (principal); Z91.09 Other allergy status, other than to drugs and biological substances
CPT/HCPCS: 99214

== ENCOUNTER → 2025-07-02 11:12 | Outpatient (BNVA) | payer MEDICARE, SELFPAY | PROVIDERS: PCP Internal Medicine; Visit Provider Internal Medicine Pulmonary Disease | DX: J45.50 Severe persistent asthma, uncomplicated (principal); Z91.09 Other allergy status, other than to drugs and biological substances | CPT/HCPCS: 99212 ==

== ENCOUNTER 2025-09-23 15:28 | Outpatient (AMB) | payer MEDICARE, SELFPAY ==
--- NOTE | 2025-09-23 15:30 | MHC.OFFVIS ---
Vital Signs 09/23/25 15:31 Height 5 ft 6 in Weight 228 lb BMI 36.8 BP 100/62 Blood Pressure Location Lt brachial Position Sitting Pulse 73 Pulse Source Pulse Oximeter Pulse Oximetry (%) 97 Oxygen Delivery Method Room Air Intake Visit Reasons: Asthma Allergies No Known Allergies Allergy (Verified 06/28/25 13:25) HPI HPI Asthma: Details: 69-year-old lady, former 30+ pack-year smoker, quit 2011, followed for underlying asthma/COPD overlap syndrome and pulmonary component dyspnea on exertion.? She has been restarted on Fasenra with significantly improved symptom control. She also continues on Trelegy and albuterol MDI. Patient's orthopnea and well controlled current regimen of furosemide 40 mg daily. She does complain of slowly worsening dyspnea on exertion. Patient is also complain of back pain that is particularly worse with ambulation. [facility] Medical History (Updated 09/23/25 @ 15:46 by Andrew Spivey MD) Dyspnea on exertion Annual physical exam Family history of colon cancer Tubular adenoma of colon Chest pain Asthma Colon cancer screening Cough COVID-19 virus infection Vitamin D deficiency Rectocele Vaginal prolapse Obesity (BMI 30-39.9) COPD (chronic obstructive pulmonary disease) Anxiety Hypercholesterolemia Coronary artery disease Hypertension Type 2 diabetes mellitus with hyperglycemia Surgical History History of orthopedic surgery History of knee replacement procedure of left knee History of arthroscopy of left knee History of vaginal hysterectomy Family History Father Esophageal cancer Mother Hypertension CVD (cardiovascular disease) Daughter Cancer Social History Housing: House (rented) Alcohol intake: never Patient Tobacco Use Status: Former Tobacco user Tobacco use type: Cigarette Years Smoked: quit 2010 e-Cigarette/Vaping Use: Never Used Second Hand Smoke Exposure: No service: No Current occupational status: retired Cognitive needs: No Hearing needs: No Vision needs: Yes Review of Systems Const Denies daytime sleepiness, Denies excessive sweating, Denies fatigue, Denies fever(s), Denies lethargy, Denies malaise, Denies night sweats, Denies snoring and Denies weight loss Eyes Denies blurry vision and Denies itchy eyes ENT Denies nasal congestion, Denies post nasal drip, Denies sinus pain, Denies sinus pressure and Denies other ( Thrush) Card Denies chest pain, Denies pedal edema, Denies dyspnea, Reports dyspnea on exertion, Denies orthopnea and Denies paroxysmal nocturnal dyspnea Resp Denies cough, Denies hemoptysis, Denies excessive phlegm production, Denies dyspnea, Reports dyspnea on exertion, Denies snoring and Denies wheezing GI Denies abdominal pain and Denies heartburn Musc Denies myalgias, Denies arthralgias and Denies joint swelling Skin/Breast Denies rash Neuro Denies memory loss and Denies seizure-like activity Psych Denies abnormal sleep pattern, Denies anxiety and Denies memory loss Endo Denies excessive sweating, Denies fatigue and Denies heat intolerance Reece/Lymph Denies easy bruising Aller/Immun Denies itchy eyes, Denies seasonal rhinorrhea and Denies wheezing Physical Exam Vital Signs: Last Vital Signs Pulse 73 09/23/25 15:31 BP 100/62 09/23/25 15:31 Pulse Ox 97 09/23/25 15:31 Oxygen Delivery Method Room Air 09/23/25 15:31 BMI result Body Mass Index 36.8 Const General: no acute distress and alert Nutritional Appearance: obese Orientation/consciousness: Other orientation findings ( oriented) HEENT Head: Yes atraumatic Eyes General: appearance normal, both eyes and all related structures Sclerae: sclerae normal EOM: EOMs intact bilaterally Neck Neck: Yes supple Lymphatic: no lymphadenopathy noted Resp Effort & Inspection: normal respiratory effort and no use of accessory muscles Auscultation: clear to auscultation bilaterally Cardio Rate: regular rate Rhythm: regular rhythm Heart sounds: no gallops, no murmurs and no rubs Skin General skin exam: other ( warm) Extrem General: No clubbing, No cyanosis and No edema Assessment & Plan Assessment & Plan (1) Asthma-COPD overlap syndrome: Code(s): J44.9 - Chronic obstructive pulmonary disease, unspecified Category: Medical Plan: Well controlled on current regimen of Fasenra, Trelegy, and albuterol MDI. Continue current regimen. (2) Environmental allergies: Code(s): Z91.09 - Other allergy status, other than to drugs and biological substances Category: Medical Plan: Well controlled on Fasenra and Singulair. Continue current regimen. (3) Dyspnea on exertion: Code(s): R06.00 - Dyspnea, unspecified Category: Medical Plan: Underlying CAD with previous bare metal stenting, not seen by Cardiology for many years, will refer for further cardiology evaluation. (4) Back pain: Code(s): M54.9 - Dorsalgia, unspecified Category: Medical Plan: Particularly worse with exertion, will refer for pain management evaluation. Orders: Referrals Pain Management Referral M54.9 - Dorsalgia, unspecified Cardiology Referral R06.00 - Dyspnea, unspecified Coding Level of Care Code Complex visit Add On G2211 Diagnoses Asthma-COPD overlap syndrome J44.9 Environmental allergies Z91.09 Dyspnea on exertion R06.00 Back pain M54.9
[2025-09-23 15:31] VITALS: BP 100/62; PULSE 73; O2SAT 97; BMI 36.8
--- OUTSIDE RECORDS SUMMARY | 2025-09-23 20:36 | XMS_ITS | Clinical Summary ---
Author Organization [facility] ity Address [address] [place] [address] Care Team Providers Care Environmental Protection Geologist Name Role Phone Unavailable Primary Care Provider [...] Last Done Comments Breast Cancer Screening 1955 Colorectal Cancer Screening: Colonoscopy 1955 DTaP,Tdap,and Td Vaccines (1 - Tdap) 1972 Pneumococcal Vaccine: 50+ Ye ars (1 of 1 - PCV) 2003 Zoster Vaccines (1 of 2) 2003 Falls Risk Assessment 10/03/2022 Hepatitis C Screening 10/03/2022 Osteoporosis Screening (Bone Density Screening) 10/03/2022 Social Influencers of Health Screening 10/03/2022 Depression Screening 11/04/2024 COVID-19 Vaccine (1 - 2024-2 6 season) 2025 Influenza Vaccine (#1) 2025 RSV Immunization Adult [...]
== END 2025-09-23 15:45 | disposition home or self-care (01) ==
LOC: HO.HPS 15:29
PROVIDERS: PCP Internal Medicine; Visit Provider Internal Medicine Pulmonary Disease
DX: J44.9 Chronic obstructive pulmonary disease, unspecified (principal); Z91.09 Other allergy status, other than to drugs and biological substances; R06.00 Dyspnea, unspecified; M54.9 Dorsalgia, unspecified
CPT/HCPCS: 99214; G2211

== ENCOUNTER → 2025-09-23 15:28 | Outpatient (BNVA) | payer MEDICARE, SELFPAY | PROVIDERS: PCP Internal Medicine; Visit Provider Internal Medicine Pulmonary Disease | DX: J44.89 Other specified chronic obstructive pulmonary disease (principal); Z91.09 Other allergy status, other than to drugs and biological substances; R06.00 Dyspnea, unspecified; M54.9 Dorsalgia, unspecified; Z87.891 Personal history of nicotine dependence | CPT/HCPCS: 99212 ==

== ENCOUNTER 2025-09-28 10:15 | Outpatient (REF) | payer MEDICARE, SELFPAY ==
[2025-09-28 10:43] LABS: MANUAL DIFF FLAG NO
[2025-09-28 11:12] LABS: Hematocrit 40.6 % (37.0-47.0); Hemoglobin 12.9 g/dl (12.0-16.0); Imm Gran Abs Auto 0.02 X10*3/uL (0.00-0.03); Imm Gran Pct Auto 0.3 % (0.0-0.4); Lymphocytes Absolute Auto 3.2 X10*3/uL (1.2-4.9); Mean Corpuscular HGB Conc 31.8 g/dl (31.0-35.0); Mean Corpuscular Hemoglobin 29.1 pg (27.0-33.0); Mean Corpuscular Volume 91.4 fL (80.0-98.0); NRBC Abs Auto 0.000 X10*3/uL (0.0-0.012); NRBC Pct Auto 0.0 /100WBC (0.0-0.2); Platelet Count 229 X10*3/uL (160-400); Red Blood Count 4.44 X10*6/uL (4.20-5.50); White Blood Count 7.5 X10*3/uL (4.8-10.8)
[2025-09-28 11:18] LABS: Appearance Urine Clear; Glucose Urine UA Negative (Negative); PH 8.5 (5.0-9.0); Specific Gravity - Urine 1.015 (1.005-1.025); UMIC TRIGGER UACC YES
[2025-09-28 11:26] LABS: UACC Culture Trigger YES
[2025-09-28 11:46] LABS: Microalbum/Creatinine Ratio Ur 7.0 ug/mg cr (<30)
[2025-09-28 11:48] LABS: Alanine Aminotransferase 47 U/L (0-31); Albumin Level 4.4 g/dL (3.5-5.0); Alkaline Phosphatase 62 U/L (39-117); Anion Gap 15 (12-20); Aspartate Amino Transferase 51 U/L (5-31); Blood Urea Nitrogen 11 mg/dL (9-16); Calcium 9.6 mg/dL (8.4-10.2); Carbon Dioxide 27 mmol/L (22-29); Chloride 107 mmol/L (96-108); Cholesterol 135 mg/dL (<200); Estimated Glomerular Filt Rate > 60; HDL Cholesterol 46 mg/dL (>40); Potassium 4.2 mmol/L (3.3-5.1); Sodium 145 mmol/L (135-145); Total Protein 7.5 g/dL (6.5-8.0); Triglycerides 176 mg/dL (<150)
[2025-09-28 12:04] LABS: Free T4 (Free Thyroxine) 1.01 ng/dL (0.71-1.85); Thyroid Stimulating Hormone 2.52 uIU/mL (0.32-4.0)
[2025-09-28 12:20] LABS: Folate 14.8 ng/mL (> or = 4.0); Vitamin B12 520 pg/mL (200-900)
--- OUTSIDE RECORDS SUMMARY | 2025-09-28 12:36 | XMS_ITS | Clinical Summary ---
Author Organization [facility] ity Address [address] [place] [address] Care Team Providers Care Grinding Mill Operator Name Role Phone Unavailable Primary Care Provider [...]
== END 2025-09-28 10:16 | disposition home or self-care (01) ==
LOC: HO.LAB 10:15
PROVIDERS: PCP Internal Medicine; Visit Provider Internal Medicine
DX: E11.65 Type 2 diabetes mellitus with hyperglycemia (principal); E78.00 Pure hypercholesterolemia, unspecified; R30.0 Dysuria
CPT/HCPCS: 36415; 80053; 80061; 81001; 82043; 82306; 82570; 82607; 82746; 83036; 84439; 84443; 85025; 87086

== ENCOUNTER 2025-10-15 14:02 | Outpatient (AMB) | payer MEDICARE, SELFPAY ==
--- NOTE | 2025-10-15 14:05 | MHC.OFFVIS ---
Vital Signs 10/15/25 14:09 Height 5 ft 6 in Weight 227 lb BMI 36.6 BP 141/84 H Blood Pressure Location Lt brachial Position Sitting Pulse 75 Pulse Source Pulse Oximeter Pulse Oximetry (%) 98 Oxygen Delivery Method Room Air Intake Visit Reasons: Dorsalgia, unspecified Intake Note: Pain today 5/10 Mounter Automatic Required: No Accompanied by: Self / Same As Patient Allergies No Known Allergies Allergy (Verified 10/15/25 14:12) HPI Comments Details: The patient is a 70 year old female presenting for evaluation of chronic low back pain. She has had back pain for a long time, which she attributes to arthritis. The pain is rated 8/10, affects her daily activities such as cooking and house chores, and is minimal when she is sitting for a short period. The pain worsens with bending down, activity, getting up from a sitting position, and walking up stairs, which is even worse. She has to sit down to get relief when the pain starts while she is active. She describes the pain as sore, achy, sometimes sharp, and sometimes burning, primarily located in the lower back, more on the left side and across, with associated buttock pain and some radiation to the groin, worse on the left side. She notes that cold weather exacerbates her pain. For management, she has tried heat, cold showers, and Tylenol Arthritis. She has never had physical therapy, injections, or surgery for her back. She denies taking ibuprofen or tramadol and expressed concern about her liver. Her past medical history is significant for well-controlled diabetes, managed with metformin, with a recent blood sugar of 94. She has a history of osteopenia/osteoporosis. Past surgical history includes a left knee replacement, right ankle surgery, and right shoulder surgery for a broken bone over two years ago, which still bothers her. She has a forthcoming Orthopedics appointment for her shoulder. She uses a cane for ambulation. Pain Description - Onset: Long-standing. - Location: Lower back, predominantly on the left side and extending across. - Radiation: She reports pain in the buttock and radiation to the groin. - Quality: Described as sore, achy, and sometimes sharp or burning. - Severity: Rated as 8/10. - Exacerbating Factors: Pain worsens with activity, bending down, house chores, getting up from a sitting position, walking up stairs, and cold weather. - Relieving Factors: Pain is minimal when sitting for a short time, and she needs to sit down to achieve pain relief when active. - Interference with Function: The pain affects her daily activities and movements. Pain Management - Analgesia: The patient is currently taking Tylenol Arthritis for pain. - Analgesia: Current pain level is reported as 8/10. - Adverse Effects: The patient does not take ibuprofen or tramadol, citing concerns about her liver. - Activities of Daily Living: The pain affects her daily activities, functioning, and movements such as bending, cooking, and house chores. - Activities of Daily Living: She has difficulty getting up from a seated position and walking up stairs. - Aberrant Drug Related Behaviors: No aberrant drug-related behaviors were noted. Oswestry Low Back Pain Disability Score=27 [facility] Medical History (Updated 10/17/25 @ 23:28 by ADRIAN Corrales) Dyspnea on exertion Annual physical exam Family history of colon cancer Tubular adenoma of colon Chest pain Asthma Colon cancer screening Cough COVID-19 virus infection Vitamin D deficiency Rectocele Vaginal prolapse Obesity (BMI 30-39.9) COPD (chronic obstructive pulmonary disease) Anxiety Hypercholesterolemia Coronary artery disease Hypertension Type 2 diabetes mellitus with hyperglycemia Surgical History History of orthopedic surgery History of knee replacement procedure of left knee History of arthroscopy of left knee History of vaginal hysterectomy Family History Father Esophageal cancer Mother Hypertension CVD (cardiovascular disease) Daughter Cancer Social History Housing: House (rented) Alcohol intake: never Patient Tobacco Use Status: Former Tobacco user Tobacco use type: Cigarette Years Smoked: quit 2010 e-Cigarette/Vaping Use: Never Used Second Hand Smoke Exposure: No service: No Current occupational status: retired Cognitive needs: No Hearing needs: No Vision needs: Yes Review of Systems Narrative - Musculoskeletal: Reports long-standing back pain, buttock pain, and pain in the right shoulder post-surgery. - Musculoskeletal: Denies hip pain at rest but reports pain in the left hip with specific movements. - Neurological: Reports pain radiation to the groin.Denies pain radiation down the legs, denies bladder or bowel dysfunction or saddle anesthesia. Const All systems reviewed & are unremarkable except as noted in HPI and below Physical Exam Vital Signs: Last Vital Signs Pulse 75 10/15/25 14:09 BP 141/84 H 10/15/25 14:09 Pulse Ox 98 10/15/25 14:09 Oxygen Delivery Method Room Air 10/15/25 14:09 BMI result Body Mass Index 36.6 General: Appears afebrile. Alert and oriented. Mood and affect appropriate. Follows and participates in conversation appropriately. Respiratory effort is unlabored. No cough. Able to transition from sit to stand unassisted. Uses cane with ambulation. Ambulates with bilaterally normal heel strike and toe off. Difficulty rising from seated position due to increased back pain. General: Yes no CVA tenderness Back/Spine/Pelvis Other: Limited lumbar ROM due to pain. No midline TTP in cervical, thoracic or lumbar spine. Lumbar extension and axial rotations reproduce moderate pain. Lumbar flexion is limited, causes mild discomfort. Demonstrates 5/5 strength of quadriceps bilaterally as well as flexion/dorsiflexion of bilateral feet against resistance. 2+ pedal pulses bilaterally. Straight leg rise with dorsiflexion negative bilaterally. +1 patellar and achilles reflexes bilaterally. Facet loading test positive bilaterally. Limited See?s, Gaenslen, Pelvic compression and Stinchfield tests are positive bilaterally, left>right. Moderate groin pain with I/E left hip rotations. Valsalva maneuver negative. Back: no CVA tenderness Cervical Spine: cervical ROM normal, cervical muscular tenderness and No Cervical spine tenderness Thoracic/Lumbar Spine: thoracic and lumbar spine normal to inspection, No Thoracic/lumbar spine scar(s), Lasegue's sign negative, straight leg raise negative bilaterally, pain with thoraco-lumbar ROM, thoraco-lumbar ROM limited, No thoracic spinal tenderness and lumbar spinal tenderness (L4-S1) Pelvis: buttock tenderness on the left Sacroiliac joints: bilaterally tender to palpation Extrem General: Yes capillary refill normal, Yes no clubbing, cyanosis or edema and Yes no calf tenderness Results Reviewed Results Reviewed: XR LUMBAR SPINE 6 OR MORE VIEWS INCLUDING BENDING 10/15/25 HISTORY: M54.9 - Dorsalgia, unspecified COMPARISON: There are no prior studies for comparison. FINDINGS: AP, bilateral oblique, coned-down, and neutral, flexion, and extension lateral views of the lumbar spine are submitted. The bones are osteopenic. Five nonrib-bearing lumbar vertebral bodies are identified, maintaining normal height without evidence of fracture there is anterolisthesis of L5 on S1 measuring approximately 4 mm on flexion. This reduces in the neutral and extension positions.. The intervertebral disc spaces are preserved. There is osteoarthritis of the facet joints. There is calcification of the abdominal aorta. IMPRESSION: Osteopenia. Anterolisthesis of L5 on S1 measuring 4 mm in flexion. XR HIP, LEFT 10/15/25 CLINICAL INFORMATION: M25.552 - Pain in left hip COMPARISON: None available. TECHNIQUE: AP pelvis, and 2 views of the left hip. FINDINGS: No fracture, dislocation, or suspicious bone lesion. Normal bone mineralization. Normal alignment. Mild degenerative changes are present in both hip joints. Normal femoral head contours without evidence of AVN. SI joints demonstrate left greater than right degenerative arthrosis. Soft tissues demonstrate vascular calcifications but are otherwise normal. IMPRESSION: 1. No acute bony or soft tissue abnormalities of the left hip. 2. Mild degenerative arthritis. Assessment & Plan Assessment & Plan (1) Chronic back pain: Code(s): M54.9 - Dorsalgia, unspecified; G89.29 - Other chronic pain Category: Medical (2) Left hip pain: Code(s): M25.552 - Pain in left hip Category: Medical (3) Sacroiliac joint pain: Code(s): M53.3 - Sacrococcygeal disorders, not elsewhere classified Category: Medical (4) Lumbar degenerative disc disease: Code(s): M51.369 - Other intervertebral disc degeneration, lumbar region without mention of lumbar back pain or lower extremity pain Category: Medical (5) Lumbosacral spondylosis: Code(s): M47.817 - Spondylosis without myelopathy or radiculopathy, lumbosacral region Category: Medical (6) Osteoarthritis of hips, bilateral: Code(s): M16.0 - Bilateral primary osteoarthritis of hip Category: Medical (7) Spondylolisthesis, lumbar region: Code(s): M43.16 - Spondylolisthesis, lumbar region Category: Medical Plan To further evaluate the patient's chronic low back pain, which appears to have components of hip and sacroiliac joint involvement, x-rays of the back and hip with SI joint views will be ordered. This imaging were completed today after today's visit as noted above. A referral for physical therapy will be placed for a facility in [place], close to her home per patient's request. If conservative management including physical therapy does not yield sufficient improvement, the next step would be to consider diagnostic temporary nerve block injections for axial low back pain for potential RFA procedure and therapeutic injections for hip or SI joint pain. All questions and concerns have been answered and patient agreed with the treatment plan. Follow up for and sooner as needed. Patient was informed and verbally consented to the use of an ambient scribe for clinic note documentation during this visit. Orders: Orders XR lumbar spine 6V w bending 10/15/25 G89.29 - Other chronic pain, M54.9 - Dorsalgia, unspecified PT Evaluation and Treatment 10/15/25 G89.29 - Other chronic pain, M25.552 - Pain in left hip, M47.817 - Spondylosis without myelopathy or radiculopathy, lumbosacral region, M51.369 - Other intervertebral disc degeneration, lumbar region without mention of lumbar back pain or lower extremity pain, M53.3 - Sacrococcygeal disorders, not elsewhere classified, M54.9 - Dorsalgia, unspecified XR hip LT w PEL1V 10/15/25 M25.552 - Pain in left hip, M53.3 - Sacrococcygeal disorders, not elsewhere classified Coding Level of Care Code New Pt Level 4 (23752) Diagnoses Chronic back pain M54.9; G89.29 Left hip pain M25.552 Sacroiliac joint pain M53.3 Lumbar degenerative disc disease M51.369 Lumbosacral spondylosis M47.817 Osteoarthritis of hips, bilateral M16.0 Spondylolisthesis, lumbar region M43.16
[2025-10-15 14:09] VITALS: BP 141/84; PULSE 75; O2SAT 98; BMI 36.6
--- OUTSIDE RECORDS SUMMARY | 2025-10-15 19:26 | XMS_ITS | Clinical Summary ---
Author Organization [facility] ity Address [address] [place] [address] Care Team Providers Care Brusher Machine Name Role Phone Unavailable Primary Care Provider [...]
== END 2025-10-15 14:53 | disposition home or self-care (01) ==
LOC: HO.PMC 14:03
PROVIDERS: PCP Internal Medicine; Visit Provider Nurse Practitioner Family
DX: M54.9 Dorsalgia, unspecified (principal); G89.29 Other chronic pain; M25.552 Pain in left hip; M53.3 Sacrococcygeal disorders, not elsewhere classified; M51.369 Other intervertebral disc degeneration, lumbar region without mention of lumbar back pain or lower extremity pain; M47.817 Spondylosis without myelopathy or radiculopathy, lumbosacral region; M16.0 Bilateral primary osteoarthritis of hip; M43.16 Spondylolisthesis, lumbar region
CPT/HCPCS: 99204

== ENCOUNTER 2025-10-15 14:02 | Outpatient (REF) | payer MEDICARE, SELFPAY ==
--- NOTE | ~2025-10-15 | XR_ITS ---
EXAMINATION: XR HIP, LEFT CLINICAL INFORMATION: M25.552 - Pain in left hip COMPARISON: None available. TECHNIQUE: AP pelvis, and 2 views of the left hip. FINDINGS: No fracture, dislocation, or suspicious bone lesion. Normal bone mineralization. Normal alignment. Mild degenerative changes are present in both hip joints. Normal femoral head contours without evidence of AVN. SI joints demonstrate left greater than right degenerative arthrosis. Soft tissues demonstrate vascular calcifications but are otherwise normal. XR/XR hip LT w PEL1V IMPRESSION: 1. No acute bony or soft tissue abnormalities of the left hip. 2. Mild degenerative arthritis. Electronically signed by: Michele Kim MD 10/15/2025 03:05 PM JUSTIN
--- NOTE | ~2025-10-15 | XR_ITS ---
EXAMINATION: XR LUMBAR SPINE 6 OR MORE VIEWS INCLUDING BENDING HISTORY: M54.9 - Dorsalgia, unspecified COMPARISON: There are no prior studies for comparison. FINDINGS: AP, bilateral oblique, coned-down, and neutral, flexion, and extension lateral views of the lumbar spine are submitted. The bones are osteopenic. Five nonrib-bearing lumbar vertebral bodies are identified, maintaining normal height without evidence of fracture there is anterolisthesis of L5 on S1 measuring approximately 4 mm on flexion. This reduces in the neutral and extension positions.. The intervertebral disc spaces are preserved. There is osteoarthritis of the facet joints. There is calcification of the abdominal aorta. XR/XR lumbar spine 6V w bending IMPRESSION: Osteopenia. Anterolisthesis of L5 on S1 measuring 4 mm in flexion. Electronically signed by: Jae Teran MD 10/15/2025 03:09 PM [facility]ENITE[facility]
== END 2025-10-15 14:03 | disposition home or self-care (01) ==
LOC: HO.XRAY 14:02
PROVIDERS: PCP Internal Medicine; Visit Provider Nurse Practitioner Family
DX: M51.369 Other intervertebral disc degeneration, lumbar region without mention of lumbar back pain or lower extremity pain (principal); M25.552 Pain in left hip; M53.3 Sacrococcygeal disorders, not elsewhere classified; M16.0 Bilateral primary osteoarthritis of hip; M47.817 Spondylosis without myelopathy or radiculopathy, lumbosacral region; G89.29 Other chronic pain; M43.16 Spondylolisthesis, lumbar region
CPT/HCPCS: 72114; 73502; 99202

== ENCOUNTER → 2025-10-15 14:38 | Outpatient (BNV) | payer MEDICARE, SELFPAY | PROVIDERS: PCP Internal Medicine; Visit Provider Radiology Diagnostic Radiology | DX: M43.17 Spondylolisthesis, lumbosacral region (principal); M85.88 Other specified disorders of bone density and structure, other site; M16.12 Unilateral primary osteoarthritis, left hip | CPT/HCPCS: 72114; 73502 ==

== ENCOUNTER 2025-10-20 14:18 | Outpatient (AMB) | payer MEDICARE, SELFPAY ==
--- NOTE | 2025-10-20 14:29 | A.OFFVIS_ITS ---
Intake Visit Reasons: CASE [employer]ER- Pain in right shoulder Intake Note: Trinidad is a 70 year old left hand dominant female who presents today as a new patient for an evaluation of right shoulder pain. Patient referred by PCP due to shoulder pain and x-ryas revealing a right humeral head deformity with foreshortening, an old healed fracture, and mild arthritis. Today patient reports her pain has been present for couple of years after she sustained a fall on her right shoulder. Her pain is located in her shoulder that travels down into her bicep area. Limited ROM. Occasional numbness and tingling in arm. Finds relief with use of Tylenol arthritis. Allergies No Known Allergies Allergy (Verified 10/20/25 14:37) Medication List - Last Reconciled 10/20/25 by Krista Brody PA-C albuterol sulfate 90 mcg/actuation 1 puff PO Q4H PRN amlodipine 5 mg PO DAILY aspirin (Adult Aspirin Regimen) 81 mg PO DAILY atorvastatin 80 mg PO DAILY 90 days benralizumab 30 mg subcut Q8W 28 days blood sugar diagnostic (OneTouch Verio test strips) As directed 1-2 x daily blood-glucose meter (OneTouch Verio Meter) As directed daily cholecalciferol (vitamin D3) 25 mcg PO DAILY clotrimazole 1% 1 appl topical BID 4 weeks ezetimibe 10 mg PO DAILY [id number]-ytdiixheu-djsnmjnu 200-62.5-25 mcg (Trelegy Ellipta) 1 inh inhalation DAILY furosemide 40 mg PO QAM lancets As directed check blood glucose 1-2 x daily lisinopril 5 mg PO DAILY loratadine 10 mg PO DAILY 90 days lorazepam 1 mg PO BEDTIME 90 days metformin 500 mg PO BID montelukast 10 mg PO DAILY omeprazole 40 mg PO DAILY HPI Comments Details: History of Present Illness The patient is a 70 year old female presenting with chronic right shoulder pain and limited motion. Her symptoms are sequelae of a right shoulder fracture sustained in a fall approximately two years ago, which was initially managed non-surgically. She reports being limited in her daily activities, with an inability to reach the top of her head, though she can reach her back pocket. Her right hand is her non-dominant hand. Her past medical history is significant for asthma, COPD for which she uses an inhaler but not home oxygen, hypertension, coronary artery disease with a history of a stent, and diabetes. She has a daughter who can provide assistance at home if she were to have surgery. Social History - Functional Status: The patient reports her shoulder condition limits her activities at home. - Social Support: The patient has a daughter who can provide help at home post- operatively. [facility] Medical History (Updated 10/20/25 @ 14:50 by Krista Brody PA-C) Dyspnea on exertion Annual physical exam Family history of colon cancer Tubular adenoma of colon Chest pain Asthma Colon cancer screening Cough COVID-19 virus infection Vitamin D deficiency Rectocele Vaginal prolapse Obesity (BMI 30-39.9) COPD (chronic obstructive pulmonary disease) Anxiety Hypercholesterolemia Coronary artery disease Hypertension Type 2 diabetes mellitus with hyperglycemia Surgical History History of orthopedic surgery History of knee replacement procedure of left knee History of arthroscopy of left knee History of vaginal hysterectomy Family History Father Esophageal cancer Mother Hypertension CVD (cardiovascular disease) Daughter Cancer Social History Housing: House (rented) Alcohol intake: never Patient Tobacco Use Status: Former Tobacco user Tobacco use type: Cigarette Years Smoked: quit 2010 e-Cigarette/Vaping Use: Never Used Second Hand Smoke Exposure: No service: No Current occupational status: retired Cognitive needs: No Hearing needs: No Vision needs: Yes Review of Systems Narrative Review of Systems - Musculoskeletal: Reports right shoulder pain and limited motion. - Respiratory: Reports a history of asthma and COPD. - Cardiovascular: Reports a history of hypertension and having a cardiac stent. - Endocrine: Reports a history of diabetes. Physical Exam Exam Exam: Physical Exam - Right Shoulder: Active range of motion is limited; patient is unable to elevate the arm to reach the top of her head. - Right Shoulder: Active internal rotation appears preserved as the patient is able to reach her back pocket. Results Reviewed Results Reviewed: XR shoulder RT min 2V IMPRESSION: Deformity right humeral head with foreshortening likely old healed fracture. No acute fracture or dislocation seen. Mild degenerative changes glenohumeral joint. Assessment & Plan Assessment & Plan (1) Post-traumatic osteoarthritis, right shoulder: Code(s): M19.111 - Post-traumatic osteoarthritis, right shoulder Category: Medical Plan Plan 1. Post-Traumatic Arthritis Of The Right Shoulder The patient's chronic pain and functional limitation are due to post-traumatic arthritis with collapse of the humeral head, a sequela of her prior fracture. It was explained that non-operative measures like cortisone injections may help with pain but will not improve her range of motion due to the altered joint anatomy. The definitive treatment recommended is a total shoulder replacement to restore joint anatomy and function. Given the patient's comorbidities, including asthma, COPD, hypertension, diabetes, and history of a cardiac stent, she is considered at increased risk for surgery. The plan is for the patient to obtain preoperative medical clearance from her primary care physician, chief librarian music department, and molecular genetic pathologist. She was advised to discuss the procedure with her daughter and her PCP at an upcoming appointment. A note will be sent to her PCP to coordinate care. The patient will follow up after her PCP visit to discuss proceeding with surgery. Patient was informed and verbally consented to the use of an ambient scribe for clinic note documentation during this visit. Coding Level of Care Code New Pt Level 3 (38350) Add On Problem Visit Only Diagnoses Post-traumatic osteoarthritis, right shoulder M19.111
--- OUTSIDE RECORDS SUMMARY | 2025-10-20 19:07 | XMS_ITS | Clinical Summary ---
Author Organization [facility] ity Address [address] [place] [id number] Care Team Providers Care Occupational Rehabilitation Aide Name Role Phone Unavailable Primary Care Provider [...]
== END 2025-10-20 16:02 | disposition home or self-care (01) ==
LOC: HO.HOS 14:18
PROVIDERS: PCP Internal Medicine; Visit Provider Physician Assistant
DX: M19.111 Post-traumatic osteoarthritis, right shoulder (principal)
CPT/HCPCS: 99203; G2211

== ENCOUNTER → 2025-10-20 14:18 | Outpatient (BNVA) | payer MEDICARE, SELFPAY | PROVIDERS: PCP Internal Medicine; Visit Provider Physician Assistant | DX: M19.111 Post-traumatic osteoarthritis, right shoulder (principal); G89.29 Other chronic pain | CPT/HCPCS: 99202 ==